=== PATIENT | male | born 1965 | race Caucasian/White ===

== ENCOUNTER 2020-04-02 14:06 | Emergency (ER) | payer BC, SELFPAY ==
--- NOTE | 2020-04-02 14:40 | XR_ITS ---
EXAMINATION: XR RIBS, LEFT CLINICAL INFORMATION: Pain status post fall COMPARISON: None TECHNIQUE: 3 views of the left ribs were obtained. Chest one view FINDINGS: Chest: The lungs are well-expanded and clear. The heart size and pulmonary vascularity is normal. No gross bony abnormality seen. XR/XR ribs LT min 3V w CXR1V IMPRESSION: Unremarkable chest exam.
--- NOTE | 2020-04-02 14:42 | ED.FALL ---
HPI - Fall General Chief Complaint: General Medical <WILLIAM Schaffer - Last Filed: 04/02/20 15:46> Stated Complaint: fell,work related rib pain <WILLIAM Schaffer - Last Filed: 04/02/20 15:46> Time Seen by Provider: 04/02/20 14:40 <WILLIAM Schaffer - Last Filed: 04/02/20 15:46> Source: patient <WILLIAM Schaffer - Last Filed: 04/02/20 15:46> Mode of arrival: ambulatory <WILLIAM Schaffer - Last Filed: 04/02/20 15:46> Limitations: no limitations <WILLIAM Schaffer - Last Filed: 04/02/20 15:46> History of Present Illness HPI Narrative: 55 y/o male presenting with left sided rib pain after a slip and fall on the ice while working. He reports the pain is on the left side of his chest and tender to touch. Worse with movement and deep breaths. Not SOB. No other injuries. <WILLIAM Schaffer - Last Filed: 04/02/20 15:46> MD complaint: fall <WILLIAM Schaffer - Last Filed: 04/02/20 15:46> Onset (ago): hour(s) (2) <WILLIAM Schaffer - Last Filed: 04/02/20 15:46> Fall from: standing <WILLIAM Schaffer - Last Filed: 04/02/20 15:46> Fall witnessed: no <WILLIAM Schaffer - Last Filed: 04/02/20 15:46> Place fall occurred: work and street <WILLIAM Schaffer - Last Filed: 04/02/20 15:46> Loss of consciousness: none <WILLIAM Schaffer - Last Filed: 04/02/20 15:46> Prolonged down time: no <WILLIAM Schaffer - Last Filed: 04/02/20 15:46> Symptoms prior to fall: chest pain (left sided rib) <WILLIAM Schaffer - Last Filed: 04/02/20 15:46> Context: tripped/slipped <WILLIAM Schaffer - Last Filed: 04/02/20 15:46> Location of injury: chest <WILLIAM Schaffer Last Filed: 04/02/20 15:46> Severity: severe <WILLIAM Schaffer Last Filed: 04/02/20 15:46> Severity scale (1-10): 8 <WILLIAM Schaffer Last Filed: 04/02/20 15:46> Quality: aching <WILLIAM Schaffer - Last Filed: 04/02/20 15:46> Associated symptoms (after fall): chest pain (left lower/side) <WILLIAM Schaffer Last Filed: 04/02/20 15:46> Related Data Home Medications: Previous Rx's Medication Instructions Recorded cyclobenzaprine 10 mg PO TID PRN #10 tab 04/02/20 lidocaine [Lidoderm] 1 patch TOPICAL DAILY #15 ea 04/02/20 naproxen 500 mg PO BID PRN #20 tab 04/02/20 <WILLIAM Schaffer Last Filed: 04/02/20 15:46> Allergies/Adverse Reactions: Allergies Allergy/AdvReac Type Severity Reaction Status Date / Time No Known Allergies Allergy Unverified 11/22/19 15:44 <WILLIAM Schaffer Last Filed: 04/02/20 15:46> Review of Systems Review of Systems: Constitutional: No Fever, No Chills Cardiovascular: + Chest Pain, No SOB, No Orthopnea, No Edema Respiratory: No Cough, No Sputum, No Wheezing, No dyspnea Gastrointestinal: No Nausea, No Vomiting, No Diarrhea, No abdominal Pain Genitourinary: No Dysuria, No Urinary Frequency, No Hematuria Musculoskeletal: + joint pain, + Myalgias Skin: No Skin Lesions, No rash Neuro: No Weakness, No Numbness, No Dizziness, No Headache Heme/Lymph: No Bruising <WILLIAM Schaffer Last Filed: 04/02/20 15:46> PMF Past Medical History Attestation statement: The following information was validated with the patient. <WILLIAM Schaffer Last Filed: 04/02/20 15:46> Medical History: Medical History (Updated 04/03/20 @ 00:00 by Background Daemon) No known health problems <WILLIAM Schaffer - Last Filed: 04/02/20 15:46> Social History Social History: Social History Smoked in Last 30 Days: No Use of substances other than those prescribed or required for medical reasons: No Advance Directives: No Advance Directives Information Provided: Yes <WILLIAM Schaffer - Last Filed: 04/02/20 15:46> Physical Exam Vital Signs: Vital Signs: Last Vital Signs Temp 97.0 F 04/02/20 15:03 Pulse 78 04/02/20 15:03 Resp 16 04/02/20 15:03 BP 189/85 H 04/02/20 15:03 Pulse Ox 99 04/02/20 15:03 Body Mass Index 0.3 Appearance: Alert. Oriented X3. No acute distress. HEENT: normal inspection CVS: Normal heart rate and rhythm. Pulses normal. Respiratory: No respiratory distress. left sided chest wall tenderness, lower anterior and left side Skin: Skin warm and dry. Normal skin color. Normal skin turgor. No rashes. Extremities: atraumatic, no edema Neuro: Oriented X 3. No motor deficit. No sensory deficit. <WILLIAM Schaffer - Last Filed: 04/02/20 15:46> Vital Signs: Last Vital Signs Temp 97.0 F 04/02/20 15:03 Pulse 78 04/02/20 15:03 Resp 16 04/02/20 15:03 BP 189/85 H 04/02/20 15:03 Pulse Ox 99 04/02/20 15:03 Body Mass Index 0.3 <Logan Venegas MD - Last Filed: 04/09/20 08:25> Course Course Course Narrative: 55 y/o male who works for [employer] presenting with left sided rib pain s/p fall on ice. No distress on exam but significant left chest wall tenderness. Lungs CTAB. Will get XR to further assess for rib fx. <WILLIAM Schaffer - Last Filed: 04/02/20 15:46> I have reviewed the chart <Logan Venegas MD - Last Filed: 04/09/20 08:25> Reevaluation(s) Reevaluation #1: XR negative for acute fracture. Stable for discharge home with NSAID and muscle relaxer. Will have him follow up with [facility] given work related injury. <WILLIAM Schaffer - Last Filed: 04/02/20 15:46> Discharge Plan Discharge Clinical Impression: Contusion <WILLIAM Schaffer - Last Filed: 04/02/20 15:46> Patient Disposition: Home, Self-Care <WILLIAM Schaffer - Last Filed: 04/02/20 15:46> Instructions: Rib Contusion (ED) <WILLIAM Schaffer - Last Filed: 04/02/20 15:46> Additional Instructions: Your x-rays today were normal - no rib fractures. Take the prescribed medications as needed for pain. Use ice to the area several times per day. Follow up with your doctor as needed. If you develop worsening pain, shortness of breath or difficulty breathing come back to the ER for further evaluation. <WILLIAM Schaffer - Last Filed: 04/02/20 15:46> Prescriptions: New cyclobenzaprine 10 mg tablet 10 mg PO TID PRN (Reason: muscle spasm) Qty: 10 RF: 0 lidocaine [Lidoderm] 5 % adhesive patch,medicated 1 patch topical DAILY Qty: 15 RF: 0 naproxen 500 mg tablet 500 mg PO BID PRN (Reason: pain) Qty: 20 RF: 0 <WILLIAM Schaffer - Last Filed: 04/02/20 15:46> Referrals: [facility] [Provider Group] - 2 days <WILLIAM Schaffer - Last Filed: 04/02/20 15:46> Stand Alone Forms: Work/School Release <WILLIAM Schaffer - Last Filed: 04/02/20 15:46> Interventions: ED Discharge Assessment Last Done: 04/02/20 16:09 <WILLIAM Schaffer - Last Filed: 04/02/20 15:46> Discharge Date/Time: 04/02/20 16:10 <WILLIAM Schaffer - Last Filed: 04/02/20 15:46>
[2020-04-02 15:03] VITALS: BP 189/85; PULSE 78; RESP 16; TEMP 36.1; O2SAT 99
[2020-04-02] MEDS: Ketorolac Tromethamine 30 MG/ML VIAL IM (15:56)
== END 2020-04-02 16:10 | disposition home or self-care (01) ==
PROVIDERS: Emergency Provider Emergency Medicine
DX: S20.212A Contusion of left front wall of thorax, initial encounter (principal); R07.89 Other chest pain; W00.0XXA Fall on same level due to ice and snow, initial encounter; Y93.9 Activity, unspecified; Y92.410 Unspecified street and highway as the place of occurrence of the external cause; Y99.0 Civilian activity done for income or pay; Z79.899 Other long term (current) drug therapy
CPT/HCPCS: 71101; 96372; 99283; 99284; J1885

== ENCOUNTER 2020-04-14 09:00 | Emergency (ER) | payer BC, SELFPAY ==
[2020-04-14 09:26] VITALS: BP 192/103; PULSE 91; RESP 16; TEMP 37.4; O2SAT 97; BMI 30.5
--- NOTE | 2020-04-14 09:50 | ED_ITS ---
HPI - General Adult General Chief complaint: General Medical Stated complaint: recheck lt rib area inj, Time Seen by Provider: 04/14/20 09:34 Source: patient Mode of arrival: ambulatory History of Present Illness HPI narrative: 55yo Male with no significant past medical history presenting to the ED complaining of continued left-sided rib pain s/p slip and fall out of work truck on 04/02. Patient was seen and evaluated in our ED after fall, had x-rays that were negative for fracture, diagnosed with rib contusion. States pain improving but still too severe to return to work, requesting work note. Denies fever, chills, cough, shortness of breath Onset (ago): day(s) Related Data Previous Rx's Medication Instructions Recorded cyclobenzaprine 10 mg PO TID PRN #10 tab 04/02/20 lidocaine [Lidoderm] 1 patch TOPICAL DAILY #15 ea 04/02/20 naproxen 500 mg PO BID PRN #20 tab 04/02/20 lidocaine [Lidoderm] 1 patch TOPICAL DAILY PRN #30 ea 04/14/20 MDD remove after 12 hours Allergies Allergy/AdvReac Type Severity Reaction Status Date / Time No Known Allergies Allergy Unverified 11/22/19 15:44 Review of Systems Review of Systems: Constitutional: No Weight loss, No Fever, No Chills Cardiovascular: + Chest wall Pain, No SOB Respiratory: No Cough, No Sputum, No Wheezing Musculoskeletal: No joint pain, No Myalgias, No Joint Swelling Skin: No Skin Lesions, No rash Yes all other systems are reviewed and are negative [facility] Past Medical History Attestation statement: The following information was validated with the patient. Medical History (Updated 04/14/20 @ 09:49 by WILLIAM Patino) No known health problems Social History Social History Smoked in Last 30 Days: No Use of substances other than those prescribed or required for medical reasons: No Advance Directives: No Advance Directives Information Provided: Yes Physical Exam Vital Signs: Vital Signs: Last Vital Signs Temp 99.4 F 04/14/20 09:26 Pulse 91 04/14/20 09:26 Resp 16 04/14/20 09:26 BP 192/103 H 04/14/20 09:26 Pulse Ox 97 04/14/20 09:26 Body Mass Index 30.5 Const: General: cooperative and healthy appearing Orientation/consciousness: patient oriented x3 Limitations: no limitations HENMT: Head: Yes normal to inspection Ears: hearing grossly normal bilaterally General nose exam: Normal external nose present Face and sinus: Yes normal facial exam Eyes: General: appearance normal, both eyes and all related structures EOM: EOMs intact bilaterally Neck: Neck: Yes normal visual inspection Chest: Other: Healing ecchymosis noted to left anterior ribs Chest palpation & inspection: no crepitus and tenderness rib (Left-sided upper anterior/lateral ribs) Resp: Effort & Inspection: normal respiratory effort Auscultation: clear to auscultation bilaterally Cardio: Rate: regular rate Heart sounds: S1 normal heart sound present and S2 normal heart sound present GI: Inspection: Yes normal to inspection Palpation (GI): Soft to palpation, nontender, no guarding and not rigid : General: Yes no CVA tenderness Back/Spine/Pelvis: Back: no CVA tenderness Skin: Rashes: no rashes Wounds: no wounds Neuro: General: patient oriented x3 Gait exam (Neuro): Normal gait present Extrem: General: Yes normal to inspection Medical Decision Making MDM Narrative Medical decision making narrative: On exam hypertensive, NAD/nontoxic, physical exam as above. Offered patient repeat x-ray, he did not deem necessary. Low concern for PE/ACS or pneumonia at this time. Discharge Plan Discharge Clinical Impression: Rib contusion Qualifiers: Encounter type: subsequent encounter Laterality: left Qualified Code(s): S20.212D - Contusion of left front wall of thorax, subsequent encounter Patient Disposition: Home, Self-Care Instructions: Rib Contusion (ED) Additional Instructions: Continue to ice your ribs and rest. Take Tylenol Motrin at home for pain. Use Lidoderm patches for pain as well. Continue to practice deep breathing, your risk of pneumonia if you do not take deep breaths. If developed fever, cough, shortness of breath, or generalized chest discomfort return to the ED Prescriptions: New lidocaine [Lidoderm] 5 % adhesive patch,medicated 1 patch topical DAILY MDD remove after 12 hours PRN (Reason: pain) Qty: 30 RF: 0 No Action cyclobenzaprine 10 mg tablet 10 mg PO TID PRN (Reason: muscle spasm) Qty: 10 RF: 0 lidocaine [Lidoderm] 5 % adhesive patch,medicated 1 patch topical DAILY Qty: 15 RF: 0 naproxen 500 mg tablet 500 mg PO BID PRN (Reason: pain) Qty: 20 RF: 0 Referrals: Physician,None [Primary Care Provider] - 5 days Stand Alone Forms: Work/School Release Interventions: ED Discharge Assessment Last Done: 04/14/20 09:54 Discharge Date/Time: 04/14/20 09:55
== END 2020-04-14 09:55 | disposition home or self-care (01) ==
PROVIDERS: Emergency Provider Emergency Medicine
DX: S20.212D Contusion of left front wall of thorax, subsequent encounter (principal); W17.89XA Other fall from one level to another, initial encounter; I10 Essential (primary) hypertension; Y93.89 Activity, other specified; Y92.812 Truck as the place of occurrence of the external cause; Y99.0 Civilian activity done for income or pay
CPT/HCPCS: 99283

== ENCOUNTER 2021-10-03 11:12 | Emergency (ER) | payer BC, SELFPAY ==
[2021-10-03 11:42] VITALS: BP 123/80; PULSE 82; RESP 18; TEMP 36.6; O2SAT 93; BMI 32.3
[2021-10-03 12:42] LABS: MANUAL DIFF FLAG NO
[2021-10-03 12:45] LABS: Basophils Percent Auto 0.9 % (0-2); Eosinophils Absolute Auto 0.1 X10*3/uL (0.0-0.4); Eosinophils Percent Auto 1.2 % (0-4); Hematocrit 37.6 % (42.0-52.0); Hemoglobin 12.5 g/dl (14.0-18.0); Imm Gran Abs Auto 0.01 X10*3/uL (0.00-0.03); Imm Gran Pct Auto 0.2 % (0.0-0.4); Lymphocytes Absolute Auto 1.1 X10*3/uL (1.2-4.9); Lymphocytes Percent Auto 26.5 % (20-40); Mean Corpuscular HGB Conc 33.2 g/dl (31.0-36.0); Mean Corpuscular Hemoglobin 31.5 pg (27.0-33.0); Mean Corpuscular Volume 94.7 fL (80.0-98.0); Mean Platelet Volume 9.4 fL (9.4-12.4); Monocytes Absolute Auto 0.6 X10*3/uL (0.1-1.2); Neutrophils Absolute Auto 2.5 x10*3/uL (2.0-8.3); Neutrophils Percent Auto 58.2 % (45-73); Platelet Count 180 X10*3/uL (160-400); Red Blood Count 3.97 X10*6/uL (4.60-5.80); Red Cell Distribution Width 13.9 % (11.0-16.0); White Blood Count 4.2 X10*3/uL (4.8-10.8)
[2021-10-03 13:27] LABS: Alanine Aminotransferase 60 U/L (0-40); Alkaline Phosphatase 133 U/L (39-117); Anion Gap 15 (12-20); Aspartate Amino Transferase 115 U/L (5-37); Bilirubin Direct 0.3 mg/dL (0.0-0.5); Bilirubin Total 0.7 mg/dL (0.0-1.0); Blood Urea Nitrogen 3 mg/dL (9-16); Calcium 8.4 mg/dL (8.4-10.2); Carbon Dioxide 23 mmol/L (22-29); Chloride 102 mmol/L (96-108); Creatinine Clr Calc Pharmacy 154.8; Estimated Glomerular Filt Rate > 60; Glucose Random 105 mg/dL (60-115); Lipase 10 U/L (8-78); Potassium 3.6 mmol/L (3.3-5.1); Sodium 136 mmol/L (135-145); Total Protein 7.7 g/dL (6.5-8.0)
--- NOTE | 2021-10-03 17:21 | ED_ITS ---
HPI - General Adult General Chief complaint: Nausea/Vomiting/Diarrhea Stated complaint: high bp/dizziness Time Seen by Provider: 10/03/21 17:06 Source: patient Mode of arrival: ambulatory Limitations: no limitations History of Present Illness HPI narrative: Patient comes to the emergency room complaining of stress. Patient states that earlier today he was at work, he had an argument with his boss, per patient he was told to come to the emergency room by his boss and get a work note. Patient has no complaints. Patient denies suicidal or homicidal ideation Related Data Previous Rx's Medication Instructions Recorded cyclobenzaprine 10 mg tablet 10 mg PO TID PRN muscle spasm #10 04/02/20 tabs lidocaine 5 % topical patch 1 patch topical DAILY #15 ea 04/02/20 (Lidoderm) naproxen 500 mg tablet 500 mg PO BID PRN pain #20 tabs 04/02/20 lidocaine 5 % topical patch 1 patch topical DAILY PRN pain #30 04/14/20 (Lidoderm) ea Allergies Allergy/AdvReac Type Severity Reaction Status Date / Time No Known Allergies Allergy Verified 10/03/21 11:41 Review of Systems Review of Systems: Constitutional : No Weight loss, No Fever, No Chills, No Night Sweats, No Fatigue, No Malaise ENT/Mouth : No Hearing loss, No Ear Pain, No Nasal Congestion, No Sinus Pain, No Hoarseness, No sore throat, No Rhinorrhea, No Swallowing Difficulty Eyes: No Eye Pain, No Swelling, No Redness, No Foreign Body, No Discharge, No Vision Changes Cardiovascular : No Chest Pain, No SOB, No Dyspnea on Exertion, No Orthopnea, No Edema, No Palpitations Respiratory : No Cough, No Sputum, No Wheezing, No Smoke Exposure, No Dyspnea Gastrointestinal : No Nausea, No Vomiting, No Diarrhea, No Constipation, No abdominal Pain, No Hematochezia, No Melena Genitourinary : no irregular bleeding, No Dysuria, No Urinary Frequency, No Hematuria, No Urinary Incontinence, No Urgency, No Flank Pain, No Urinary Flow Changes, No Hesitancy Musculoskeletal : No joint pain, No Myalgias, No Joint Swelling Skin : No Skin Lesions, No rash Neuro : No Weakness, No Numbness, No Paresthesias, No Loss of Consciousness, No Dizziness, No Headache Psych : No Anxiety/Panic, No Depression, No SI/HI/AH/VH, No Social Issues, feeling stressed Heme/Lymph: No Bruising, No Bleeding,No Lymphadenopathy Endocrine : No Polyuria, No Polydipsia, No Temperature Intolerance [facility] Past Medical History Medical History No known health problems Social History Social History Advance Directives: No Advance Directives Information Provided: Yes Physical Exam ED Vital Signs: Vital Signs - 24 hr 10/03/21 11:42 Temperature 97.8 F Pulse Rate 82 Respiratory Rate 18 Blood Pressure 123/80 Pulse Oximetry 93 Oxygen Delivery Method Room Air BMI result Body Mass Index 32.3 Const Other: Appearance: Alert. Oriented X3. No acute distress. Eyes: Pupils equal, round and reactive to light. ENT: Pharynx normal. Neck: Normal inspection. Neck supple. No lymph nodes noted. No crepitus CVS: Normal heart rate and rhythm. Pulses normal. Normal S1 and S2 Respiratory: No respiratory distress. Breath sounds normal. No Wheezing. No rales Abdomen: Soft and nontender. No rigidity. No distention. Skin: Skin warm and dry. Normal skin color. Normal skin turgor. Extremities: No lower extremity edema. No Lacerations. No Rash Neuro: Oriented X 3. No motor deficit. No sensory deficit. Moving all extremities. No slurred speech. CN 2 through 12 grossly intact Psych: calm, cooperative, normal affect Course Course Course Narrative: I discussed labs with the patient, patient ready to be discharged. Patient has no physical complaints. Denies SI or HI Medical Decision Making Lab Data Result diagrams: 10/03/21 12:32 10/03/21 12:32 Labs: Lab Results 10/03/21 10/03/21 Range/Units 12:32 12:32 WBC 4.2 L (4.8-10.8) X10*3/uL RBC 3.97 L (4.60-5.80) X10*6/uL Hgb 12.5 L (14.0-18.0) g/dl Hct 37.6 L (42.0-52.0) % MCV 94.7 (80.0-98.0) fL MCH 31.5 (27.0-33.0) pg MCHC 33.2 (31.0-36.0) g/dl RDW 13.9 (11.0-16.0) % Plt Count 180 (160-400) X10*3/uL MPV 9.4 (9.4-12.4) fL Immature Gran % (Auto) 0.2 (0.0-0.4) % Neut % (Auto) 58.2 (45-73) % Lymph % (Auto) 26.5 (20-40) % [place] % (Auto) 13.0 H (2-11) % Eos % (Auto) 1.2 (0-4) % Baso % (Auto) 0.9 (0-2) % Lymph # (Auto) 1.1 L (1.2-4.9) X10*3/uL [place] # (Auto) 0.6 (0.1-1.2) X10*3/uL Eos # (Auto) 0.1 (0.0-0.4) X10*3/uL Baso # (Auto) 0.0 (0.0-0.2) X10*3/uL Abs Immat Gran (auto) 0.01 (0.00-0.03) X10*3/uL Absolute Neuts (auto) 2.5 (2.0-8.3) x10*3/uL Absolute Nucleated RBC 0.000 (0.0-0.012) X10*3/uL Nucleated RBC % (auto) 0.0 (0.0-0.2) /100WBC Sodium 136 (135-145) mmol/L Potassium 3.6 (3.3-5.1) mmol/L Chloride 102 (96-108) mmol/L Carbon Dioxide 23 (22-29) mmol/L Anion Gap 15 (12-20) BUN 3 L (9-16) mg/dL Creatinine 0.66 (0.5-1.4) mg/dL Estim Creat Clear Calc 154.8 Estimated GFR > 60 Random Glucose 105 (60-115) mg/dL Calcium 8.4 (8.4-10.2) mg/dL Total Bilirubin 0.7 (0.0-1.0) mg/dL Direct Bilirubin 0.3 (0.0-0.5) mg/dL AST 115 H (5-37) U/L ALT 60 H (0-40) U/L Alkaline Phosphatase 133 H (39-117) U/L Total Protein 7.7 (6.5-8.0) g/dL Albumin 4.0 (3.5-5.0) g/dL Lipase 10 (8-78) U/L Discharge Plan Discharge Clinical Impression: Stress at work Patient Disposition: Home, Self-Care Instructions: Anxiety (ED) Additional Instructions: Please follow-up with your primary care physician tomorrow. If you have any worsening or new symptoms, please return to the emergency room or call 911 Prescriptions: No Action cyclobenzaprine 10 mg tablet 10 mg PO TID PRN (Reason: muscle spasm) Qty: 10 0RF lidocaine [Lidoderm] 5 % adhesive patch,medicated 1 patch topical DAILY Qty: 15 0RF Rx Instructions: leave on most painful area for up to 12 hrs naproxen 500 mg tablet 500 mg PO BID PRN (Reason: pain) Qty: 20 0RF lidocaine [Lidoderm] 5 % adhesive patch,medicated 1 patch topical DAILY MDD remove after 12 hours PRN (Reason: pain) Qty: 30 0RF Rx Instructions: leave on most painful area for up to 12 hrs
== END 2021-10-03 17:45 | disposition home or self-care (01) ==
PROVIDERS: Emergency Provider Emergency Medicine
DX: R11.2 Nausea with vomiting, unspecified (principal); R19.7 Diarrhea, unspecified; Z56.6 Other physical and mental strain related to work
CPT/HCPCS: 36415; 80048; 80076; 83690; 85025; 99283

== ENCOUNTER 2022-05-11 07:54 | Outpatient (REF) | payer BC, SELFPAY ==
--- NOTE | ~2022-05-11 | XR_ITS ---
EXAMINATION: XR HIP, LEFT CLINICAL INFORMATION: Pain status-post injury. COMPARISON: None TECHNIQUE: AP and frog-leg lateral views of the left hip. FINDINGS: Bony mineralization is normal. There is moderate narrowing of the left acetabular joint space, in particular superolateral. There is mild subchondral sclerosis of the left acetabular roof, with a small peripheral osteophyte. No fracture or dislocation is seen. The left femoral head is smooth. There are pelvic phleboliths. No foreign body is seen. XR/XR hip LT min 2V IMPRESSION: There is moderate osteoarthritic change of the left hip. No fracture or dislocation is seen.
[2022-05-11 08:08] LABS: MANUAL DIFF FLAG NO
[2022-05-11 08:45] LABS: Basophils Percent Auto 0.5 % (0-2); Eosinophils Absolute Auto 0.1 X10*3/uL (0.0-0.4); Hematocrit 37.3 % (42.0-52.0); Hemoglobin 13.7 g/dl (14.0-18.0); Imm Gran Abs Auto 0.04 X10*3/uL (0.00-0.03); Imm Gran Pct Auto 0.7 % (0.0-0.4); Immature Retic Fraction 7.5 % (2.3-13.4); Lymphocytes Percent Auto 16.7 % (20-40); Mean Corpuscular HGB Conc 36.7 g/dl (31.0-36.0); Mean Corpuscular Hemoglobin 36.1 pg (27.0-33.0); Mean Corpuscular Volume 98.4 fL (80.0-98.0); Mean Platelet Volume 10.2 fL (9.4-12.4); Monocytes Absolute Auto 0.6 X10*3/uL (0.1-1.2); Monocytes Percent Auto 10.7 % (2-11); Neutrophils Absolute Auto 4.1 x10*3/uL (2.0-8.3); Neutrophils Percent Auto 70.4 % (45-73); Platelet Count 218 X10*3/uL (160-400); Red Blood Count 3.79 X10*6/uL (4.60-5.80); Red Cell Distribution Width 13.3 % (11.0-16.0); Retic HGB Equivalent 37.2 pg (30.0-35.0); Reticulocyte Percent 1.8 % (0.5-1.8); Reticulocytes Absolute 0.069 X10*6/uL (0.026-0.095); White Blood Count 5.8 X10*3/uL (4.8-10.8)
[2022-05-11 09:10] LABS: B Type Natriuretic Peptide 29 pg/mL (<100)
[2022-05-11 09:19] LABS: Alanine Aminotransferase 49 U/L (0-40); Albumin Level 4.1 g/dL (3.5-5.0); Alkaline Phosphatase 119 U/L (39-117); Anion Gap 14 (12-20); Aspartate Amino Transferase 81 U/L (5-37); Bilirubin Total 0.9 mg/dL (0.0-1.0); Blood Urea Nitrogen 5 mg/dL (9-16); Calcium 9.1 mg/dL (8.4-10.2); Carbon Dioxide 28 mmol/L (22-29); Chloride 101 mmol/L (96-108); Cholesterol 229 mg/dL; Estimated Glomerular Filt Rate > 60; Glucose Random 93 mg/dL (60-115); HDL Cholesterol 62 mg/dL; Iron 97 mcg/dL (45-160); LDL Cholesterol Calculated 152 mg/dl; Percent Iron Saturation 31 % (15-50); Potassium 4.3 mmol/L (3.3-5.1); Sodium 139 mmol/L (135-145); Total Iron Binding Capacity 312 mcg/dL (228-428); Total Protein 7.8 g/dL (6.5-8.0); Triglycerides 77 mg/dL; Unsaturated Iron Binding 215 ug/dL
[2022-05-11 09:43] LABS: Ferritin 467 ng/mL (20-250); Folate 11.5 ng/mL (> or = 4.0); Free T4 (Free Thyroxine) 0.94 ng/dL (0.71-1.85); Prostate Specific Antigen Scr 2.61 ng/mL (<0.05-4.0); Thyroid Stimulating Hormone 2.15 uIU/mL (0.32-4.0); Vitamin B12 272 pg/mL (200-900)
[2022-05-12 05:48] LABS: HBc Num1 0.13 S/CO (0.00-0.79); HBsAGNum1 0.32 S/CO (0.00-0.99); Hepatitis B Core Antibody Nonreactive (Nonreactive); Hepatitis B Surface Antigen Negative (Negative); ~HepC Num1 0.36 S/CO (0.00-0.79); ~Hepatitis B Surface Antibody NONREACTIVE (Nonreactive); ~Hepatitis C Antibody Nonreactive (Nonreactive)
== END 2022-05-11 07:55 | disposition home or self-care (01) ==
LOC: HO.LAB 07:54
PROVIDERS: PCP Internal Medicine; Visit Provider Internal Medicine
DX: E78.00 Pure hypercholesterolemia, unspecified (principal); R19.7 Diarrhea, unspecified; R22.42 Localized swelling, mass and lump, left lower limb; R79.89 Other specified abnormal findings of blood chemistry; K76.0 Fatty (change of) liver, not elsewhere classified; M79.89 Other specified soft tissue disorders; M25.552 Pain in left hip; Z12.5 Encounter for screening for malignant neoplasm of prostate
CPT/HCPCS: 36415; 73502; 80053; 80061; 82607; 82728; 82746; 83540; 83880; 84153; 84439; 84443; 85025; 85045; 86704; 86706; 86803; 87340

== ENCOUNTER 2023-02-11 10:46 | Outpatient (REF) | payer BC, SELFPAY ==
--- NOTE | ~2023-02-11 | XR_ITS ---
EXAMINATION: XR KNEE, RIGHT CLINICAL INFORMATION: Primary osteoarthritis COMPARISON: None available. TECHNIQUE: Four views of the right knee. FINDINGS: No fracture or dislocation. No suprapatellar joint effusion. Moderate narrowing of the medial joint space height. Small tricompartmental marginal osteophytes. No localized soft tissue swelling of the anterior knee. XR/XR knee RT 4V IMPRESSION: Mild to moderate degenerative changes of the right knee.
== END 2023-02-11 10:47 | disposition home or self-care (01) ==
LOC: HO.XRAY 10:46
PROVIDERS: Visit Provider Physical Medicine & Rehabilitation
DX: M17.11 Unilateral primary osteoarthritis, right knee (principal)
CPT/HCPCS: 73564

== ENCOUNTER 2023-03-14 11:29 | Outpatient (AMB) | payer BC, SELFPAY ==
[2023-03-14 11:44] VITALS: BP 140/82; PULSE 87; TEMP 37.3; O2SAT 96; BMI 35.5
--- NOTE | 2023-03-14 11:44 | MHC.OFFWIV ---
Intake Vital Signs 03/14/23 11:44 Height 6 ft Weight 261 lb 8 oz BMI 35.5 BP 140/82 H Blood Pressure Location Lt brachial Position Sitting Pulse 87 Pulse Source Pulse Oximeter Temp 99.1 F Temp Source Oral Pulse Oximetry (%) 96 Intake Visit Reasons: EP, body aches, headache (masked-no phone) Intake Note: pt is here today for body aches and headache started for the last day, with no sleep. Vomited 3 times last night. Patient Tobacco Use Status: Former Tobacco user Allergies No Known Allergies Allergy (Verified 03/14/23 11:45) Do you need a note to return to daycare/school/sports/work: Yes HPI HPI Comments History of Present Illness Details Jose is a very pleasant 58 year old male who presents to walkin clinic today for cough and bodyaches X 1 day Patient reports he works at the [employer], 2 coworkers recently returned after being out with Covid. He started with body aches, fatigue and cough since yesterday Cough is nonproductive. Was not able to sleep last night, couldn't get comfortable d/t body aches Has not tested for Covid, called out from work and requesting a work note Denies chest pain, syncope, dizziness, weakness, palpitations, diarrhea. Vomited yesterday but has been able to tolerate po today. [facility] Medical History No known health problems Family History Maternal Grandfather Pancreatic cancer Social History Housing: Condominium Alcohol intake: current Alcohol intake frequency: a few times a month Alcohol type: beer Patient Tobacco Use Status: Former Tobacco user Tobacco use type: Cigarette Years Smoked: 11 years old e-Cigarette/Vaping Use: Never Used Second Hand Smoke Exposure: No Current occupational status: employed Cognitive needs: No Hearing needs: No Vision needs: Yes Review of Systems Const All systems reviewed & are unremarkable except as noted in HPI and below Physical Exam Vital Signs: Last Vital Signs Temp 99.1 F 03/14/23 11:44 Pulse 87 03/14/23 11:44 BP 140/82 H 03/14/23 11:44 Pulse Ox 96 03/14/23 11:44 BMI result Body Mass Index 35.5 General: awake, alert, oriented. Answers questions appropriately. Fully engaged in examination. Skin: warm, dry, intact HEENT: TMs intact bilaterally, no redness. Posterior pharynx without erythema or exudate. Sclera without icterus or injection. no lymphadenopathy. Cardiac: External chest normal in appearance. Respiratory: +cough. LSCTAB. Abdomen: without gross distension. Neurological: Oriented to person, place, time and situation. Thought process intact. Psychiatric: Appropriate mood and affect. Good judgment and insight. Assessment & Plan Assessment & Plan (1) Cough: Code(s): R05.9 - Cough, unspecified (2) Exposure to COVID-19 virus: Code(s): Z20.822 - Contact with and (suspected) exposure to COVID-19 Plan URI, no abx warranted. SARS-CoV2/FLU/RSV swab collected, results pending. Patient aware he will be called with results. Benzonatate 100mg po bid as needed Rest, drink plenty of fluids, tylenol or motrin as needed. Recommend taking OTC nasal decongestants or flonase. Follow up with pcp or in clinic for any new or worsening symptoms. Go to ER for shortness of breath, chest pain, palpitations, weakness, dizziness. All questions and concerns addressed during the visit. Patient agrees with the plan. Orders: Orders SARS-CoV2/FLU/RSV Today J06.9 - Acute upper respiratory infection, unspecified Medications: New benzonatate 100 mg PO BID PRN 20 caps 0RF cough Coding Level of Care Code Est Pt Level 4 (01867) Diagnoses Cough R05.9 Exposure to COVID-19 virus Z20.822
== END 2023-03-14 13:29 | disposition home or self-care (01) ==
PROVIDERS: PCP Internal Medicine; Visit Provider Registered Nurse Emergency
DX: R05.9 Cough, unspecified (principal); Z20.822 Contact with and (suspected) exposure to COVID-19
CPT/HCPCS: 99214

== ENCOUNTER 2023-03-14 13:18 | Outpatient (REF) | payer BC, SELFPAY ==
[2023-03-14 18:02] LABS: Influenza A PCR POSITIVE (Negative); Influenza B PCR NEGATIVE (Negative); Resp Syncy Virus RNA Qual PCR NEGATIVE (Negative); SARS COV2 PCR INHOUSE NEGATIVE (Negative)
== END 2023-03-14 13:19 | disposition home or self-care (01) ==
LOC: HO.LAB 13:18
PROVIDERS: Visit Provider Registered Nurse Emergency
DX: Z11.52 Encounter for screening for COVID-19 (principal); J06.9 Acute upper respiratory infection, unspecified
CPT/HCPCS: 0241U

== ENCOUNTER 2023-06-10 11:16 | Emergency (ER) | payer BC, SELFPAY ==
--- NOTE | ~2023-06-10 | XR_ITS ---
STUDY: Chest, left rib series and left breast INDICATION: Pain after injury COMPARISON: 04/02/2020 ribs TECHNIQUE: PA chest, 3 view left rib series, 4 views left breast FINDINGS: Chest and left ribs: Heart, mediastinum and vascularity within normal limits. Right lung is clear. Multiple interval, but old appearing/healing left rib fractures are seen. BB is placed in the lower left lateral rib cage. Acute appearing fracture now seen involving the eighth anterolateral rib. Left wrist: Arrow points to the ulnar aspect of the wrist where no radiographic finding is seen. There is, however, mildly displaced fracture of the radial aspect of the distal radius. Degenerative changes identified first carpometacarpal joint. XR/XR ribs LT min 3V w CXR1V IMPRESSION: Acute appearing nondisplaced left eighth anterolateral rib fracture superimposed on multiple old appearing left rib fractures. Acute-appearing distal left radial fracture.
--- NOTE | ~2023-06-10 | XR_ITS ---
STUDY: Chest, left rib series and left breast INDICATION: Pain after injury COMPARISON: 04/02/2020 ribs TECHNIQUE: PA chest, 3 view left rib series, 4 views left breast FINDINGS: Chest and left ribs: Heart, mediastinum and vascularity within normal limits. Right lung is clear. Multiple interval, but old appearing/healing left rib fractures are seen. BB is placed in the lower left lateral rib cage. Acute appearing fracture now seen involving the eighth anterolateral rib. Left wrist: Arrow points to the ulnar aspect of the wrist where no radiographic finding is seen. There is, however, mildly displaced fracture of the radial aspect of the distal radius. Degenerative changes identified first carpometacarpal joint. XR/XR wrist LT min 3V IMPRESSION: Acute appearing nondisplaced left eighth anterolateral rib fracture superimposed on multiple old appearing left rib fractures. Acute-appearing distal left radial fracture.
[2023-06-10 11:45] VITALS: BP 158/59; PULSE 84; RESP 18; TEMP 37.1; O2SAT 97; BMI 30.1
--- NOTE | 2023-06-10 11:45 | ED_ITS ---
HPI - General Adult General Chief complaint: Fall Stated complaint: fall l side inj Time Seen by Provider: 06/10/23 14:31 Source: patient Mode of arrival: ambulatory Limitations: no limitations History of Present Illness HPI narrative: Patient is a 58 year old assigned male at with a history of anemia presenting to the emergency department today with left wrist and rib pain. Patient states that earlier today he slipped on a curb and landed on his left side and now has left wrist and left rib pain. Patient denies any head strike or loss of consciousness. Patient denies any dizziness, lightheadedness, abdominal pain, nausea, vomiting, fever, chills, blurry vision, double vision, loss of vision, chest pain, difficulty breathing, shortness of breath, back pain, night sweats, pain with urination, increased urinary frequency, increased urinary urgency, blood in his urine or stool, syncope or a near syncopal episode, bowel incontinence, bladder incontinence, bowel retention, bladder retention, or any other complaints at this time. Onset (ago): minute(s) Severity: mild Severity scale (1-10): 3 Pain Consistency: constant Relieving factors: none Exacerbating factors: none Associated symptoms: denies other symptoms Treatments prior to arrival: none Related Data Previous Rx's ?Medication ?Instructions ?Recorded blood pressure monitor (Blood #1 ea 02/16/22 Pressure Kit) sildenafil 100 mg tablet (Viagra) 100 mg PO DAILY PRN sexual 07/21/22 activity #14 tabs benzonatate 100 mg capsule 100 mg PO BID PRN cough #20 caps 03/14/23 amoxicillin 875 mg-potassium 1 tab PO BID 10 days #20 tabs 06/10/23 clavulanate 125 mg tablet Allergies Allergy/AdvReac Type Severity Reaction Status Date / Time No Known Allergies Allergy Verified 06/10/23 11:47 Review of Systems Constitutional: Constitutional: Reports no additional constitutional complaints, Denies chills, Denies fever(s) and Denies night sweats Eyes: Eyes: Reports no additional eye complaints, Denies blurry vision, Denies change in vision, Denies diplopia, Denies eye discharge, Denies loss of vision and Denies eye pain ENT: Denies dizziness Cardiovascular: Cardiovascular: Reports no additional cardiovascular complaints, Denies chest pain, Denies lightheadedness, Denies Loss of Consciousness and Denies dyspnea Respiratory: Respiratory: Reports no additional respiratory complaints and Denies dyspnea Gastrointestinal: Gastrointestinal: Reports no additional gastrointestinal complaints, Denies abdominal pain, Denies melena, Denies hematochezia, Denies change in bowel habits and Denies change in stool character Genitourinary: Genitourinary: Reports no additional male genitourinary complaints, Denies hematuria, Denies oliguria, Denies difficulty urinating, Denies dysuria, Denies urinary frequency, Denies urinary hesitancy, Denies urinary incontinence and Denies urinary urgency Musculoskeletal: Musculoskeletal: Reports no additional musculoskeletal complaints, Denies numbness and Denies tingling Comments: left hand pain, left rib pain Neurologic: Denies dizziness, Denies loss of vision, Denies numbness and Denies tingling Psychiatric: Psychiatric: Reports no additional psychiatric complaints Endocrine: Endocrine: Reports no additional endocrine complaints Hematologic/Lymphatic: Hematologic/Lymphatic: Reports no additional hematologic/lymphatic complaints Allergic/Immunologic: Allergic/Immunologic: Reports no additional allergic/immunologic complaints PMFSH Past Medical History Attestation statement: The following information was validated with the patient. Source: old records reviewed and nursing notes reviewed Medical History No known health problems Family History Family History Maternal Grandfather Pancreatic cancer Social History Social History [facility] Alcohol intake: current Alcohol intake frequency: a few times a month Alcohol type: beer Patient Tobacco Use Status: Former Tobacco user Tobacco use type: Cigarette Years Smoked: 11 years old e-Cigarette/Vaping Use: Never Used Second Hand Smoke Exposure: No Advance Directives: No Advance Directives Information Provided: No Current occupational status: employed Cognitive needs: No Hearing needs: No Vision needs: Yes Physical Exam ED Vital Signs: Vital Signs - 24 hr 06/10/23 11:45 06/10/23 14:51 Temperature 98.7 F 98.4 F Pulse Rate 84 78 Respiratory Rate 18 16 Blood Pressure 158/59 H 173/95 H Pulse Oximetry 97 Oxygen Delivery Method Room Air Room Air BMI result Body Mass Index 30.1 Const General: cooperative, no acute distress, alert and awake Nutritional Appearance: well nourished Orientation/consciousness: patient oriented x3 Limitations: no limitations HENMT Head: Yes normal to inspection and Yes atraumatic Ears: hearing grossly normal bilaterally and external ears normal General nose exam: Normal external nose present, no nasal discharge noted and no epistaxis Face and sinus: Yes normal facial exam, No abrasion and No laceration Mouth: Normal oral and palatal mucosa present, no drooling and no muffled voice Eyes General: appearance normal, both eyes and all related structures Periorbital: periorbital findings normal Eyelids: Yes eyelids normal Conjunctivae: conjunctivae normal Pupils: Equal, round and reactive pupils present EOM: EOMs intact bilaterally Neck Neck: Yes normal visual inspection, Yes full ROM and Yes no lymphadenopathy Chest Chest palpation & inspection: normal inspection of the chest Resp Effort & Inspection: normal respiratory effort and able to speak in complete sentences GI Inspection: Yes normal to inspection Neuro General: patient oriented x3 and moves all extremities Cranial nerves: Yes Equal, round and reactive pupils present Cognition (Neuro): normal cognition Motor exam (neuro): 5/5 motor strength present throughout Sensory Exam: Normal double simultaneous stimulation for sensation Coordination: [id number] test normal Extrem Other: small abrasion to the dorsal left wrist - no active bleeding, left wrist swelling General: Yes full ROM and Yes capillary refill normal Psych Appearance: grossly normal Mental Status: mental status grossly normal Affect: normal affect Attitude: cooperative Thought process: Normal thought process present Thought content: Normal thought content present Insight: Good insight present (Psych) Course Course Course Narrative: RME performed by Regine Sloan PA-C. Patient is a 58 year old assigned male at presenting to the emergency department with left rib pain and left wrist pain after a slip and fall. Detailed physical exam and review of systems are deferred to the printed circuit board panels trimmer. Imaging ordered. Patient placed back in the waiting room pending room availability and results. Procedures Orthopedic Splinting/Casting Injury #1: Side: left Upper Extremity Injury Location: wrist Upper Extremity Immobilizer: sling/shoulder immobilizer and sugar tong splint Medical Decision Making Medical Decision Making MDM Narrative: Patient is a 58 year old assigned male at with a history of anemia presenting to the emergency department today with left wrist and left rib pain. Patient's physical exam was as noted in the physical exam portion of this note. Patient's left ribs and chest x-ray showed an acute left 8th rib fx with multiple old fractures. Patient's left wrist x-ray showed a distal left radial fracture. I explained my physical exam findings as well as all test results to the patient. I answered all questions asked by the patient. Patient's left wrist was splinted in a sugar tong splint, without incident. Patient's PMS was intact prior to and after splint placement. Patient's left arm was placed in a sling. Patient's PMS was intact prior to and after sling placement. Given patient's small abrasion over the fractured wrist, will cover with augmentin. I stressed the importance of the patient taking his medication as prescribed. I stressed the importance of the patient following up with his primary care provider and an orthopedic provider. I stressed the importance of the patient returning to the emergency department immediately if his symptoms were to worsen or if he were to develop any dizziness, shortness of breath, difficulty breathing, chest pain, blurry vision, loss of vision, nausea, vomiting, abdominal pain, fever, chills, back pain, or any other complaints. Patient verbalized agreement and understa nding with this treatment plan and discharge. Differential Diagnosis Differential Diagnoses: The differential diagnosis associated with the presentation includes Left wrist fracture Left rib fracture Fall Admission/Observation Consideration of admission/observation: Escalation of care including admission/observation considered Patient would have been admitted to the hospital had his work up had any findings where hospital admission was appropriate and his clinical presentation warranted hospital admission. Independent Interpretation I performed an independent interpretation of an: Plain X-Ray Interpretation: My interpretation is in agreement with the radiologist's impression of these imaging studies. STUDY: Chest, left rib series and left breast INDICATION: Pain after injury COMPARISON: 04/02/2020 ribs TECHNIQUE: PA chest, 3 view left rib series, 4 views left breast FINDINGS: Chest and left ribs: Heart, mediastinum and vascularity within normal limits. Right lung is clear. Multiple interval, but old appearing/healing left rib fractures are seen. BB is placed in the lower left lateral rib cage. Acute appearing fracture now seen involving the eighth anterolateral rib. Left wrist: Arrow points to the ulnar aspect of the wrist where no radiographic finding is seen. There is, however, mildly displaced fracture of the radial aspect of the distal radius. Degenerative changes identified first carpometacarpal joint. XR/XR ribs LT min 3V w CXR1V IMPRESSION: Acute appearing nondisplaced left eighth anterolateral rib fracture superimposed on multiple old appearing left rib fractures. Acute-appearing distal left radial fracture Dictated By: Juju Ozuna MD Signed By: Electronically signed by Juju Ozuna MD 06/10/23 9420 Radiology Impression Discussion of test interpretation with radiology: I have reviewed the radiologist's reading. Prescription Management I considered prescription management with: Antibiotic (patient prescribed augmentin to cover possible open fx) Discharge Plan Discharge Clinical Impression: Fracture of wrist, Fracture of rib Patient Disposition: Home, Self-Care Instructions: Wrist Fracture in Adults (ED), Rib Fracture (ED) Additional Instructions: Do NOT get the splint wet. If you feel the splint is too tight, you may loosen the AGUSTO wraps around it. If you find yourself loosening them so much you see the underlying splint material, return to ther ER immediately. Follow up with your primary care provider and an orthopedic provider. Return to the emergency department immediately if your symptoms worsen or if you develop any dizziness, shortness of breath, difficulty breathing, chest pain, blurry vision, loss of vision, nausea, vomiting, abdominal pain, fever, chills, back pain, or any other complaints. Prescriptions: New amoxicillin-pot clavulanate 875-125 mg tablet 1 tab PO BID 10 Days Qty: 20 0RF No Action (DME) blood pressure monitor [Blood Pressure Kit] Kit See Rx Instructions .ROUTE .MEDSUPPLY Qty: 1 0RF Rx Instructions: As directed sildenafil [Viagra] 100 mg tablet 100 mg PO DAILY PRN (Reason: sexual activity) Qty: 14 3RF Rx Instructions: administer 30 minutes to 4 hours before activity benzonatate 100 mg capsule 100 mg PO BID PRN (Reason: cough) Qty: 20 0RF Referrals: [facility] [place] [facility] [Provider Group] (Call to establish and follow up with the orthopedic team. ) Joycelyn Blankenship MD [Primary Care Provider] - Stand Alone Forms: Work/School Release Interventions: ED Discharge Assessment Last Done: 06/10/23 14:51 Discharge Date/Time: 06/10/23 14:52 Print Language: [place]er
[2023-06-10 14:51] VITALS: BP 173/95; PULSE 78; RESP 16; TEMP 36.9
== END 2023-06-10 14:52 | disposition home or self-care (01) ==
PROVIDERS: Emergency Provider Emergency Medicine; PCP Internal Medicine
DX: S52.502A Unspecified fracture of the lower end of left radius, initial encounter for closed fracture (principal); S22.32XA Fracture of one rib, left side, initial encounter for closed fracture; W10.1XXA Fall (on)(from) sidewalk curb, initial encounter; Y93.9 Activity, unspecified; Y92.410 Unspecified street and highway as the place of occurrence of the external cause; Y99.9 Unspecified external cause status
CPT/HCPCS: 71101; 73110; 99282; 99283

== ENCOUNTER 2023-06-15 08:21 | Outpatient (AMB) | payer BC, SELFPAY ==
--- NOTE | 2023-06-15 08:23 | A.OFFVIS_ITS ---
Intake Vital Signs 06/15/23 08:39 Height 6 ft 1 in Weight 228 lb BMI 30.1 Intake Visit Reasons: F/C Left wrist fracture 06/10/23 Intake Note: Jose sim 58 year old 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 male presents today for an ER follow up of his left wrist fracture, DOI 06/10/23. Patient reports that he tripped over his shoe on the curb causing him to fall, landing on his left side. [place] [facility] [place] where xrays were taken and he was placed in a splint as well as sling. Currently he has pain at the dorsal aspect of left wrist. Denies any numbness or tingling. Finds little to no relief with Tylenol and Motrin. Allergies No Known Allergies Allergy (Verified 06/15/23 08:44) Medication List - Last Reconciled 06/15/23 by WILLIAM Rajan-Kasia amoxicillin-pot clavulanate 875-125 mg 1 tab PO BID 10 days benzonatate 100 mg PO BID PRN blood pressure monitor (Blood Pressure Kit) As directed sildenafil (Viagra) 100 mg PO DAILY PRN HPI F/C Left wrist fracture 06/10/23 HPI Details 58-year-old 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 male who presents to the office today for an ER follow-up of left wrist injury after he tripped over his shoe on the curb causing him to fall on his left side, 06/10/23. He was seen at ED the same day where x-rays were performed and he was placed in a splint as well as a sling and referred to our office for ortho eval. He currently states he has pain and soreness at the dorsal aspect of his wrist. He denies any numbness or tingling. He finds minimal relief with Tylenol and Motrin. 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 Cognitive needs: No Hearing needs: No Vision needs: Yes Review of Systems Const All systems reviewed & are unremarkable except as noted in HPI and below Physical Exam Vital Signs: BMI result Body Mass Index 30.1 Const General: cooperative, healthy appearing, comfortable, no acute distress, well developed and alert Orientation/consciousness: patient oriented x3 HEENT Head: Yes normal to inspection, Yes normocephalic and Yes atraumatic Eyes General: appearance normal, both eyes and all related structures Resp Effort & Inspection: normal respiratory effort and able to speak in complete sentences Cardio Rate: regular rate Peripheral pulses: Peripheral pulses 2+ throughout GI Palpation (GI): Soft to palpation Skin Lesions: no lesions Rashes: no rashes Neuro General: patient oriented x3 Extrem Other: Left wrist: Skin intact. There is minimal swelling and over the distal radius with tenderness over the area of the radial styloid. He has discomfort with abduction of the thumb. There is no pain over the elbow, negative forearm squ eeze test. He has full range of motion of the elbow. He can fully extend all digits and make a closed fist. Pulses are present and she is neurovascularly intact. Office Procedures Casting/Splints 01369-[facility]/Wrist Cast Application Procedure code (CPT) selection complete Fracture Care Fracture Billing Code: Fracture Billing Code Results Reviewed Results Reviewed: Xrays were obtained in the office today and personally reviewed by me of the left wrist significant for a non displaced radial styloid fracture. No scaphoid fracture. Assessment & Plan Assessment & Plan (1) Nondisplaced fracture of left radial styloid process, initial encounter for closed fracture: Code(s): S52.515A - Nondisplaced fracture of left radial styloid process, initial encounter for closed fracture Plan I explained to the patient the extent of the injury and options available. We can treat this conservatively with a thumb spica cast as it is non displaced and does not extend into the articular surface. He would have to do no lifting more than a cell phone. This would mean no lifting, carrying, pushing, pulling, or repetitive use of the left upper extremity at work/home. I did explain to him that conservative treatment would likely be a cast for 4-6 weeks. If there is some displacement that occurs, we may need to discuss surgical intervention which could require pinning versus plate and screws. I also educated him on the risk factors of smoking and the effect that it can have on bone healing. He will remain out of work till his follow-up appointment in 4 weeks, with cast off and xrays, sooner if needed. Orders: Orders XR wrist LT min 3V Today M25.532 - Pain in left wrist Patient Instructions: Scribed for Lydia Mims PA-C, by Joe Bergman medical accounting clerk, on 06/15/2023 at 8:30 AM EST. I, Lydia Mims PA-C, have personally reviewed and agree with the information entered by the scribe. Coding Level of Care Code New Pt Level 3 (48926) Diagnoses Nondisplaced fracture of left radial styloid process, initial encounter for closed fracture S52.515A CPT Codes Casting - CPT: 14425-Vgnb/Wrist Cast Application ([id number]) Fracture Care - Fracture Billing Code: Fracture Billing Code ([id number])
[2023-06-15 08:39] VITALS: BMI 30.1
== END 2023-06-15 09:28 | disposition home or self-care (01) ==
PROVIDERS: PCP Internal Medicine; Visit Provider Physician Assistant
DX: S52.515A Nondisplaced fracture of left radial styloid process, initial encounter for closed fracture (principal); W01.0XXA Fall on same level from slipping, tripping and stumbling without subsequent striking against object, initial encounter
CPT/HCPCS: 25600; 99203

== ENCOUNTER 2023-06-15 09:13 | Outpatient (REF) | payer BC, SELFPAY ==
--- NOTE | ~2023-06-15 | XR_ITS ---
EXAMINATION: XR WRIST, LEFT CLINICAL INFORMATION: Pain. COMPARISON: Radiographs dated 06/10/2023. TECHNIQUE: PA, lateral, and oblique views of the left wrist. FINDINGS: Bony alignment and mineralization are normal. There is moderately severe osteoarthritic change of the first carpometacarpal joint. There is moderately severe osteoarthritic change of the first metacarpophalangeal joint, and mild osteoarthritic change is seen of the second through fourth metacarpophalangeal joints. There is mild osteoarthritic change of the third proximal interphalangeal joint of the fifth distal interphalangeal joint. There is no abnormal bone erosion. A mildly displaced fracture is seen of the radial styloid, in stable alignment. No new callus formation is seen. No focal soft tissue swelling, gas or foreign body is seen. XR/XR wrist LT min 3V IMPRESSION: 1. A mildly displaced fracture is redemonstrated of the radial styloid, in stable alignment. No new callus formation is seen. 2. There are multi-focal osteoarthritic changes of the left hand and wrist, as detailed.
== END 2023-06-15 09:14 | disposition home or self-care (01) ==
LOC: HO.HOSX 09:13
PROVIDERS: Visit Provider Physician Assistant
DX: S52.515A Nondisplaced fracture of left radial styloid process, initial encounter for closed fracture (principal)
CPT/HCPCS: 25600; 73110

== ENCOUNTER 2023-07-05 10:27 | Emergency (ER) | payer BC, SELFPAY ==
--- NOTE | ~2023-07-05 | XR_ITS ---
EXAMINATION: XR CHEST CLINICAL INFORMATION: Edema. COMPARISON: Chest and left ribs June 10, 2023. TECHNIQUE: 3 views of the chest. FINDINGS: Lung volumes are low. There is no gross pneumothorax. Stable cardiomediastinal silhouette. Evaluation of the cardiomediastinal silhouette is somewhat limited because of low lung volumes. Redemonstration of multiple old/healing left rib fractures. Mild degenerative changes in the thoracic spine. No significant pleural effusion. No gross focal consolidation to suggest pneumonia. XR/XR chest 2V IMPRESSION: 1. Redemonstration of multiple old/healing left rib fractures. 2. No gross focal consolidation to suggest pneumonia. No significant pleural effusion.
[2023-07-05 10:33] VITALS: BP 178/94; PULSE 76; RESP 20; TEMP 36.7; O2SAT 96; BMI 37.7
--- NOTE | 2023-07-05 11:04 | ED_ITS ---
HPI - General Adult General Chief complaint: General Medical Stated complaint: R/L Swollen Feet S/P Injury Time Seen by Provider: 07/05/23 11:04 Source: patient Mode of arrival: ambulatory Limitations: no limitations History of Present Illness HPI narrative: 58-year-old male with past medical history of osteoarthritis, hypercholesterolemia, vitamin-D deficiency, elevated blood pressure who presents to the emergency with complaint of bilateral swelling of lower extremities. Patient states that 3 weeks ago he experienced a fall when he injured his left wrist and broke several ribs on the left side. Since he has been less active and not working. About a week ago he noticed swelling on lower extremities. He denies any pain, redness, fever, chills, chest pain, shortness of breath or any other concerning symptoms. Patient states that he called his PCP office to schedule an appointment, however, was not able to be seen until November. Related Data Previous Rx's ?Medication ?Instructions ?Recorded blood pressure monitor (Blood #1 ea 02/16/22 Pressure Kit) sildenafil 100 mg tablet (Viagra) 100 mg PO DAILY PRN sexual 07/21/22 activity #14 tabs benzonatate 100 mg capsule 100 mg PO BID PRN cough #20 caps 03/14/23 amoxicillin 875 mg-potassium 1 tab PO BID 10 days #20 tabs 06/10/23 clavulanate 125 mg tablet furosemide 20 mg tablet (Lasix) 20 mg PO QAM 4 days #4 tabs 07/05/23 Allergies Allergy/AdvReac Type Severity Reaction Status Date / Time No Known Allergies Allergy Verified 07/05/23 10:36 Review of Systems 2 Review of Systems: Per HPI Yes all other systems are reviewed and are negative FOR[facility]LY [facility] Past Medical History Medical History No known health problems Family History Family History Maternal Grandfather Pancreatic cancer Social History Social History Housing: Condominium Alcohol intake: current Alcohol intake frequency: a few times a month Alcohol type: beer Patient Tobacco Use Status: Former Tobacco user Tobacco use type: Cigarette Years Smoked: 11 years old e-Cigarette/Vaping Use: Never Used Second Hand Smoke Exposure: No Advance Directives: No Do you have a plan to hurt others: No Plan Current occupational status: employed 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, 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 Cognitive needs: No Hearing needs: No Vision needs: Yes Physical Exam ED Vital Signs: Vital Signs - 24 hr 07/05/23 10:33 07/05/23 12:25 07/05/23 13:20 Temperature 98.0 F 98.7 F 98.7 F Pulse Rate 76 20 L 20 L Respiratory Rate 20 75 H 75 H Blood Pressure 178/94 H 157/85 H 157/85 H Pulse Oximetry 96 98 98 Oxygen Delivery Method Room Air Room Air Room Air BMI result Body Mass Index 37.7 Const General: comfortable, no acute distress and alert Nutritional Appearance: well nourished and overweight Orientation/consciousness: patient oriented x3 Limitations: no limitations HENMT Head: Yes normal to inspection, Yes normocephalic and Yes atraumatic Mouth: Normal oral and palatal mucosa present and moist mucous membranes Throat: Yes posterior oropharynx normal Neck Neck: Yes normal visual inspection, Yes full ROM and Yes no lymphadenopathy Resp Effort & Inspection: normal respiratory effort and able to speak in complete sentences Auscultation: clear to auscultation bilaterally Cardio Jugular venous distension: no JVD Rate: regular rate Rhythm: regular rhythm Heart sounds: S1 normal heart sound present and S2 normal heart sound present Peripheral pulses: Peripheral pulses 2+ throughout GI Inspection: Yes normal to inspection Palpation (GI): Soft to palpation and Other GI palpation findings present (non tender, non distended) Auscultation: normal bowel sounds Skin Other: Pin, warm, dry; no rash Neuro General: patient oriented x3 and gait normal Cranial nerves: Yes CN's II-XII intact bilaterally Cognition (Neuro): normal cognition Motor exam (neuro): 5/5 motor strength present throughout Extrem Other: 3+ pitting edema of bilateral lower extremities extending to mid calf; no open wounds, eyrythema, increased warmth or discharge. Distal vascular and motor- sensory functions are intact. Normal distal pulses. General: Yes full ROM, Yes capillary refill normal, Yes no calf tenderness and Yes other Medical Decision Making Medical Decision Making MDM Narrative: 58-year-old male with past medical history of osteoarthritis, hypercholesterolemia, vitamin-D deficiency, elevated blood pressure who presents to the emergency with complaint of bilateral swelling of lower extremities. HPI and physical exam as above. Upon presentation patient is hemodynamically stable, alert, oriented, with reassuring vital signs. He is not ill or toxic appearing, no acute distress. Laboratory results are notable for mild hyponatremia but otherwise reassuring. Liver function is elevated from baseline. BNP is WNL Xray showed: Lung volumes are low. There is no gross pneumothorax. Stable cardiomediastinal silhouette. Evaluation of the cardiomediastinal silhouette is somewhat limited because of low lung volumes. Redemonstration of multiple old/healing left rib fractures. Mild degenerative changes in the thoracic spine. No significant pleural effusion. No gross focal consolidation to suggest pneumonia. Given clinical presentation and work up results edema is likely depended; patient has no symptoms of chest pain, shortness of breath, orthopnea; will provide prescription for low dose lasix X4 days and advise to follow up closely with PCP for repeat blood work and further management. Lab Data 07/05/23 11:38 07/05/23 11:38 Labs: Lab Results 07/05/23 Range/Units 11:38 WBC 5.7 (4.8-10.8) X10*3/uL RBC 3.60 L (4.60-5.80) X10*6/uL Hgb 12.2 L (14.0-18.0) g/dl Hct 35.1 L (42.0-52.0) % MCV 97.5 (80.0-98.0) fL MCH 33.9 H (27.0-33.0) pg MCHC 34.8 (31.0-36.0) g/dl RDW 13.2 (11.0-16.0) % Plt Count 218 (160-400) X10*3/uL MPV 9.1 L (9.4-12.4) fL Immature Gran % (Auto) 0.5 H (0.0-0.4) % Neut % (Auto) 67.9 (45-73) % Lymph % (Auto) 16.8 L (20-40) % [place] % (Auto) 13.0 H (2-11) % Eos % (Auto) 0.9 (0-4) % Baso % (Auto) 0.9 (0-2) % Lymph # (Auto) 1.0 L (1.2-4.9) X10*3/uL [place] # (Auto) 0.7 (0.1-1.2) X10*3/uL Eos # (Auto) 0.1 (0.0-0.4) X10*3/uL Baso # (Auto) 0.1 (0.0-0.2) X10*3/uL Abs Immat Gran (auto) 0.03 (0.00-0.03) X10*3/uL Absolute Neuts (auto) 3.9 (2.0-8.3) x10*3/uL Absolute Nucleated RBC 0.000 (0.0-0.012) X10*3/uL Nucleated RBC % (auto) 0.0 (0.0-0.2) /100WBC Sodium 133 L (135-145) mmol/L Potassium 4.1 (3.3-5.1) mmol/L Chloride 97 (96-108) mmol/L Carbon Dioxide 26 (22-29) mmol/L Anion Gap 14 (12-20) BUN 5 L (9-16) mg/dL Creatinine 0.61 (0.5-1.4) mg/dL Estim Creat Clear Calc 176.6 Estimated GFR > 60 Random Glucose 97 (60-115) mg/dL Calcium 8.9 (8.4-10.2) mg/dL Total Bilirubin 0.5 (0.0-1.0) mg/dL Direct Bilirubin 0.2 (0.0-0.5) mg/dL AST 66 H (5-37) U/L ALT 44 H (0-40) U/L Alkaline Phosphatase 141 H (39-117) U/L B-Natriuretic Peptide 26 (<100) pg/mL Total Protein 7.8 (6.5-8.0) g/dL Albumin 3.8 (3.5-5.0) g/dL Lipase 14 (8-78) U/L Discharge Plan Discharge Clinical Impression: Leg swelling Patient Disposition: Home, Self-Care Instructions: Leg Edema (ED) Additional Instructions: Your laboratory results today were all reassuring and a chest x-ray showed no acute abnormalities. You again prescription for Lasix, a diuretic to take for next couple of days. Keep your legs elevated as much as possible and decrease salt consumption. Follow-up with your primary care doctor for observation further management within 3-5 days. If you develop any new or concerning symptoms please return to emergency department for re-evaluation. Prescriptions: New furosemide [Lasix] 20 mg tablet 20 mg PO QAM 4 Days Qty: 4 0RF No Action amoxicillin-pot clavulanate 875-125 mg tablet 1 tab PO BID 10 Days Qty: 20 0RF (DME) blood pressure monitor [Blood Pressure Kit] Kit See Rx Instructions .ROUTE .MEDSUPPLY Qty: 1 0RF Rx Instructions: As directed sildenafil [Viagra] 100 mg tablet 100 mg PO DAILY PRN (Reason: sexual activity) Qty: 14 3RF Rx Instructions: administer 30 minutes to 4 hours before activity benzonatate 100 mg capsule 100 mg PO BID PRN (Reason: cough) Qty: 20 0RF Referrals: Po,Joycelyn Mckinley MD [Primary Care Provider] - Interventions: ED Discharge Assessment Last Done: 07/05/23 13:20 Discharge Date/Time: 07/05/23 13:24 Print Language: Malawian
[2023-07-05 11:46] LABS: MANUAL DIFF FLAG NO
[2023-07-05 11:51] LABS: Basophils Absolute Auto 0.1 X10*3/uL (0.0-0.2); Basophils Percent Auto 0.9 % (0-2); Eosinophils Absolute Auto 0.1 X10*3/uL (0.0-0.4); Eosinophils Percent Auto 0.9 % (0-4); Hematocrit 35.1 % (42.0-52.0); Hemoglobin 12.2 g/dl (14.0-18.0); Imm Gran Abs Auto 0.03 X10*3/uL (0.00-0.03); Imm Gran Pct Auto 0.5 % (0.0-0.4); Lymphocytes Percent Auto 16.8 % (20-40); Mean Corpuscular HGB Conc 34.8 g/dl (31.0-36.0); Mean Corpuscular Hemoglobin 33.9 pg (27.0-33.0); Mean Corpuscular Volume 97.5 fL (80.0-98.0); Mean Platelet Volume 9.1 fL (9.4-12.4); Monocytes Absolute Auto 0.7 X10*3/uL (0.1-1.2); Neutrophils Absolute Auto 3.9 x10*3/uL (2.0-8.3); Neutrophils Percent Auto 67.9 % (45-73); Platelet Count 218 X10*3/uL (160-400); Red Cell Distribution Width 13.2 % (11.0-16.0); White Blood Count 5.7 X10*3/uL (4.8-10.8)
[2023-07-05 12:03] LABS: Alanine Aminotransferase 44 U/L (0-40); Albumin Level 3.8 g/dL (3.5-5.0); Alkaline Phosphatase 141 U/L (39-117); Anion Gap 14 (12-20); Aspartate Amino Transferase 66 U/L (5-37); Bilirubin Direct 0.2 mg/dL (0.0-0.5); Bilirubin Total 0.5 mg/dL (0.0-1.0); Blood Urea Nitrogen 5 mg/dL (9-16); Calcium 8.9 mg/dL (8.4-10.2); Carbon Dioxide 26 mmol/L (22-29); Chloride 97 mmol/L (96-108); Creatinine Clr Calc Pharmacy 176.6; Estimated Glomerular Filt Rate > 60; Glucose Random 97 mg/dL (60-115); Lipase 14 U/L (8-78); Potassium 4.1 mmol/L (3.3-5.1); Sodium 133 mmol/L (135-145); Total Protein 7.8 g/dL (6.5-8.0)
[2023-07-05 12:07] LABS: B Type Natriuretic Peptide 26 pg/mL (<100)
[2023-07-05 12:25] VITALS: BP 157/85; PULSE 20; RESP 75; TEMP 37.1; O2SAT 98
[2023-07-05 13:20] VITALS: BP 157/85; PULSE 20; RESP 75; TEMP 37.1; O2SAT 98
== END 2023-07-05 13:24 | disposition home or self-care (01) ==
PROVIDERS: Emergency Provider Emergency Medicine; PCP Internal Medicine
DX: M79.89 Other specified soft tissue disorders (principal); S22.42XD Multiple fractures of ribs, left side, subsequent encounter for fracture with routine healing; X58.XXXD Exposure to other specified factors, subsequent encounter
CPT/HCPCS: 36415; 71046; 80048; 80076; 83690; 83880; 85025; 99283

== ENCOUNTER 2023-07-13 09:34 | Outpatient (AMB) | payer BC, SELFPAY ==
--- NOTE | 2023-07-13 09:49 | MHC.OFFVIS ---
Vital Signs 07/13/23 09:51 Height 6 ft Weight 278 lb BMI 37.7 Handedness Right Intake Visit Reasons: OV-Left wrist fracture 06/10/23-w/xray cast off Intake Note: Jose a 58 year old 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 male presents today for a follow up of his left wrist fracture, DOI 06/10/23. Cast was removed and x rays were updated. Patient reports having stiffness being out of the cast. He states that his pain is a 5/10 on the pain scale. Allergies No Known Allergies Allergy (Verified 07/13/23 09:51) HPI HPI OV-Left wrist fracture 06/10/23-w/xray cast off: Details: [age] year old gentleman returns to the office today for follow-up left radial styloid fracture date of injury 06/10/2023. He states he has some tenderness along the base of the thumb. He also has difficulty bringing his thumb to his small finger. No other concerns today. 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 Cognitive needs: No Hearing needs: No Vision needs: Yes Review of Systems Const All systems reviewed & are unremarkable except as noted in HPI and below Physical Exam Vital Signs: BMI result Body Mass Index 37.7 Const General: cooperative, healthy appearing, comfortable, no acute distress, well developed and alert Orientation/consciousness: patient oriented x3 HEENT Head: Yes normal to inspection, Yes normocephalic and Yes atraumatic Eyes General: appearance normal, both eyes and all related structures Resp Effort & Inspection: normal respiratory effort and able to speak in complete sentences Cardio Rate: regular rate Peripheral pulses: Peripheral pulses 2+ throughout GI Palpation (GI): Soft to palpation Skin Lesions: no lesions Rashes: no rashes Neuro General: patient oriented x3 Extrem Other: Left wrist: Skin intact. No swelling and over the distal radius with no tenderness over the area of the radial styloid. He has discomfort with abduction of the thumb and limited ability to perform opposition. There is no pain over the elbow, negative forearm squeeze test. He has full range of motion of the elbow. He can fully extend all digits and make a closed fist. Pulses are present and she is neurovascularly intact. Results Reviewed Results Reviewed: Xrays were obtained in the office today and personally reviewed by me of the left wrist significant for a non displaced radial styloid fracture with interval healing. No scaphoid fracture. Assessment & Plan Assessment & Plan (1) Nondisplaced fracture of left radial styloid process, initial encounter for closed fracture: Code(s): S52.515A - Nondisplaced fracture of left radial styloid process, initial encounter for closed fracture Category: Medical Plan: He was transition to a Velcro wrist splint which he will wear with activities only for the next 3 weeks. 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 He will return to work on August 01 without restrictions and he will contact our office if there is any worsening symptoms or concerns otherwise follow-up as needed. Orders: Orders XR wrist LT min 3V Today M25.532 - Pain in left wrist OT Evaluation and Treatment Today S52.515A - Nondisplaced fracture of left radial styloid process, initial encounter for closed fracture Coding Level of Care Code Global (33730) Diagnoses Nondisplaced fracture of left radial styloid process, initial encounter for closed fracture S52.515A
[2023-07-13 09:51] VITALS: BMI 37.7
== END 2023-07-13 10:11 | disposition home or self-care (01) ==
PROVIDERS: PCP Internal Medicine; Visit Provider Physician Assistant
DX: S52.515A Nondisplaced fracture of left radial styloid process, initial encounter for closed fracture (principal)
CPT/HCPCS: 99024

== ENCOUNTER 2023-07-13 15:58 | Outpatient (REF) | payer BC, SELFPAY ==
--- NOTE | ~2023-07-13 | XR_ITS ---
EXAMINATION: XR WRIST, LEFT CLINICAL INFORMATION: Pain in left wrist Cast off COMPARISON: Left wrist 06/15/2023 TECHNIQUE: PA, lateral, and oblique views of the left wrist. FINDINGS: Bone alignment and mineralization are normal. There is moderately severe osteophytic change of the first carpometacarpal joint. There is moderately severe osteophytic change of the first metacarpophalangeal joint and mild osteoarthritic changes seen of the second through fourth metacarpophalangeal joints. There is no abnormal bone erosion. Healing fracture is seen in the radial styloid, in stable alignment. Mild associated soft tissue swelling is noted. XR/XR wrist LT min 3V IMPRESSION: 1. Healing fracture of the radial styloid, in stable alignment. 2. Multifocal osteoarthritic changes, as described above.
== END 2023-07-13 15:59 | disposition home or self-care (01) ==
LOC: HO.HOSX 15:58
PROVIDERS: Visit Provider Physician Assistant
DX: S52.515D Nondisplaced fracture of left radial styloid process, subsequent encounter for closed fracture with routine healing (principal)
CPT/HCPCS: 73110

== ENCOUNTER 2023-07-25 06:18 | Emergency (ER) | payer BC, SELFPAY ==
--- NOTE | ~2023-07-25 | US_ITS ---
EXAMINATION: US VENOUS ULTRASOUND WITH DOPPLER LOWER EXTREMITY, BILATERAL CLINICAL INFORMATION: Bilateral lower extremity edema and swelling COMPARISON: None available. TECHNIQUE: Ultrasound of the deep veins is performed from the hip to the calf with compression sonography and color and pulse Doppler assessment. Spectral analysis with color-flow imaging is performed. FINDINGS: RIGHT: There is normal venous compression and respiratory variation and augmented flow. The visualized common femoral vein, superficial femoral vein, profunda femoral vein, popliteal vein, and the trifurcation region shows no evidence of deep venous thrombosis. Peroneal vein could not be visualized secondary to edema. A Verduzco's cyst is noted in the right popliteal fossa measuring 2.8 x 0.8 x 3.5 cm. LEFT: There is normal venous compression and respiratory variation and augmented flow. The visualized common femoral vein, superficial femoral vein, profunda femoral vein, popliteal vein, and the trifurcation region shows no evidence of deep venous thrombosis. Peroneal vein could not be visualized secondary to edema. There is no significant popliteal fossa cyst. If the patient's symptoms persist, followup ultrasound in 5 days 7 days might be of value to exclude proximal propagation from a non-visualized calf vein. US/US venous duplex LE BI IMPRESSION: No DVT demonstrated in either lower extremity.
[2023-07-25 06:34] VITALS: BP 159/89; PULSE 81; RESP 18; TEMP 36.6; O2SAT 95; BMI 30.3
[2023-07-25 07:08] LABS: MANUAL DIFF FLAG NO
[2023-07-25 07:09] LABS: Basophils Absolute Auto 0.1 X10*3/uL (0.0-0.2); Basophils Percent Auto 0.8 % (0-2); Eosinophils Absolute Auto 0.1 X10*3/uL (0.0-0.4); Eosinophils Percent Auto 1.2 % (0-4); Hematocrit 36.4 % (42.0-52.0); Hemoglobin 12.1 g/dl (14.0-18.0); Imm Gran Abs Auto 0.02 X10*3/uL (0.00-0.03); Imm Gran Pct Auto 0.3 % (0.0-0.4); Lymphocytes Percent Auto 17.3 % (20-40); Mean Corpuscular HGB Conc 33.2 g/dl (31.0-36.0); Mean Corpuscular Hemoglobin 32.5 pg (27.0-33.0); Mean Corpuscular Volume 97.8 fL (80.0-98.0); Mean Platelet Volume 8.9 fL (9.4-12.4); Monocytes Absolute Auto 0.9 X10*3/uL (0.1-1.2); Monocytes Percent Auto 15.6 % (2-11); Neutrophils Absolute Auto 3.8 x10*3/uL (2.0-8.3); Neutrophils Percent Auto 64.8 % (45-73); Platelet Count 213 X10*3/uL (160-400); Red Blood Count 3.72 X10*6/uL (4.60-5.80); Red Cell Distribution Width 13.2 % (11.0-16.0); White Blood Count 5.9 X10*3/uL (4.8-10.8)
[2023-07-25 07:30] LABS: Alanine Aminotransferase 32 U/L (0-40); Albumin Level 3.8 g/dL (3.5-5.0); Alkaline Phosphatase 142 U/L (39-117); Anion Gap 17 (12-20); Aspartate Amino Transferase 56 U/L (5-37); Bilirubin Total 0.4 mg/dL (0.0-1.0); Blood Urea Nitrogen 7 mg/dL (9-16); Calcium 8.9 mg/dL (8.4-10.2); Carbon Dioxide 25 mmol/L (22-29); Chloride 99 mmol/L (96-108); Creatinine Clr Calc Pharmacy 134.4; Estimated Glomerular Filt Rate > 60; Glucose Random 95 mg/dL (60-115); Potassium 3.8 mmol/L (3.3-5.1); Sodium 137 mmol/L (135-145); Total Protein 7.6 g/dL (6.5-8.0)
--- NOTE | 2023-07-25 07:31 | ED_ITS ---
HPI - Extremity Problem General Chief complaint: Extremity Problem Stated complaint: lower legs swollen after 2 weeks Time Seen by Provider: 07/25/23 07:30 Source: patient Mode of arrival: ambulatory Limitations: no limitations History of Present Illness ED Provider: Cate Najera PA-C HPI Narrative: 58-year-old male with a history of anemia, obesity, osteoarthritis, fall with fracture of left wrist and left ribs, presents with complaints of persistent bilateral lower extremity edema for approximately 3 weeks. Patient states the swelling began about one week after falling on his left side, sustaining multiple fractures. He was initially seen in the ED for bilateral lower extremity swelling on 07/04 and was prescribed 4 days of Lasix 20 mg with no improvement. Patient states he called PCP who prescribed him 4 more days of Lasix 20 mg, with still no improvement after course. States it is not worsening, it has stayed about the same. He describes associated mild burning sensation and tightness of bilateral lower extremities, but denies pain. He endorses associated shortness of breath with rib pain upon breathing. He denies chest pain. He states he cannot get in to see his PCP until November. He has not yet tried compression stockings to alleviate edema. MD Complaint: extremity swelling Onset (ago): week(s) Pain Consistency: constant Location: lower extremity (Bilateral lower extremity) Quality: burning Associated symptoms: denies other symptoms and shortness of breath Related Data Previous Rx's ?Medication ?Instructions ?Recorded blood pressure monitor (Blood #1 ea 02/16/22 Pressure Kit) sildenafil 100 mg tablet (Viagra) 100 mg PO DAILY PRN sexual 07/21/22 activity #14 tabs benzonatate 100 mg capsule 100 mg PO BID PRN cough #20 caps 03/14/23 amoxicillin 875 mg-potassium 1 tab PO BID 10 days #20 tabs 06/10/23 clavulanate 125 mg tablet furosemide 20 mg tablet (Lasix) 20 mg PO QAM 4 days #4 tabs 07/08/23 Allergies Allergy/AdvReac Type Severity Reaction Status Date / Time No Known Allergies Allergy Verified 07/25/23 06:35 Review of Systems 2 Review of Systems: Yes all other systems are reviewed and are negative PMFSH Past Medical History Medical History No known health problems Family History Family History Maternal Grandfather Pancreatic cancer Social History Social History Housing: Condominium Alcohol intake: current Alcohol intake frequency: a few times a month Alcohol type: beer Patient Tobacco Use Status: Former Tobacco user Tobacco use type: Cigarette Years Smoked: 11 years old e-Cigarette/Vaping Use: Never Used Second Hand Smoke Exposure: No Advance Directives: No Advance Directives Information Provided: No Current occupational status: employed 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 Oriented X3. No acute distress. Head: normocephalic, atraumatic. Eyes: Pupils equal, round and reactive to light. ENT: Pharynx normal. Neck: Normal inspection. Neck supple. CVS: Normal heart rate and rhythm. Pulses normal. Respiratory: No respiratory distress. Breath sounds normal. Abdomen: Soft. Tenderness of left rib region. Skin: Skin warm and dry. Normal skin color. Normal skin turgor. No rashes. Extremities: Bilateral lower extremity 3+ pitting edema of the lower legs with hyperpigmentation of the distal legs. No erythema or increased warmth. Pulses intact. Neuro/psych: Oriented X 3. No motor deficit. No sensory deficit. Normal speech and cognition. Medical Decision Making Medical Decision Making MDM Narrative: 58-year-old male with a history of anemia, obesity, osteoarthritis, fall with left wrist fracture and left rib fracture, presents with complaints of bilateral lower extremity swelling. Patient states the swelling began about 3 weeks ago. He has reportedly been on 8 days of Lasix 20 mg with no improvement. Last dose of Lasix was approximately 2 weeks ago. HPI and physical exam as noted above. Laboratory results are unremarkable from baseline. Venous duplex U/S showed no DVT in either lower extremities. Most likely etiology is venous insufficiency at this time. Patient did not benefit with Lasix. Will start compression stockings, elevation and refer him to vascular and Cardiology office for further evaluation and treatment. Will hold off on prescribing any further diuretics at this time. Patient is in agreement with plan Differential Diagnosis Differential Diagnoses: The differential diagnosis associated with the presentation includes Lower extremity edema, acute CHF exacerbation, DVT, venous insufficiency, lymphedema Admission/Observation Consideration of admission/observation: Escalation of care including admission/observation considered Lab Data MDM Lab Attestation statement: I reviewed the patient's lab results. Laboratory results are unremarkable from baseline. 07/25/23 07:02 07/25/23 07:02 Labs: Lab Results 07/25/23 Range/Units 07:02 WBC 5.9 (4.8-10.8) X10*3/uL RBC 3.72 L (4.60-5.80) X10*6/uL Hgb 12.1 L (14.0-18.0) g/dl Hct 36.4 L (42.0-52.0) % MCV 97.8 (80.0-98.0) fL MCH 32.5 (27.0-33.0) pg MCHC 33.2 (31.0-36.0) g/dl RDW 13.2 (11.0-16.0) % Plt Count 213 (160-400) X10*3/uL MPV 8.9 L (9.4-12.4) fL Immature Gran % (Auto) 0.3 (0.0-0.4) % Neut % (Auto) 64.8 (45-73) % Lymph % (Auto) 17.3 L (20-40) % Maury % (Auto) 15.6 H (2-11) % Eos % (Auto) 1.2 (0-4) % Baso % (Auto) 0.8 (0-2) % Lymph # (Auto) 1.0 L (1.2-4.9) X10*3/uL Maury # (Auto) 0.9 (0.1-1.2) X10*3/uL Eos # (Auto) 0.1 (0.0-0.4) X10*3/uL Baso # (Auto) 0.1 (0.0-0.2) X10*3/uL Abs Immat Gran (auto) 0.02 (0.00-0.03) X10*3/uL Absolute Neuts (auto) 3.8 (2.0-8.3) x10*3/uL Absolute Nucleated RBC 0.000 (0.0-0.012) X10*3/uL Nucleated RBC % (auto) 0.0 (0.0-0.2) /100WBC Sodium 137 (135-145) mmol/L Potassium 3.8 (3.3-5.1) mmol/L Chloride 99 (96-108) mmol/L Carbon Dioxide 25 (22-29) mmol/L Anion Gap 17 (12-20) BUN 7 L (9-16) mg/dL Creatinine 0.72 (0.5-1.4) mg/dL Estim Creat Clear Calc 134.4 Estimated GFR > 60 Random Glucose 95 (60-115) mg/dL Calcium 8.9 (8.4-10.2) mg/dL Total Bilirubin 0.4 (0.0-1.0) mg/dL AST 56 H (5-37) U/L ALT 32 (0-40) U/L Alkaline Phosphatase 142 H (39-117) U/L B-Natriuretic Peptide 56 (<100) pg/mL Total Protein 7.6 (6.5-8.0) g/dL Albumin 3.8 (3.5-5.0) g/dL Independent Interpretation I performed an independent interpretation of an: Ultrasound Interpretation: No DVT in either lower extremity. Radiology Impression Discussion of test interpretation with radiology: I have reviewed the radiologist's reading. Radiologist Impression: EXAMINATION: US VENOUS ULTRASOUND WITH DOPPLER LOWER EXTREMITY, BILATERAL CLINICAL INFORMATION: Bilateral lower extremity edema and swelling COMPARISON: None available. TECHNIQUE: Ultrasound of the deep veins is performed from the hip to the calf with compression sonography and color and pulse Doppler assessment. Spectral analysis with color-flow imaging is performed. FINDINGS: RIGHT: There is normal venous compression and respiratory variation and augmented flow. The visualized common femoral vein, superficial femoral vein, profunda femoral vein, popliteal vein, and the trifurcation region shows no evidence of deep venous thrombosis. Peroneal vein could not be visualized secondary to edema. A Verduzco's cyst is noted in the right popliteal fossa measuring 2.8 x 0.8 x 3.5 cm. LEFT: There is normal venous compression and respiratory variation and augmented flow. The visualized common femoral vein, superficial femoral vein, profunda femoral vein, popliteal vein, and the trifurcation region shows no evidence of deep venous thrombosis. Peroneal vein could not be visualized secondary to edema. There is no significant popliteal fossa cyst. If the patient's symptoms persist, followup ultrasound in 5 days 7 days might be of value to exclude proximal propagation from a non-visualized calf vein. US/US venous duplex LE BI IMPRESSION: No DVT demonstrated in either lower extremity. External Record Review External record reviewed: Inpatient record, Office record, Outpatient record and Prior outpatient labs Tests considered The following testing was considered but not selected: Chest x-ray was considered, but not selected at this time due to low suspicion of pneumonia or effusion. Prescription Management I considered prescription management with: Pain Medication and Other (Diuretic) Chronic Conditions Patient?s care impacted by: Other (Obesity) Critical Care Time Critical Care Time Critical Care Time: No Discharge Plan Discharge Clinical Impression: Lower extremity edema Patient Disposition: Home, Self-Care Instructions: Leg Edema (ED) Additional Instructions: Your ultrasound did not show any evidence of blood clot in your legs. Your heart failure markers was negative. The most likely cause of your leg swelling is venous insufficiency. Recommend elevating her legs whenever possible. Recommend wearing compression stockings to help the blood flow improved. You can try getting these at any medical supply store, or an online website. They make them knee-high or thigh-high. Follow-up with your primary care doctor. Recommend following up with vascular and Cardiology Services for further evaluation and treatment. Name and numbers below, call for an appointment. If you develop new or worsening symptoms call 911 or come back to the ER for further evaluation. Prescriptions: No Action furosemide [Lasix] 20 mg tablet 20 mg PO QAM 4 Days Qty: 4 0RF amoxicillin-pot clavulanate 875-125 mg tablet 1 tab PO BID 10 Days Qty: 20 0RF (DME) blood pressure monitor [Blood Pressure Kit] Kit See Rx Instructions .ROUTE .MEDSUPPLY Qty: 1 0RF Rx Instructions: As directed sildenafil [Viagra] 100 mg tablet 100 mg PO DAILY PRN (Reason: sexual activity) Qty: 14 3RF Rx Instructions: administer 30 minutes to 4 hours before activity benzonatate 100 mg capsule 100 mg PO BID PRN (Reason: cough) Qty: 20 0RF Referrals: [facility] Group] [facility] [Provider Group] Joycelyn Blankenship MD [Primary Care Provider] - Interventions: ED Discharge Assessment Last Done: 07/25/23 09:12 Discharge Date/Time: 07/25/23 09:20 Print Language: Algerian
[2023-07-25 07:36] LABS: B Type Natriuretic Peptide 56 pg/mL (<100)
--- NOTE | 2023-07-25 09:08 | PC.NURSE ---
PT WAS EVALUATED AND RECOMMENDATION WERE MADE FOR DISCHARGE. US AND LABS WERE NEGATIVE. HE AGREES WITH DISCHARGE FOLLOW UP AND PLAN
[2023-07-25 09:12] VITALS: BP 159/89; PULSE 81; RESP 18; TEMP 36.6; O2SAT 98
== END 2023-07-25 09:20 | disposition home or self-care (01) ==
PROVIDERS: Emergency Provider Emergency Medicine; PCP Internal Medicine
DX: R60.0 Localized edema (principal); Z87.891 Personal history of nicotine dependence; Z91.81 History of falling; E78.00 Pure hypercholesterolemia, unspecified; K76.0 Fatty (change of) liver, not elsewhere classified
CPT/HCPCS: 36415; 80053; 83880; 85025; 93970; 99282; 99284

== ENCOUNTER 2023-07-29 13:44 | Outpatient (AMB) | payer BC, SELFPAY ==
[2023-07-29 13:50] VITALS: BP 150/82; PULSE 89; O2SAT 94; BMI 37.6
--- NOTE | 2023-07-29 13:50 | MHC.PC.OV ---
Vital Signs 07/29/23 13:50 Height 6 ft Weight 277 lb 0.4 oz BMI 37.6 BP 150/82 H Blood Pressure Location Lt brachial Position Sitting Pulse 89 Pulse Source Pulse Oximeter Pulse Oximetry (%) 94 Oxygen Delivery Method Room Air Intake Visit Reasons: ankle & foot swelling Allergies No Known Allergies Allergy (Verified 07/29/23 13:50) Tobacco use date assessed: 07/29/23 Dental Screening Dental Screen Date: 07/29/23 HPI ankle & foot swelling HPI Details 58-year-old obese male with a history of fatty liver vitamin B12 deficiency and hypercholesterolemia patient was last seen in 07/24/2022. Patient had a fall in June sustaining wrist fracture as well as rib fractures Review of the notes was in the emergency room 07/25/2023. Complains of bilateral lower extremity swelling 3 weeks after falling on his left side having fractures of the left wrist and left ribs prescription for Lasix given ultrasound done with no DVT. X-rays of the wrist reveals healing fracture of the radial styloid which was advised to have Velcro wrist splint and occupational therapy. Patient is here for the lower extremity swelling. 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 Cognitive needs: No Hearing needs: No Vision needs: Yes Questionnaire Thrive Questionnaire Date Thrive assessed: 07/29/23 I am a: Patient What is your living situation today?: I have a steady place to live Within the past 12 months, did the food you bought not last and you didn't have the money to get more?: Never true Within the past 12 months, did you worry whether your food would run out before you got money to buy more?: Never true Do you have trouble paying for medicines?: No Do you have trouble getting transportation to medical appointments?: No Do you have trouble paying your heating and electricity bill?: No Do you have trouble taking care of your child, family member or friend?: No Do you have trouble with day-to-day activities such as bathing, preparing meals, shopping, managing finances, etc.?: No Are you currently unemployed and looking for a job?: No Are you interested in more education?: No Please select the resources that you would like help with: None Currently or been in a relationship where the following occur: no concerns reported THRIVE Score: 0 AUDIT C Alcohol Use Questionnaire (AUDIT-C) 1. How often do you have a drink containing alcohol?: 4 or more times a week 2. How many drinks containing alcohol do you have on a typical day when you are drinking?: 3 or 4 3. How often do you have six or more drinks on one occasion?: Less than monthly Total Score: 6 NEEL-7 AMB Questionnaire NEEL-7 Date NEEL - 7 assessed: 07/21/22 Source: Developed by Drs. Jesus Russell, Nichole Patino, Francois Espinoza and colleagues, with an educational gian from [employer]. Physical exam (Primary Care) Vital Signs: Last Vital Signs Pulse 89 07/29/23 13:50 BP 150/82 H 07/29/23 13:50 Pulse Ox 94 07/29/23 13:50 Oxygen Delivery Method Room Air 07/29/23 13:50 BMI result Body Mass Index 37.6 Tobacco/Smoking Status: Tobacco use Status Tobacco use date assessed 07/29/23 07/29/23 13:51 Patient Tobacco Use Status Former Tobacco user 07/29/23 13:51 Tobacco use type Cigarette 07/29/23 13:51 e-Cigarette/Vaping Use Never Used 07/29/23 13:51 Thrive Assessment: Date of Thrive Assessment Date Thrive assessed 07/29/23 07/29/23 13:51 Currently or been in a relationship where the following occur: no concerns reported Const General: alert; No acute distress Eyes Conjunctivae: conjunctivae normal Resp Auscultation: clear to auscultation bilaterally Cardio Rate: regular rate Rhythm: regular rhythm GI Inspection: Yes normal to inspection Assessment and Plan Assessment & Plan (1) Fall: Code(s): W19.XXXA - Unspecified fall, initial encounter (2) Nondisplaced fracture of left radial styloid process, initial encounter for closed fracture: Code(s): S52.515A - Nondisplaced fracture of left radial styloid process, initial encounter for closed fracture Plan: Patient has followed up with orthopedics nondisplaced velcro splint requested and occupational therapy (3) Fracture of rib of left side: Code(s): S22.32XA - Fracture of one rib, left side, initial encounter for closed fracture Plan: Incentive spirometer given and was told to breathe deep and hold for a few sec to prevent pneumonia (4) Peripheral vascular disease: Code(s): I73.9 - Peripheral vascular disease, unspecified Plan: When sitting down elevate the legs, exercise, and support stockings (5) Fatty liver: Comment: 2005 Code(s): K76.0 - Fatty (change of) liver, not elsewhere classified Plan: Concern that the liver function elevation has been present since 2005. Will follow-up on liver ultrasound to check for cirrhosis. Orders: Orders US abdomen complete Today K76.0 - Fatty (change of) liver, not elsewhere classified, R79.89 - Other specified abnormal findings of blood chemistry Medications: New [incentive spirometry] As directed 1 ea 0RF S22.32XA - Fracture of one rib, left side, initial encounter for closed fracture comp.stocking,thigh,long,large As directed 20-30 mm HG 12 ea 0RF I73.9 - Peripheral vascular disease, unspecified Coding Level of Care Code Est Pt Level 4 (34275) Diagnoses Fall W19.XXXA Nondisplaced fracture of left radial styloid process, initial encounter for closed fracture S52.515A Fracture of rib of left side S22.32XA Peripheral vascular disease I73.9 Fatty liver K76.0
== END 2023-07-29 15:02 | disposition home or self-care (01) ==
PROVIDERS: PCP Internal Medicine; Visit Provider Internal Medicine
DX: S52.515A Nondisplaced fracture of left radial styloid process, initial encounter for closed fracture (principal); S22.32XA Fracture of one rib, left side, initial encounter for closed fracture; W19.XXXA Unspecified fall, initial encounter; I73.9 Peripheral vascular disease, unspecified; K76.0 Fatty (change of) liver, not elsewhere classified
CPT/HCPCS: 99214

== ENCOUNTER 2023-07-31 14:52 | Emergency (ER) | payer BC, SELFPAY ==
--- NOTE | ~2023-07-31 | XR_ITS ---
EXAMINATION: XR RIBS, LEFT CLINICAL INFORMATION: Pain COMPARISON: 06/10/2023 TECHNIQUE: 5 views FINDINGS: Lungs are clear. No consolidation, pneumothorax, or pleural effusion. The cardiomediastinal silhouette and pulmonary vasculature are normal. Osseous structures are again notable multiple left-sided rib fractures. There appears to be new fracture since the recent previous with more displacement of the left sixth seventh and eighth rib fractures laterally. XR/XR ribs LT min 3V w CXR1V IMPRESSION: Multiple left-sided rib fractures as above. This appears to be a new or more recent fractures superimposed on older fractures. No pneumothorax or pleural effusion.
--- NOTE | ~2023-07-31 | CT_ITS ---
EXAMINATION: CT CHEST WITHOUT CONTRAST CLINICAL INFORMATION: Fall. Pain. COMPARISON: None available. TECHNIQUE: Multidetector volumetric CT imaging of the chest was done. Axial MIP volume rendering provided. Sagittal and coronal reformatted images were obtained. This CT examination was performed using dose optimization techniques as appropriate, variously including the following: *Automated exposure control *Adjustment of mA and/or kV according to patient size (this includes techniques or standardized protocols for targeted exams where dose is matched to indication/reason for exam; i.e. extremities or head) *Use of iterative reconstruction technique DLP: 493 mGy-cm FINDINGS: MEDIATOR: Unremarkable. LUNGS: There is minimal scarring at the lung bases. The lungs are otherwise clear. MEDIASTINUM: The heart is at the upper limits of normal for size. There is no pericardial effusion. There is no significant lymph node enlargement. CORONARY ARTERY CALCIFICATION: [id number]. PLEURA: There is no pleural effusion. No pleural mass or thickening. AXILLA: No lymphadenopathy. UPPER ABDOMEN: The liver is of diminished attenuation. OSSEOUS STRUCTURES: Multiple old healed left rib fractures. There is a healing lateral ninth rib fracture. There are acute fractures of the posterior lateral left seventh and eighth ribs. CT/CT chest wo IV con IMPRESSION: Acute fractures of the posterior lateral left seventh and eighth ribs. Multiple old healed left rib fractures. Fatty liver. Fleischner guidelines were followed.
[2023-07-31 15:35] VITALS: BP 144/86; PULSE 84; RESP 18; TEMP 36.9; O2SAT 97; BMI 39.1
--- NOTE | 2023-07-31 15:39 | ED_ITS ---
HPI - General Adult General Chief complaint: Fall Stated complaint: Fall today - rib pain Time Seen by Provider: 07/31/23 22:23 Source: patient Mode of arrival: ambulatory Limitations: no limitations History of Present Illness ED Provider: Tim Goyal PA-C HPI narrative: 58-year-old male with past medical history of peripheral vascular disease anemia, and osteoarthritis presents to the ED for left-sided rib chest pain after falling onto rib today. 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 Patient denies hitting head or loss of consciousness. Patient denies any headache, dizziness, chest pain, abdominal pain before falling. Patient states history of left rib fractures in the past. Related Data Previous Rx's ?Medication ?Instructions ?Recorded blood pressure monitor (Blood #1 ea 02/16/22 Pressure Kit) sildenafil 100 mg tablet (Viagra) 100 mg PO DAILY PRN sexual 07/21/22 activity #14 tabs benzonatate 100 mg capsule 100 mg PO BID PRN cough #20 caps 03/14/23 furosemide 20 mg tablet (Lasix) 20 mg PO QAM 4 days #4 tabs 07/08/23 comp.stocking,thigh,long,large #12 ea 07/29/23 incentive spirometry #1 ea 07/29/23 oxycodone 5 mg capsule 5 mg PO TID PRN pain 3 days #9 caps 08/01/23 Allergies Allergy/AdvReac Type Severity Reaction Status Date / Time No Known Allergies Allergy Verified 07/31/23 15:39 Review of Systems 2 Review of Systems: Left-sided rib pain Yes all other systems are reviewed and are negative [facility] Past Medical History Medical History No known health problems Family History Family History Maternal Grandfather Pancreatic cancer Social History Social History Housing: Condominium Alcohol intake: current Alcohol intake frequency: a few times a month Alcohol type: beer Patient Tobacco Use Status: Former Tobacco user Tobacco use type: Cigarette Years Smoked: 11 years old Smoked in Last 30 Days: No e-Cigarette/Vaping Use: Never Used Second Hand Smoke Exposure: No Use of substances other than those prescribed or required for medical reasons: No Advance Directives: No Advance Directives Information Provided: No Current occupational status: employed 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, 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 Cognitive needs: No Hearing needs: No Vision needs: Yes Physical Exam ED Vital Signs: Vital Signs - 24 hr 08/01/23 00:25 08/01/23 02:56 Temperature 98.6 F 98.2 F Pulse Rate 77 82 Respiratory Rate 16 16 Blood Pressure 157/80 H 148/76 H Pulse Oximetry 95 98 Oxygen Delivery Method Room Air Room Air BMI result Body Mass Index 39.1 Const General: cooperative, healthy appearing, comfortable, no acute distress, well developed, alert, awake and Physically active Orientation/consciousness: oriented to person, oriented to place, oriented to time and patient oriented x3 HENMT Head: Yes normal to inspection, Yes No palpable skull fracture present and Yes normocephalic Eyes General: appearance normal, both eyes and all related structures Neck Neck: Yes normal visual inspection, Yes full ROM, Yes no lymphadenopathy, Yes no meningeal signs, Yes trachea midline, Yes supple, No anterior neck swelling and No tender Chest Chest palpation & inspection: normal inspection of the chest Chest/axillae images: 2 1. Positive for tenderness on palpation. Negative for crepitus, ecchymosis, or deformity. Negative for erythema Resp Effort & Inspection: normal respiratory effort and able to speak in complete sentences Cardio Jugular venous distension: no JVD Heart sounds: S1 normal heart sound present and S2 normal heart sound present GI Inspection: Yes normal to inspection Palpation (GI): Soft to palpation, not firm, nontender, no guarding and not rigid General: No CVA tenderness and Yes no CVA tenderness Back/Spine/Pelvis Back: no CVA tenderness, No CVA tenderness and No back tenderness Skin General skin exam: no rashes or lesions noted, elasticity normal and turgor normal Neuro General: oriented to person, oriented to place, oriented to time, patient oriented x3, gait normal, tone normal, moves all extremities, Normal light touch and pain sensation, no meningeal signs, no focal motor deficits, CN's II-XI intact bilaterally and normal sensation to monofilament Extrem General: Yes normal to inspection, Yes full ROM and Yes capillary refill normal Psych Appearance: grossly normal, well kempt and not disheveled Course Course Course Narrative: RME- 58-year-old male presents for evaluation of left flank pain after falling today. Patient reports losing his balance and falling onto his left side. He reports fracturing his left wrist and ribs 1 month ago. He reports injuring the same side after losing his balance and falling today. On exam there is no ecchymosis or crepitus. Plan for x-rays Medications Administered Discontinued Medications Generic Name Dose Route Start Last Admin Trade Name Freq PRN Reason Stop Dose Admin Oxycodone HCl 5 mg 07/31/23 23:28 08/01/23 01:19 Oxycodone Hcl Immed Release 5 Mg Tablet PO 07/31/23 23:29 5 mg ONCE ONE Administration Medical Decision Making Medical Decision Making [facility] Narrative: 58-year-old male history of left lower rib pain after falling onto left-sided chest today on a golf course. Denies any head. Whole-body evaluated and negative for life threatening issues. Chest x-ray shows 2 new rib fractures on top of old chronic fractures. Patient discharged to incentive spirometer and pain meds informed to follow-up. Patient's explained worrisome signs and informed to come to the ED. not suspecting brain bleed or any life threatening injuries. Differential Diagnosis Differential Diagnoses: The differential diagnosis associated with the presentation includes (Rib fracture, pneumothorax, hemothorax) Admission/Observation Consideration of admission/observation: Escalation of care including admission/observation considered Independent Interpretation I performed an independent interpretation of an: Plain X-Ray Radiology Impression Discussion of test interpretation with radiology: I have reviewed the radiologist's reading. Independent Historian Clinical information obtained from an independent historian. History obtained from or confirmed by: Other (Patient) Prescription Management I considered prescription management with: Pain Medication Discharge Plan Discharge Clinical Impression: Fracture of rib of left side Patient Disposition: Home, Self-Care Instructions: Rib Fracture (ED) Additional Instructions: You have 2 new rib fractures. Recommend follow-up with primary care provider. Recommend using incentive spirometry every hour. He will be discharged with pain meds. Return to ED immediately for any coughing up blood, chest pain worsening, shortness of breath, bluish black discoloration, abdominal pain, headache, abdominal pain, rectal bleeding, nausea, or any other concerning symptoms. Prescriptions: New oxycodone 5 mg capsule 5 mg PO TID PRN (Reason: pain) 3 Days Qty: 9 0RF Rx Instructions: Partial Fill upon patient request. No Action furosemide [Lasix] 20 mg tablet 20 mg PO QAM 4 Days Qty: 4 0RF (DME) blood pressure monitor [Blood Pressure Kit] Kit See Rx Instructions .ROUTE .MEDSUPPLY Qty: 1 0RF Rx Instructions: As directed sildenafil [Viagra] 100 mg tablet 100 mg PO DAILY PRN (Reason: sexual activity) Qty: 14 3RF Rx Instructions: administer 30 minutes to 4 hours before activity benzonatate 100 mg capsule 100 mg PO BID PRN (Reason: cough) Qty: 20 0RF (DME) comp.stocking,thigh,long,large Misc See Rx Instructions .Route Qty: 12 0RF Rx Instructions: As directed 20-30 mm HG (DME) incentive spirometry See Rx Instructions .Route .MEDSUPPLY Qty: 1 0RF Rx Instructions: As directed Stand Alone Forms: Work/School Release Interventions: ED Discharge Assessment Last Done: 08/01/23 02:56 Discharge Date/Time: 08/01/23 02:25 Print Language: Swedish
[2023-07-31 22:48] VITALS: BP 162/92; PULSE 72; RESP 20; TEMP 36.8; O2SAT 96
[2023-08-01 00:25] VITALS: BP 157/80; PULSE 77; RESP 16; TEMP 37; O2SAT 95
[2023-08-01] MEDS: oxyCODONE HCl Immed Release 5 MG TABLET PO (01:19)
[2023-08-01 02:56] VITALS: BP 148/76; PULSE 82; RESP 16; TEMP 36.8; O2SAT 98
== END 2023-08-01 02:25 | disposition home or self-care (01) ==
PROVIDERS: Emergency Provider Internal Medicine; PCP Internal Medicine
DX: S22.32XA Fracture of one rib, left side, initial encounter for closed fracture (principal); W10.2XXA Fall (on)(from) incline, initial encounter; Y93.01 Activity, walking, marching and hiking; Y92.39 Other specified sports and athletic area as the place of occurrence of the external cause; Y99.0 Civilian activity done for income or pay; Z87.891 Personal history of nicotine dependence
CPT/HCPCS: 71101; 71250; 94010; 99284

== ENCOUNTER 2023-08-08 05:59 | Emergency (ER) | payer BC, SELFPAY ==
[2023-08-08 06:02] VITALS: BP 158/88; PULSE 81; RESP 18; TEMP 37; O2SAT 97; BMI 30.2
--- NOTE | 2023-08-08 10:10 | ED_ITS ---
HPI - General Adult General Chief complaint: General Medical Stated complaint: medical clearance to return to work Time Seen by Provider: 08/08/23 10:09 Source: patient Mode of arrival: ambulatory Limitations: no limitations History of Present Illness ED Provider: Gavi Najera HPI narrative: 58 yo male w/ hx obesity, fatty liver, HLD, anemia, ED, with 2 left sided rib fractures on 07/31 after he fell while playing golf who presents back to the ER for re-evaluation of ongoing left sided rib pain and concern he is unable to return to work. 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 Still has pain in the left side of his ribs. He ran out of the oxycodone that he was provided last week. He reports pain is 7/10 at times. He is able to take deep breath and has been using his incentive spirometer. No chest pain or difficulty breathing. He was able to get in with his PCP for more time of work. MD complaint: Left rib pain work note Onset (ago): day(s) Location: chest Radiation: non-radiation Severity: moderate Severity scale (1-10): 7 Quality: aching Pain Consistency: constant Relieving factors: rest Exacerbating factors: movement Associated symptoms: denies other symptoms Treatments prior to arrival: none Related Data Previous Rx's ?Medication ?Instructions ?Recorded blood pressure monitor (Blood #1 02/16/22 Pressure Kit) sildenafil 100 mg tablet (Viagra) 100 mg PO DAILY PRN sexual 07/21/22 activity #14 tabs benzonatate 100 mg capsule 100 mg PO BID PRN cough #20 caps 03/14/23 furosemide 20 mg tablet (Lasix) 20 mg PO QAM 4 days #4 tabs 07/08/23 comp.stocking,thigh,long,large #12 ea 07/29/23 incentive spirometry #1 ea 07/29/23 oxycodone 5 mg capsule 5 mg PO TID PRN pain 3 days #9 caps 08/01/23 ibuprofen 600 mg tablet 600 mg PO Q8H PRN pain #20 tabs 08/08/23 lidocaine 5 % topical patch 1 patch topical DAILY #15 ea 08/08/23 oxycodone 5 mg tablet 5 mg PO Q8H PRN severe pain (scale 08/08/23 score 7-10) #6 tabs Allergies Allergy/AdvReac Type Severity Reaction Status Date / Time No Known Allergies Allergy Verified 08/08/23 06:05 Review of Systems Review of Systems: Yes all other systems are reviewed and are negative [facility] Past Medical History Medical History No known health problems Family History Family History Maternal Grandfather Pancreatic cancer Social History Social History Housing: [facility] Alcohol intake: current Alcohol intake frequency: a few times a month Alcohol type: beer Patient Tobacco Use Status: Former Tobacco user Tobacco use type: Cigarette Years Smoked: 11 years old e-Cigarette/Vaping Use: Never Used Second Hand Smoke Exposure: No Advance Directives: No Advance Directives Information Provided: No Do you have a plan to hurt others: No Plan Current occupational status: employed 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 Oriented X3. No acute distress. HEENT: normal inspection CVS: Normal heart rate and rhythm. Pulses normal. Respiratory: No respiratory distress. lung sounds are clear throughout. Left lateral rib tenderness, no ecchymosis, no crepitus Skin: Skin warm and dry. Normal skin color. Normal skin turgor. No rashes. Extremities: normal times, no gross joint swelling Neuro: Oriented X 3. No motor deficit. No sensory deficit. Medical Decision Making Medical Decision Making MDM Narrative: 58-year-old male with recent fractures to the ER for re-evaluation of pain as well as a work note. 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 He has not interested in filing with [facility]. On arrival to the ER his vital signs are stable, his lungs are clear he had low cyst for pneumonia. No need for repeat imaging today. We discussed the course of rib fractures and need for outpatient follow-up and control. He follows up with his primary care in 2 weeks. advised initiation of NSAIDs, Tylenol, Lidoderm patches for [id number] pain and only oxycodone for severe pain. Will prescribe shortness of oxycodone for this. He will follow up with his PCP. Work note provided for 1 week. 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 reviewed External Record Review External record reviewed: Outpatient record and Prior outpatient radiology Tests considered The following testing was considered but not selected: CXR considered Prescription Management I considered prescription management with: Pain Medication Chronic Conditions Patient?s care impacted by: Other (obesity) Critical Care Time Critical Care Time Critical Care Time: No Discharge Plan Discharge Clinical Impression: Fracture, ribs Qualifiers: Encounter type: subsequent encounter Fracture type: closed Laterality: left Fracture healing: with routine healing Qualified Code(s): S22.42XD - Multiple fractures of ribs, left side, subsequent encounter for fracture with routine healing Patient Disposition: Home, Self-Care Instructions: Rib Fracture (ED) Additional Instructions: Continue to use the incentive spirometer. Take the prescribed ibuprofen for moderate pain, take the prescribed oxycodone for severe pain only. Do not drive after taking this medication. Follow-up with your doctor If you develop new or worsening symptoms call 911 or come back to the ER for further evaluation. Prescriptions: New oxycodone 5 mg tablet 5 mg PO Q8H PRN (Reason: severe pain (scale score 7-10)) Qty: 6 0RF Rx Instructions: Partial Fill upon patient request. ibuprofen 600 mg tablet 600 mg PO Q8H PRN (Reason: pain) Qty: 20 0RF lidocaine 5 % adhesive patch,medicated 1 patch topical DAILY Qty: 15 0RF Rx Instructions: leave on most painful area for up to 12 hrs No Action furosemide [Lasix] 20 mg tablet 20 mg PO QAM 4 Days Qty: 4 0RF oxycodone 5 mg capsule 5 mg PO TID PRN (Reason: pain) 3 Days Qty: 9 0RF Rx Instructions: Partial Fill upon patient request. (DME) blood pressure monitor [Blood Pressure Kit] Kit See Rx Instructions .ROUTE .MEDSUPPLY Qty: 1 0RF Rx Instructions: As directed sildenafil [Viagra] 100 mg tablet 100 mg PO DAILY PRN (Reason: sexual activity) Qty: 14 3RF Rx Instructions: administer 30 minutes to 4 hours before activity benzonatate 100 mg capsule 100 mg PO BID PRN (Reason: cough) Qty: 20 0RF (DME) comp.stocking,thigh,long,large Misc See Rx Instructions .Route Qty: 12 0RF Rx Instructions: As directed 20-30 mm HG (DME) incentive spirometry See Rx Instructions .Route .MEDSUPPLY Qty: 1 0RF Rx Instructions: As directed Referrals: Joycelyn Blankenship MD [Primary Care Provider] - Stand Alone Forms: Work/School Release Discharge Date/Time: 08/08/23 12:00 Print Language: Rwandan
== END 2023-08-08 12:00 | disposition home or self-care (01) ==
PROVIDERS: Emergency Provider Emergency Medicine; PCP Internal Medicine
DX: R07.81 Pleurodynia (principal); S22.42XD Multiple fractures of ribs, left side, subsequent encounter for fracture with routine healing; W19.XXXD Unspecified fall, subsequent encounter
CPT/HCPCS: 99281; 99283

== ENCOUNTER 2023-10-13 13:19 | Outpatient (AMB) | payer BC, SELFPAY ==
--- NOTE | 2023-10-13 13:29 | A.OFFVIS_ITS ---
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 Patient states he has been experiencing bilateral leg swelling since having a fall in late July of 2023. His right knee is visibly swollen. Has switched his diet, and stopped golfing to try to alleviate his discomfort. Nothing has helped so far. 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 This all began as a workup from the emergency room seen back on 07/25/2023. Had a prior history of a fall with fractures. At that time he noticed swelling of the lower extremities and it has progressively gotten worse. He reports that he has been trying to elevate his legs and has had a trial of compression which she is having an extremely difficult time wearing. 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 It has been affecting there daily activities including work as a postman. It is noted more so in right leg. Patient denies any previous venous surgery or injections. Patient denies any history of DVT/ PE. - ultrasound negative from emergency room dated 07/25/2023 Patient denies any history of phlebitis. Trial of compression includes - [id number] They now present for vascular evaluation regarding their varicose veins. 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 Cognitive needs: No Hearing needs: No Vision needs: Yes Review of Systems Const Reports as per HPI ENT Reports no additional complaints Card Denies chest pain, Denies chest pain at rest and Denies chest pain with activity Resp Denies chest congestion and Denies cough GI Reports no additional complaints Musc Details: pain over varicosities, aching of lower extremities, swelling, cramping, heaviness and tiredness, itching Denies abnormal gait Skin/Breast Reports pruritus and Denies wounds Neuro Reports no additional complaints and Denies abnormal gait Psych Denies no additional complaints Physical Exam Vital Signs: BMI result Body Mass Index 29.8 Const General: cooperative, healthy appearing and comfortable Orientation/consciousness: oriented to person, oriented to place and oriented to time Neck Carotids: no bruits Chest Chest palpation & inspection: normal inspection of the chest and normal palpation of entire chest wall Resp Effort & Inspection: normal respiratory effort and able to speak in complete sen tences Cardio Other: Palpable dorsalis pedis pulses bilateral Rate: regular rate Heart sounds: S1 normal heart sound present and S2 normal heart sound present Peripheral pulses: Peripheral pulses 2+ throughout GI Inspection: Yes normal to inspection Skin Other: +2 edema, in addition I noticed focal swelling in the knee CEAP Classification C5 - evidence of healed ulceration Ep - Etiology Primary As - superficial veins P - reflux General skin exam: dry skin Neuro General: oriented to person, oriented to place and oriented to time Extrem Right lower extremity: full ROM, normal capillary refill and edema Left lower extremity: full ROM, normal capillary refill and edema Psych Mental Status: mental status grossly normal Assessment & Plan Assessment & Plan (1) Varicose veins of right lower extremity with inflammation: Code(s): I83.11 - Varicose veins of right lower extremity with inflammation Category: Medical Plan: In short patient has lower extremity swelling. It may be multifactorial in nature as he is a morbidly obese gentleman, with a BMI close to 40. In addition he has had recent trauma which may have added to the lower extremity swelling. We did discuss routine conservative measures including compression elevation and exercise. I did provide information regarding appropriate use of compression stockings and where to purchase some [id number] stockings as well. I have taken the liberty of ordering venous insufficiency testing and he will follow up with us after testing. Thank you for allowing us to assist in his care. If there are any questions or concerns please do not hesitate to contact us. The patient had an opportunity to ask questions regarding the treatment plan. All questions were answered. Imaging studies, laboratory studies and physical exam results were discussed and reviewed in detail. No major barriers to understanding were identified. The patient expressed understanding and agreement with the above treatment plan. The patient is aware they should contact our office by phone for worsening of the current condition or the appearance of new symptoms. Thank you for allowing me to participate in the vascular care of this patient. If you have any questions or concerns regarding the treatment for the above condition please do not hesitate to contact me. The office telephone contact is [phone]. This note is constructed using voice recognition software. While every effort has been made to ensure accuracy, digging machine operator errors may have been included. Thank you for allowing me to participate in the care of your patient. Yours sincerely, Zana Cruz MD, FACS, R.P.V.I. (2) Effusion, right knee: Code(s): M25.461 - Effusion, right knee Category: Medical Plan: I did appreciate some swelling of the right knee. I do think this is independent of the rest of the swelling of his lower extremity. Did place a referral to orthopedic surgery for further evaluation. He will continue to follow us for venous disease. Thank you for allowing us to assist in his care. Orders: Orders US venous duplex LE BI 1 Week M25.461 - Effusion, right knee Referrals Orthopedics Referral M25.461 - Effusion, right knee Coding Level of Care Code New Pt Level 4 (14173) Diagnoses Varicose veins of right lower extremity with inflammation I83.11 Effusion, right knee M25.461
[2023-10-13 13:30] VITALS: BMI 29.8
== END 2023-10-13 14:34 | disposition home or self-care (01) ==
PROVIDERS: PCP Internal Medicine; Visit Provider Surgery Vascular Surgery
DX: I83.11 Varicose veins of right lower extremity with inflammation (principal); M25.461 Effusion, right knee
CPT/HCPCS: 99204

== ENCOUNTER → 2023-10-13 13:19 | Outpatient (BNVA) | payer BC, SELFPAY | PROVIDERS: PCP Internal Medicine; Visit Provider Surgery Vascular Surgery ==

== ENCOUNTER 2023-11-17 11:19 | Outpatient (AMB) | payer BC, SELFPAY ==
[2023-11-17 11:29] VITALS: BMI 29.8
--- NOTE | 2023-11-17 11:29 | MHC.OFFVIS ---
Vital Signs 11/17/23 11:29 Height 6 ft Weight 220 lb BMI 29.8 Intake Visit Reasons: New prob- Right Knee Effusion Intake Note: Jose is a 58 year old male who presents today for a new problem visit with complaints of right knee pain. He was referred by Vascular, due to swelling of the right knee which was believed to be independent from the generalized lower extremity swelling being treated with Vascular. Patient reports that he fell about 2.5 months ago where he fractured his left wrist and fractured 2-3 ribs. Since this fall he has increased pain and swelling of the right knee. He was seen with vascular who recommended having the right knee aspirated. 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 Allergies No Known Allergies Allergy (Verified 11/17/23 11:37) HPI HPI New prob- Right Knee Effusion: Details: Jose is a 58-year-old gentleman who comes in with right lower leg and knee pain and stiffness. He was referred from vascular surgery. He was diagnosed with venous insufficiency. 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 He describes tightness in his lower legs and discomfort. He feels that he can not bend his right knee to get on compression socks and this is a big issue for him. He does have a history of right knee osteoarthritis. 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 Palpable pulses and brisk capillary refill. He has discomfort with knee flexion past 95 degrees and a moderate right knee effusion. Office Procedures Joint Injection/Aspiration Joint Injection/Aspiration Details: Injected 1 mL of Decadron and 3 mL 1% lidocaine and 3 mL of 0.25% Marcaine. Site was prepped using aseptic technique. Patient tolerated the procedure well. Primary Site: right knee Approach Used: anterolateral Coding 22366 - Large joint Procedure code (CPT) selection complete Results Reviewed Results Reviewed: I personally reviewed relevant radiographs. Right knee OA Assessment & Plan Assessment & Plan (1) Effusion, right knee: Code(s): M25.461 - Effusion, right knee Category: Medical Plan: This is a 58-year-old gentleman with right knee effusion in the setting of osteoarthritis. I injected and aspirated normal fluid from his knee. I only got about 50 mL but he stated he felt a little bit better. I had a long discussion with him regarding treatment options as well as the rationale behind his diagnosis of venous insufficiency. He is seeing his PCP next week and I think it is reasonable to discuss this with them. From a vascular perspective it does not sound like there is any intervention warranted other than compression stockings. I do think he would benefit from activity modification and as a mailroom messenger, he is on his feet a lot and I think this is not helping. I also recommend exercise that is non impact like stationary bike or swimming. He can follow up with me in 3 months. Coding Level of Care Code Est Pt Level 4 (49750) Diagnoses Effusion, right knee M25.461 CPT Codes Coding - Large joint: 05890 - Large joint ([id number])
== END 2023-11-17 12:09 | disposition home or self-care (01) ==
PROVIDERS: PCP Internal Medicine; Visit Provider Orthopaedic Surgery
DX: M25.461 Effusion, right knee (principal)
CPT/HCPCS: 20610; 99214

== ENCOUNTER → 2023-11-17 11:19 | Outpatient (BNVA) | payer BC, SELFPAY | PROVIDERS: PCP Internal Medicine; Visit Provider Orthopaedic Surgery | DX: M25.461 Effusion, right knee (principal) | CPT/HCPCS: 20610; J0665; J1100 ==

== ENCOUNTER 2023-11-25 13:31 | Outpatient (AMB) | payer BC, SELFPAY ==
--- NOTE | 2023-11-25 13:37 | MHC.PC.OV ---
Vital Signs 11/25/23 13:39 11/25/23 14:01 Height 6 ft Weight 269 lb 4 oz BMI 36.5 BP 100/60 120/80 Blood Pressure Location Lt brachial Lt brachial Position Sitting Sitting Pulse 72 Pulse Source Pulse Oximeter Pulse Oximetry (%) 97 Oxygen Delivery Method Room Air Intake Visit Reasons: PE Intake Note: Patient is here today for a physical. 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 Last seen in July had a fall fracturing the left rib and left wrist. Review of the notes has seen Orthopedics for right knee effusion and has had injections. Patient did also see the vascular surgeon for the peripheral vascular disease discussed about conservative measures and was advised to get venous studies. complains of L hip pain PFSH Medical History (Updated 11/25/23 @ 14:10 by Joycelyn Blankenship MD) Effusion, right knee Varicose veins of right lower extremity with inflammation Exposure to COVID-19 virus Cough Vision changes Tinea versicolor Erectile dysfunction Leg swelling Diarrhea Colonoscopy refused Mass of left hip region Colon cancer screening Blood pressure elevated without history of HTN No known health problems Surgical History (Updated 11/25/23 @ 13:44 by OLIVER Lala) No pertinent past surgical history Family History (Updated 11/25/23 @ 13:37 by OLIVER Llaa) Maternal Grandfather Pancreatic cancer Social History (Updated 11/25/23 @ 14:02 by Joycelyn Blankenship MD) Housing: Condominium Alcohol intake: current Alcohol intake frequency: a few times a month Alcohol type: beer Comment: 2-3 drinks QD Patient Tobacco Use Status: Former Tobacco user Tobacco use type: Cigarette Years Smoked: 11 years old e-Cigarette/Vaping Use: Never Used Second Hand Smoke Exposure: No service: No Current occupational status: employed 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 1. Little interest or pleasure in doing things: not at all 2. Feeling down, depressed, or hopeless: not at all 3. Trouble falling or staying asleep, or sleeping too much: not at all 4. Feeling tired or having little energy: not at all 5. Poor appetite or overeating: not at all 6. Feeling bad about yourself - or that you are a failure or have let yourself or your family down: not at all 7. Trouble concentrating on things, such as reading the newspaper or watching television: not at all 8. Moving or speaking so slowly that other people could have noticed. Or the opposite - being so fidgety or restless that you have been moving around a lot more than usual: not at all 9. Thoughts that you would be better off or of hurting yourself in some way: not at all Total score: 0 Depression Screening Interpretation: Negative Depression Screening Done: Yes Source: Developed by Drs. Jesus Russell, Nichole Patino, Francois Espinoza and colleagues, with an educational gian from [employer]. Thrive Questionnaire Date Thrive assessed: 11/25/23 I am a: Patient What is your living situation today?: I choose not to answer this question Within the past 12 months, did the food you bought not last and you didn't have the money to get more?: I choose not to answer this question Within the past 12 months, did you worry whether your food would run out before you got money to buy more?: I choose not to answer this question Do you have trouble paying for medicines?: I choose not to answer this question Do you have trouble getting transportation to medical appointments?: I choose not to answer this question Do you have trouble paying your heating and electricity bill?: I choose not to answer this question Do you have trouble taking care of your child, family member or friend?: I choose not to answer this question Do you have trouble with day-to-day activities such as bathing, preparing meals, shopping, managing finances, etc.?: I choose not to answer this question Are you currently unemployed and looking for a job?: I choose not to answer this question Are you interested in more education?: I choose not to answer this question Please select the resources that you would like help with: None Currently or been in a relationship where the following occur: I choose not to answer THRIVE Score: 0 AUDIT C Alcohol Use Questionnaire (AUDIT-C) 1. How often do you have a drink containing alcohol?: Never Total Score: 0 NEEL-7 AMB Questionnaire NEEL-7 Date NEEL - 7 assessed: 11/25/23 Feeling nervous, anxious, or on edge: 0 = Not at all Not being able to stop or control worryin = Not at all Worrying too much about different things: 0 = Not at all Trouble relaxin = Not at all Being so restless that it is hard to sit still: 0 = Not at all Becoming easily annoyed or irritable: 0 = Not at all Feeling afraid as if something awful might happen: 0 = Not at all Total NEEL-7 score (0-4 normal; 5-9 mild; 10-14 moderate; 15-21 severe): 0 Source: Developed by Drs. Jesus Russell, Nichole Patino, Francois Espinoza and colleagues, with an educational gian from [employer]. Review of Systems Const Denies poor appetite and Denies weakness Eyes Denies no additional complaints ENT Reports Normal hearing present, Denies dizziness, Denies nasal congestion, Denies tinnitus and Denies sore throat Card Denies chest pain, Denies syncope, Denies rapid heart rate and Denies dyspnea Resp Denies cough and Denies dyspnea GI Denies change in stool character, Reports constipation, Denies diarrhea, Denies nausea and Denies vomiting Denies dysuria and Denies urinary frequency Neuro Reports Normal hearing present, Denies confusion, Denies dizziness, Denies syncope and Denies weakness Psych Denies confusion Physical exam (Primary Care) Vital Signs: Last Vital Signs Pulse 72 11/25/23 13:39 BP 100/60 11/25/23 13:39 Pulse Ox 97 11/25/23 13:39 Oxygen Delivery Method Room Air 11/25/23 13:39 BMI result Body Mass Index 36.5 Tobacco/Smoking Status: Tobacco use Status Tobacco use date assessed 11/25/23 11/25/23 13:45 Patient Tobacco Use Status Former Tobacco user 11/25/23 13:45 Tobacco use type Cigarette 11/25/23 13:45 e-Cigarette/Vaping Use Never Used 11/25/23 13:45 PHQ-9: PHQ-9 Score PHQ-9: Total score 0 11/25/23 13:45 Depression Screening Interpretation: Negative Thrive Assessment: Date of Thrive Assessment Date Thrive assessed 11/25/23 11/25/23 13:45 Currently or been in a relationship where the following occur: I choose not to answer Const General: No confusion Orientation/consciousness: No confusion HENMT Head: Yes normocephalic Ears: external ears normal and TM's normal bilaterally Face and sinus: Yes normal facial exam Mouth: moist mucous membranes Throat: Yes tonsils normal Eyes Conjunctivae: conjunctivae normal Pupils: Equal, round and reactive pupils present and Pupil accommodation reflex normal Direct Ophthalmoscopy: normal light reflex Neck Neck: No lymphadenopathy Thyroid: Thyroid normal Chest Chest palpation & inspection: normal inspection of the chest Resp Effort & Inspection: normal respiratory effort and no audible wheezes Auscultation: clear to auscultation bilaterally, no crackles, no wheezes and lung sounds not diminished Cardio Rate: regular rate Rhythm: regular rhythm Peripheral pulses: radial pulses present and dorsalis pedis present GI Other: Declined Palpation (GI): no masses Auscultation: normal bowel sounds and normoactive bowel sounds Rectal Exam - Male: Yes deferred Other: Declined Skin General skin exam: no rashes or lesions noted Rashes: no rashes Neuro General: No confusion Cranial nerves: Yes Equal, round and reactive pupils present and Yes Normal hearing present Cognition (Neuro): normal cognition Gait exam (Neuro): Normal gait present Motor exam (neuro): 5/5 motor strength present throughout Deep tendon reflexes (DTR's): Right brachioradialis reflex intensity grade: 2+, Left brachioradialis reflex intensity grade: 2+, Right patellar reflex intensity grade: 2+ and Left patellar reflex intensity grade: 2+ Extrem General: No edema Assessment and Plan Assessment & Plan (1) Annual physical exam: Code(s): Z00.00 - Encounter for general adult medical examination without abnormal findings Plan: Patient is advised to eat healthy, keep well hydrated, keep active and have adequate sleep. (2) Obesity (BMI 30-39.9): Code(s): E66.9 - Obesity, unspecified Plan: Diet and exercise (3) Fatty liver: Comment: 2005 Code(s): K76.0 - Fatty (change of) liver, not elsewhere classified Plan: Low-fat diet and exercise (4) Peripheral vascular disease: Code(s): I73.9 - Peripheral vascular disease, unspecified Plan: When sitting down elevate the legs, exercise, and support stockings (5) Hypercholesterolemia: Code(s): E78.00 - Pure hypercholesterolemia, unspecified Plan: Avoid fried foods, chicken skin, eggs, butter margarine, pastries and meat. Be it pork or beef they have a lot of cholesterol LDL goal of less than 130 and triglyceride of less than 150. (6) Anemia: Code(s): D64.9 - Anemia, unspecified Plan: Chronic and stable continuing to monitor (7) Left hip pain: Code(s): M25.552 - Pain in left hip (8) Tinea pedis: Code(s): B35.3 - Tinea pedis (9) Onychomycosis: Code(s): B35.1 - Tinea unguium Orders: Orders Comprehensive Met. Panel Today E78.00 - Pure hypercholesterolemia, unspecified Thyroid Stimulating Hormone Today E78.00 - Pure hypercholesterolemia, unspecified Vitamin B12 and Folate Today E78.00 - Pure hypercholesterolemia, unspecified Ferritin Today E78.00 - Pure hypercholesterolemia, unspecified IRON PROFILE Today E78.00 - Pure hypercholesterolemia, unspecified XR hip LT min 2V Today M25.552 - Pain in left hip Complete Blood Count Auto Diff Today E78.00 - Pure hypercholesterolemia, unspecified Free T4 (Free Thyroxine) Today E78.00 - Pure hypercholesterolemia, unspecified Lipid Panel Today E78.00 - Pure hypercholesterolemia, unspecified Reticulocyte Count Today E78.00 - Pure hypercholesterolemia, unspecified Prostate Specific Antigen Scr Today E78.00 - Pure hypercholesterolemia, unspecified Medications: New clotrimazole 1% 1 appl topical BID 4 weeks 45 grams 1RF B35.3 - Tinea pedis miconazole nitrate 2% (Zeasorb AF) 1 appl topical BID 85 grams 11RF B35.3 - Tinea pedis meloxicam 15 mg PO DAILY 30 tabs 0RF M25.552 - Pain in left hip Coding Level of Care Code Est Pt Prev Care 40-64y(84889) Diagnoses Annual physical exam Z00.00 Obesity (BMI 30-39.9) E66.9 Fatty liver K76.0 Peripheral vascular disease I73.9 Hypercholesterolemia E78.00 Anemia D64.9 Left hip pain M25.552 Tinea pedis B35.3 Onychomycosis B35.1
[2023-11-25 13:39] VITALS: BP 100/60; PULSE 72; O2SAT 97; BMI 36.5
[2023-11-25 14:01] VITALS: BP 120/80
== END 2023-11-25 15:46 | disposition home or self-care (01) ==
PROVIDERS: PCP Internal Medicine; Visit Provider Internal Medicine
DX: Z00.00 Encounter for general adult medical examination without abnormal findings (principal); E66.9 Obesity, unspecified; I73.9 Peripheral vascular disease, unspecified; Z68.36 Body mass index [BMI] 36.0-36.9, adult; K76.0 Fatty (change of) liver, not elsewhere classified; E78.00 Pure hypercholesterolemia, unspecified; D64.9 Anemia, unspecified; M25.552 Pain in left hip; B35.3 Tinea pedis; B35.1 Tinea unguium

== ENCOUNTER → 2023-11-25 13:31 | Outpatient (BNVA) | payer BC, SELFPAY | PROVIDERS: PCP Internal Medicine; Visit Provider Internal Medicine | DX: Z00.01 Encounter for general adult medical examination with abnormal findings (principal); M25.552 Pain in left hip; K76.0 Fatty (change of) liver, not elsewhere classified; I73.9 Peripheral vascular disease, unspecified; E78.00 Pure hypercholesterolemia, unspecified; D64.9 Anemia, unspecified; B35.3 Tinea pedis; B35.1 Tinea unguium; E66.9 Obesity, unspecified; Z68.36 Body mass index [BMI] 36.0-36.9, adult | CPT/HCPCS: 96127 ==

== ENCOUNTER 2023-12-02 09:05 | Outpatient (REF) | payer BC, SELFPAY ==
--- NOTE | ~2023-12-02 | XR_ITS ---
EXAMINATION: XR HIP, LEFT CLINICAL INFORMATION: Patient had pain in left hip, per technologist, patient refused to change for exam. COMPARISON: 05/11/2022. TECHNIQUE: 2 views of the left hip. FINDINGS: Diffuse demineralization. Cystic lucencies particularly notable in the greater trochanter. Moderately-severe degenerative changes in the left hip with loss of the joint space, subchondral sclerosis and hypertrophic change. Alignment maintained. Vascular calcifications. XR/XR hip LT min 2V IMPRESSION: 1. Moderately-severe degenerative changes in the left hip. 2. Diffuse demineralization. Electronically signed by: Brandy Ha MD 12/20/2023 12:30 PM EDT
[2023-12-02 09:32] LABS: MANUAL DIFF FLAG NO
[2023-12-02 10:49] LABS: Basophils Percent Auto 0.6 % (0-2); Eosinophils Absolute Auto 0.1 X10*3/uL (0.0-0.4); Eosinophils Percent Auto 1.1 % (0-4); Hematocrit 36.7 % (42.0-52.0); Hemoglobin 12.5 g/dl (14.0-18.0); Imm Gran Abs Auto 0.02 X10*3/uL (0.00-0.03); Imm Gran Pct Auto 0.4 % (0.0-0.4); Immature Retic Fraction 11.2 % (2.3-13.4); Lymphocytes Percent Auto 20.8 % (20-40); Mean Corpuscular HGB Conc 34.1 g/dl (31.0-36.0); Mean Corpuscular Hemoglobin 32.7 pg (27.0-33.0); Mean Corpuscular Volume 96.1 fL (80.0-98.0); Mean Platelet Volume 9.7 fL (9.4-12.4); Monocytes Absolute Auto 0.7 X10*3/uL (0.1-1.2); Monocytes Percent Auto 15.7 % (2-11); Neutrophils Absolute Auto 2.9 x10*3/uL (2.0-8.3); Neutrophils Percent Auto 61.4 % (45-73); Platelet Count 210 X10*3/uL (160-400); Red Blood Count 3.82 X10*6/uL (4.60-5.80); Red Cell Distribution Width 13.3 % (11.0-16.0); Retic HGB Equivalent 35.7 pg (30.0-35.0); Reticulocyte Percent 1.9 % (0.5-1.8); Reticulocytes Absolute 0.074 X10*6/uL (0.026-0.095); White Blood Count 4.7 X10*3/uL (4.8-10.8)
[2023-12-02 11:30] LABS: Alanine Aminotransferase 41 U/L (0-40); Albumin Level 3.9 g/dL (3.5-5.0); Alkaline Phosphatase 128 U/L (39-117); Anion Gap 12 (12-20); Aspartate Amino Transferase 79 U/L (5-37); Bilirubin Total 0.6 mg/dL (0.0-1.0); Blood Urea Nitrogen 3 mg/dL (9-16); Calcium 9.2 mg/dL (8.4-10.2); Carbon Dioxide 29 mmol/L (22-29); Chloride 98 mmol/L (96-108); Cholesterol 197 mg/dL (<200); Estimated Glomerular Filt Rate > 60; Glucose Random 79 mg/dL (60-115); HDL Cholesterol 65 mg/dL (>40); Iron 88 mcg/dL (45-160); LDL Cholesterol Calculated 118 mg/dL (<100); Percent Iron Saturation 31 % (15-50); Potassium 3.9 mmol/L (3.3-5.1); Sodium 135 mmol/L (135-145); Total Iron Binding Capacity 287 mcg/dL (228-428); Total Protein 7.7 g/dL (6.5-8.0); Triglycerides 70 mg/dL (<150); Unsaturated Iron Binding 199 ug/dL
[2023-12-02 11:47] LABS: Ferritin 506 ng/mL (20-250); Free T4 (Free Thyroxine) 1.16 ng/dL (0.71-1.85); Thyroid Stimulating Hormone 1.61 uIU/mL (0.32-4.0)
[2023-12-02 11:55] LABS: Folate 8.6 ng/mL (> or = 4.0); Prostate Specific Antigen Scr 1.63 ng/mL (<0.05-4.0); Vitamin B12 247 pg/mL (200-900)
== END 2023-12-02 09:06 | disposition home or self-care (01) ==
LOC: HO.XRAY 09:05
PROVIDERS: PCP Internal Medicine; Visit Provider Internal Medicine
DX: E78.00 Pure hypercholesterolemia, unspecified (principal); M25.552 Pain in left hip; Z12.5 Encounter for screening for malignant neoplasm of prostate
CPT/HCPCS: 36415; 73502; 80053; 80061; 82607; 82728; 82746; 83540; 84153; 84439; 84443; 85025; 85045

== ENCOUNTER 2023-12-20 09:20 | Outpatient (AMB) | payer BC, SELFPAY ==
[2023-12-20 09:24] VITALS: BP 142/82; PULSE 68; O2SAT 94; BMI 36.9
--- NOTE | 2023-12-20 09:24 | MHC.PC.OV ---
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 Patient is here for the hip pain. [facility] Medical History (Updated 12/20/23 @ 19:12 by Joycelyn Blankenship MD) Effusion, right knee Varicose veins of right lower extremity with inflammation Exposure to COVID-19 virus Cough Vision changes Tinea versicolor Erectile dysfunction Leg swelling Diarrhea Colonoscopy refused Mass of left hip region Colon cancer screening Blood pressure elevated without history of HTN No known health problems Surgical History (Updated 11/25/23 @ 13:44 by OLIVER Lala) No pertinent past surgical history Family History (Updated 11/25/23 @ 13:37 by OLIVER Lala) Maternal Grandfather Pancreatic cancer Social History (Updated 11/25/23 @ 14:02 by Joycelyn Blankenship MD) Housing: Condominium Alcohol intake: current Alcohol intake frequency: a few times a month Alcohol type: beer Comment: 2-3 drinks QD Patient Tobacco Use Status: Former Tobacco user Tobacco use type: Cigarette Years Smoked: 11 years old e-Cigarette/Vaping Use: Never Used Second Hand Smoke Exposure: No service: No Current occupational status: employed 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, 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 Cognitive needs: No Hearing needs: No Vision needs: Yes Questionnaire Thrive Questionnaire Date Thrive assessed: 11/25/23 I am a: Patient What is your living situation today?: I choose not to answer this question Within the past 12 months, did the food you bought not last and you didn't have the money to get more?: I choose not to answer this question Within the past 12 months, did you worry whether your food would run out before you got money to buy more?: I choose not to answer this question Do you have trouble paying for medicines?: I choose not to answer this question Do you have trouble getting transportation to medical appointments?: I choose not to answer this question Do you have trouble paying your heating and electricity bill?: I choose not to answer this question Do you have trouble taking care of your child, family member or friend?: I choose not to answer this question Do you have trouble with day-to-day activities such as bathing, preparing meals, shopping, managing finances, etc.?: I choose not to answer this question Are you currently unemployed and looking for a job?: I choose not to answer this question Are you interested in more education?: I choose not to answer this question Please select the resources that you would like help with: None Currently or been in a relationship where the following occur: I choose not to answer THRIVE Score: 0 NEEL-7 AMB Questionnaire NEEL-7 Date NEEL - 7 assessed: 11/25/23 Source: Developed by Drs. Jesus Russell, Nichole Patino, Francois Espinoza and colleagues, with an educational gian from [employer]. Physical exam (Primary Care) Vital Signs: Last Vital Signs Pulse 68 12/20/23 09:24 BP 142/82 H 12/20/23 09:24 Pulse Ox 94 12/20/23 09:24 Oxygen Delivery Method Room Air 12/20/23 09:24 BMI result Body Mass Index 36.9 Tobacco/Smoking Status: Tobacco use Status Tobacco use date assessed 11/25/23 12/20/23 09:26 Patient Tobacco Use Status Former Tobacco user 12/20/23 09:26 Tobacco use type Cigarette 12/20/23 09:26 e-Cigarette/Vaping Use Never Used 12/20/23 09:26 Thrive Assessment: Date of Thrive Assessment Date Thrive assessed 11/25/23 12/20/23 09:26 Currently or been in a relationship where the following occur: I choose not to answer Const General: alert; No acute distress Eyes Conjunctivae: conjunctivae normal Resp Auscultation: clear to auscultation bilaterally Cardio Rate: regular rate Rhythm: regular rhythm GI Inspection: Yes normal to inspection Extrem General: Yes normal to inspection and No edema Coding Level of Care Code Est Pt Level 4 (69980) Diagnoses Left hip pain M25.552 Anemia, unspecified type D64.9 Anemia type: unspecified type Hypercholesterolemia E78.00 Fatty liver K76.0 Obesity (BMI 30-39.9) E66.9 Assessment & Plan Assessment & Plan (1) Left hip pain: Code(s): M25.552 - Pain in left hip Category: Medical Plan: X-rays pending. 19:00 called and discussed about the results of the left hip x-ray showing moderately severe degenerative left hip. Referral to ortho done (2) Anemia: Comment: Anemia of chronic disease Code(s): D64.9 - Anemia, unspecified Category: Medical Qualifiers: Anemia type: unspecified type Qualified Code(s): D64.9 - Anemia, unspecified Plan: Stable (3) Hypercholesterolemia: Code(s): E78.00 - Pure hypercholesterolemia, unspecified Category: Medical Plan: Avoid fried foods, chicken skin, eggs, butter margarine, pastries and meat. Be it pork or beef they have a lot of cholesterol (4) Fatty liver: Comment: 2005 Code(s): K76.0 - Fatty (change of) liver, not elsewhere classified Category: Medical Plan: Low-fat diet and exercise (5) Obesity (BMI 30-39.9): Code(s): E66.9 - Obesity, unspecified Category: Medical Plan: Diet and exercise Medications: New ketorolac 10 mg PO Q8H PRN 60 tabs 0RF pain M25.552 - Pain in left hip
== END 2023-12-20 10:30 | disposition home or self-care (01) ==
PROVIDERS: PCP Internal Medicine; Visit Provider Internal Medicine
DX: M25.552 Pain in left hip (principal); D64.9 Anemia, unspecified; Z68.36 Body mass index [BMI] 36.0-36.9, adult; E66.812 Obesity, class 2; E78.00 Pure hypercholesterolemia, unspecified; K76.0 Fatty (change of) liver, not elsewhere classified

== ENCOUNTER → 2023-12-20 09:20 | Outpatient (BNVA) | payer BC, SELFPAY | PROVIDERS: PCP Internal Medicine; Visit Provider Internal Medicine ==

== ENCOUNTER 2024-01-06 12:04 | Outpatient (AMB) | payer BC, SELFPAY ==
--- NOTE | 2024-01-06 12:08 | A.OFFVIS_ITS ---
Intake Visit Reasons: NewProb- osteoarthritis, left hip Intake Note: Jose is a 58 year old male who presents today for a new problem visit with complaints of left hip pain. He was referred by his PCP, Dr. Blankenship who ordered Ketorlac for his pain. Allergies No Known Allergies Allergy (Verified 12/20/23 09:24) HPI HPI NewProb- osteoarthritis, left hip: Details: Jose is a 58 year old male who presents today for a new problem visit with complaints of left hip pain. He was referred by his PCP, Dr. Blankenship who ordered Ketorlac for his pain. [facility] Medical History (Updated 01/06/24 @ 12:10 by Diony Saavedra MD) Effusion, right knee Varicose veins of right lower extremity with inflammation Exposure to COVID-19 virus Cough Vision changes Tinea versicolor Erectile dysfunction Leg swelling Diarrhea Colonoscopy refused Mass of left hip region Colon cancer screening Blood pressure elevated without history of HTN No known health problems Surgical History (Updated 11/25/23 @ 13:44 by OLIVER Lala) No pertinent past surgical history Family History (Updated 11/25/23 @ 13:37 by OLIVER Lala) Maternal Grandfather Pancreatic cancer Social History (Updated 11/25/23 @ 14:02 by Joycelyn Blankenship MD) Housing: Condominium Alcohol intake: current Alcohol intake frequency: a few times a month Alcohol type: beer Comment: 2-3 drinks QD Patient Tobacco Use Status: Former Tobacco user Tobacco use type: Cigarette Years Smoked: 11 years old e-Cigarette/Vaping Use: Never Used Second Hand Smoke Exposure: No service: No Current occupational status: employed 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 Large left lateral leg fluid collection versus lipoma. No redness or erythema but approximately a size of a football. Results Reviewed Results Reviewed: X-ray of the left hip shows moderate to severe with a large soft tissue mass Assessment & Plan Assessment & Plan (1) Mass of left hip region: Code(s): R22.42 - Localized swelling, mass and lump, left lower limb Category: Medical Plan: This is a 58-year-old with a large left leg soft tissue mass. I had seen him past for his knee which still hurts but the left superficial mass is concerning as I do not know what it is and I recommended MRI both with and without contrast. This was ordered stat. Orders: Orders MR hip LT wo/w con Today R22.42 - Localized swelling, mass and lump, left lower limb Coding Level of Care Code Est Pt Level 4 (64445) Diagnoses Mass of left hip region R22.42
== END 2024-01-06 12:18 | disposition home or self-care (01) ==
LOC: HO.HOS 12:05
PROVIDERS: PCP Internal Medicine; Visit Provider Orthopaedic Surgery
DX: R22.42 Localized swelling, mass and lump, left lower limb (principal)
CPT/HCPCS: 99214

== ENCOUNTER → 2024-01-06 12:04 | Outpatient (BNVA) | payer BC, SELFPAY | PROVIDERS: PCP Internal Medicine; Visit Provider Orthopaedic Surgery ==

== ENCOUNTER → 2024-04-12 09:31 | Outpatient (AMB) | payer BC, SELFPAY ==
--- NOTE | 2024-04-12 09:32 | A.OFFPC_ITS ---
Vital Signs 3 04/12/24 09:34 Height 6 ft Weight 271 lb 8 oz BMI 36.8 BP 140/70 H Blood Pressure Location Lt brachial Position Sitting Pulse 70 Pulse Source Pulse Oximeter Temp 97.1 F Temp Source Skin Pulse Oximetry (%) 98 Oxygen Delivery Method Room Air Intake Visit Reasons: 3mth f/u Intake Note: Patient is here to follow up on Hypercholesterolemia, PVD. Complaint of hip issues Concrete Mixer Required: No Moisture Machine Tender: Not Required per policy Accompanied by: Self / Same As Patient Allergies No Known Allergies Allergy (Verified 04/12/24 09:34) Tobacco use date assessed: 04/12/24 Dental Screening Dental Screen Date: 04/12/24 Did you have a dental visit in the last 12 months?: No Did you have a dental problem in the last 6 months where you did not have access to dental care?: No Was dental information given to patient?: No HPI 3mth f/u 2 HPI0 Details MRI L hip done already adn was advised going to [place] for further evaluation. But schedule for May 07, 2024 for L hip replacement The patient is a 59-year-old male presenting with a follow-up for management of left hip osteoarthritis and evaluation of a soft tissue mass. The patient has a history of fatty liver disease and hypercholesterolemia, requiring regular monitoring and management. In November, the patient underwent blood work which revealed anemia with a hemoglobin level of 12.5 g/dL and hematocrit of 36.7%, as well as mild leukopenia with a white blood cell count of 4.7 x 10^9/L. Despite these hematological findings, the patient's electrolytes, renal function, and blood glucose levels were within normal limits. The patient's lipid profile showed an elevated LDL cholesterol level of 118 mg/dL, and ferritin level was noted to be 506 ng/mL. The patient had an X-ray of the left hip in November, which indicated diffuse moderately severe degenerative changes, characteristic of osteoarthritis, with accompanying subchondral sclerosis. Despite the chronic hip pain, the patient declined a colonoscopy previously recommended. More recently, on March 15, 2024, the patient was evaluated by an orthopedic dentist due to persistent left hip pain. Radiographic findings again highlighted end-stage osteoarthritis and subchondral sclerosis, along with the identification of a soft tissue mass at the site. The orthopedic team has suggested further imaging with MRI, using contrast, to better assess the mass. The patient remains under orthopedic follow-up for these concerns. [facility] Medical History (Updated 04/12/24 @ 09:46 by Joycelyn Blankenship MD) Effusion, right knee Varicose veins of right lower extremity with inflammation Exposure to COVID-19 virus Cough Vision changes Tinea versicolor Erectile dysfunction Leg swelling Diarrhea Colonoscopy refused Mass of left hip region Colon cancer screening Blood pressure elevated without history of HTN No known health problems Surgical History No pertinent past surgical history Family History Maternal Grandfather Pancreatic cancer Social History Housing: Condominium Alcohol intake: current Alcohol intake frequency: a few times a month Alcohol type: beer Comment: 2-3 drinks QD Patient Tobacco Use Status: Former Tobacco user Tobacco use type: Cigarette Years Smoked: 11 years old e-Cigarette/Vaping Use: Never Used Second Hand Smoke Exposure: No service: No Current occupational status: employed 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 1. Little interest or pleasure in doing things: not at all 2. Feeling down, depressed, or hopeless: not at all 3. Trouble falling or staying asleep, or sleeping too much: not at all 4. Feeling tired or having little energy: not at all 5. Poor appetite or overeating: not at all 6. Feeling bad about yourself - or that you are a failure or have let yourself or your family down: not at all 7. Trouble concentrating on things, such as reading the newspaper or watching television: not at all 8. Moving or speaking so slowly that other people could have noticed. Or the opposite - being so fidgety or restless that you have been moving around a lot more than usual: not at all 9. Thoughts that you would be better off or of hurting yourself in some way: not at all Total score: 0 Depression Screening Interpretation: Negative Depression Screening Done: Yes Source: Developed by Drs. Nichole Dawson Kurt Kroenke and colleagues, with an educational gian from [employer]. Thrive Questionnaire Date Thrive assessed: 04/12/24 I am a: Patient What is your living situation today?: I have a steady place to live Within the past 12 months, did the food you bought not last and you didn't have the money to get more?: Never true Within the past 12 months, did you worry whether your food would run out before you got money to buy more?: Never true Do you have trouble paying for medicines?: No Do you have trouble getting transportation to medical appointments?: No Do you have trouble paying your heating and electricity bill?: No Do you have trouble taking care of your child, family member or friend?: No Do you have trouble with day-to-day activities such as bathing, preparing meals, shopping, managing finances, etc.?: No Are you currently unemployed and looking for a job?: No Are you interested in more education?: No Please select the resources that you would like help with: None Currently or been in a relationship where the following occur: No concerns reported THRIVE Score: 0 AUDIT C Alcohol Use Questionnaire (AUDIT-C) 1. How often do you have a drink containing alcohol?: Never Total Score: 0 NEEL-7 AMB Questionnaire NEEL-7 Date NEEL - 7 assessed: 04/12/24 Feeling nervous, anxious, or on edge: 0 = Not at all Not being able to stop or control worryin = Not at all Worrying too much about different things: 0 = Not at all Trouble relaxin = Not at all Being so restless that it is hard to sit still: 0 = Not at all Becoming easily annoyed or irritable: 0 = Not at all Feeling afraid as if something awful might happen: 0 = Not at all Total NEEL-7 score (0-4 normal; 5-9 mild; 10-14 moderate; 15-21 severe): 0 Source: Developed by Drs. Jesus Russell, Francois Patel and colleagues, with an educational gian from [employer]. Physical exam (Primary Care) Vital Signs: Last Vital Signs Temp 97.1 F 04/12/24 09:34 Pulse 70 04/12/24 09:34 BP 140/70 H 04/12/24 09:34 Pulse Ox 98 04/12/24 09:34 Oxygen Delivery Method Room Air 04/12/24 09:34 BMI result Body Mass Index 36.8 Tobacco/Smoking Status: Tobacco use Status Tobacco use date assessed 04/12/24 04/12/24 09:40 Patient Tobacco Use Status Former Tobacco user 04/12/24 09:40 Tobacco use type Cigarette 04/12/24 09:40 e-Cigarette/Vaping Use Never Used 04/12/24 09:40 PHQ-9: PHQ-9 Score PHQ-9: Total score 0 04/12/24 09:40 Depression Screening Interpretation: Negative Thrive Assessment: Date of Thrive Assessment Date Thrive assessed 04/12/24 04/12/24 09:40 Currently or been in a relationship where the following occur: No concerns reported Const General: alert; No acute distress Eyes Conjunctivae: conjunctivae normal Resp Auscultation: clear to auscultation bilaterally Cardio Rate: regular rate Rhythm: regular rhythm GI Inspection: Yes normal to inspection Skin Full body images: 2 1. L hip mass 6 by 6 inches no redness, Extrem General: Yes normal to inspection and No edema Coding Level of Care Code Est Pt Level 4 (32644) Diagnoses Osteoarthritis of left hip M16.12 Obesity (BMI 30-39.9) E66.9 Fatty liver K76.0 Hypercholesterolemia E78.00 Assessment & Plan Assessment & Plan (1) Osteoarthritis of left hip: Code(s): M16.12 - Unilateral primary osteoarthritis, left hip Category: Medical Plan: Patient is being followed up by orthopedics but concern about the left hip mass and advised MRI (2) Obesity (BMI 30-39.9): Code(s): E66.9 - Obesity, unspecified Category: Medical Plan: Diet and exercise (3) Fatty liver: Comment: 2005 Code(s): K76.0 - Fatty (change of) liver, not elsewhere classified Category: Medical Plan: Low-fat diet and exercise (4) Hypercholesterolemia: Code(s): E78.00 - Pure hypercholesterolemia, unspecified Category: Medical Plan: Avoid fried foods, chicken skin, eggs, butter margarine, pastries and meat. Be it pork or beef they have a lot of cholesterol LDL goal of less than 130 and triglyceride of less than 150. Plan - Pursue MRI with contrast to evaluate the identified soft tissue mass at the left hip, as advised by orthopedics. - Continue monitoring and lifestyle modifications to manage fatty liver disease and hypercholesterolemia. - Manage anemia and leukopenia through appropriate hematologic evaluations and interventions as required. - Maintain orthopedic follow-up to address progression in left hip osteoarthritis and respond to imaging results. Medications: New 2 tramadol 50 mg PO BID PRN 60 tabs 0RF pain M16.12 - Unilateral primary osteoarthritis, left hip Discontinued 2 ketorolac Discontinued Reason: Doctor's Order 10 mg PO Q8H 5 days 15 tabs 0RF pain M25.552 - Pain in left hip
== END | disposition home or self-care (01) ==
PROVIDERS: PCP Internal Medicine; Visit Provider Internal Medicine

== ENCOUNTER → 2024-04-12 09:31 | Outpatient (BNVA) | payer BC, SELFPAY | PROVIDERS: PCP Internal Medicine; Visit Provider Internal Medicine ==

== ENCOUNTER 2024-07-12 12:53 | Outpatient (AMB) | payer BC, SELFPAY ==
[2024-07-12 13:00] VITALS: BP 144/80; PULSE 82; O2SAT 98; BMI 36.5
--- NOTE | 2024-07-12 13:00 | MHC.PC.OV ---
Vital Signs 07/12/24 13:00 07/12/24 13:23 Height 6 ft Weight 269 lb 2 oz BMI 36.5 BP 144/80 H 140/70 H Blood Pressure Location Lt brachial Lt radial Position Sitting Sitting Pulse 82 Pulse Source Pulse Oximeter Pulse Oximetry (%) 98 Oxygen Delivery Method Room Air Intake Visit Reasons: Left hip mass, left hip osteoarthritis Product Responsibility Liaison Required: No Accompanied by: Self / Same As Patient Allergies No Known Allergies Allergy (Verified 07/12/24 13:01) Tobacco use date assessed: 07/12/24 Dental Screening Dental Screen Date: 07/12/24 Did you have a dental visit in the last 12 months?: No Did you have a dental problem in the last 6 months where you did not have access to dental care?: No Was dental information given to patient?: No HPI Left hip mass, left hip osteoarthritis HPI Details July 24, 2024 Dr. Fernandes then 1 week after [facility] for arthroplasty [facility] Medical History (Updated 04/12/24 @ 09:46 by Joycelyn Blankenship MD) Effusion, right knee Varicose veins of right lower extremity with inflammation Exposure to COVID-19 virus Cough Vision changes Tinea versicolor Erectile dysfunction Leg swelling Diarrhea Colonoscopy refused Mass of left hip region Colon cancer screening Blood pressure elevated without history of HTN No known health problems Surgical History No pertinent past surgical history Family History Maternal Grandfather Pancreatic cancer Social History Housing: Condominium Alcohol intake: current Alcohol intake frequency: a few times a month Alcohol type: beer Comment: 2-3 drinks QD Patient Tobacco Use Status: Former Tobacco user Tobacco use type: Cigarette Years Smoked: 11 years old e-Cigarette/Vaping Use: Never Used Second Hand Smoke Exposure: No service: No Current occupational status: employed 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 1. Little interest or pleasure in doing things: not at all 2. Feeling down, depressed, or hopeless: not at all 3. Trouble falling or staying asleep, or sleeping too much: not at all 4. Feeling tired or having little energy: not at all 5. Poor appetite or overeating: not at all 6. Feeling bad about yourself - or that you are a failure or have let yourself or your family down: not at all 7. Trouble concentrating on things, such as reading the newspaper or watching television: not at all 8. Moving or speaking so slowly that other people could have noticed. Or the opposite - being so fidgety or restless that you have been moving around a lot more than usual: not at all 9. Thoughts that you would be better off or of hurting yourself in some way: not at all Total score: 0 Source: Developed by Drs. Jesus Russell, Nichole Patino, Francois Espinoza and colleagues, with an educational gian from [facility]. Thrive Questionnaire Date Thrive assessed: 07/12/24 I am a: Patient What is your living situation today?: I have a steady place to live Within the past 12 months, did the food you bought not last and you didn't have the money to get more?: Never true Within the past 12 months, did you worry whether your food would run out before you got money to buy more?: Never true Do you have trouble paying for medicines?: Yes Do you have trouble getting transportation to medical appointments?: No Do you have trouble paying your heating and electricity bill?: No Do you have trouble taking care of your child, family member or friend?: No Do you have trouble with day-to-day activities such as bathing, preparing meals, shopping, managing finances, etc.?: No Are you currently unemployed and looking for a job?: No Are you interested in more education?: No Please select the resources that you would like help with: None Currently or been in a relationship where the following occur: No concerns reported THRIVE Score: 0 AUDIT C Alcohol Use Questionnaire (AUDIT-C) 1. How often do you have a drink containing alcohol?: Monthly or less 2. How many drinks containing alcohol do you have on a typical day when you are drinking?: 3 or 4 3. How often do you have six or more drinks on one occasion?: Monthly Total Score: 4 NEEL-7 AMB Questionnaire NEEL-7 Date NEEL - 7 assessed: 07/12/24 Feeling nervous, anxious, or on edge: 0 = Not at all Not being able to stop or control worryin = Not at all Worrying too much about different things: 0 = Not at all Trouble relaxin = Not at all Being so restless that it is hard to sit still: 0 = Not at all Becoming easily annoyed or irritable: 0 = Not at all Feeling afraid as if something awful might happen: 0 = Not at all Total NEEL-7 score (0-4 normal; 5-9 mild; 10-14 moderate; 15-21 severe): 0 Source: Developed by Drs. Jesus Russell, Nichole Patino, Francois Espinoza and colleagues, with an educational gian from [facility]. Physical exam (Primary Care) Vital Signs: Last Vital Signs Pulse 82 07/12/24 13:00 BP 140/70 H 07/12/24 13:23 Pulse Ox 98 07/12/24 13:00 Oxygen Delivery Method Room Air 07/12/24 13:00 BMI result Body Mass Index 36.5 Tobacco/Smoking Status: Tobacco use Status Tobacco use date assessed 07/12/24 07/12/24 13:07 Patient Tobacco Use Status Former Tobacco user 07/12/24 13:07 Tobacco use type Cigarette 07/12/24 13:07 e-Cigarette/Vaping Use Never Used 07/12/24 13:07 PHQ-9: PHQ-9 Score PHQ-9: Total score 0 07/12/24 13:24 Thrive Assessment: Date of Thrive Assessment Date Thrive assessed 07/12/24 07/12/24 13:07 Currently or been in a relationship where the following occur: No concerns reported Const General: alert; No acute distress Eyes Conjunctivae: conjunctivae normal Resp Auscultation: clear to auscultation bilaterally Cardio Rate: regular rate Rhythm: regular rhythm GI Inspection: Yes normal to inspection Extrem General: Yes normal to inspection and No edema Coding Level of Care Code Est Pt Level 4 (46913) Diagnoses Osteoarthritis of left hip M16.12 Mass of left hip region R22.42 Anemia, unspecified type D64.9 Anemia type: unspecified type Hypercholesterolemia E78.00 Fatty liver K76.0 Obesity (BMI 30-39.9) E66.9 Assessment & Plan Assessment & Plan (1) Osteoarthritis of left hip: Code(s): M16.12 - Unilateral primary osteoarthritis, left hip Category: Medical Plan: Planned left hip arthroplasty after drainage of the mass on the left hip (2) Mass of left hip region: Code(s): R22.42 - Localized swelling, mass and lump, left lower limb Category: Medical Plan: Most likely hematoma and planned I and D as well as tetracycline as a sclerosing agent (3) Anemia: Comment: Anemia of chronic disease Code(s): D64.9 - Anemia, unspecified Category: Medical Qualifiers: Anemia type: unspecified type Qualified Code(s): D64.9 - Anemia, unspecified Plan: Will continue to monitor. Stable (4) Hypercholesterolemia: Code(s): E78.00 - Pure hypercholesterolemia, unspecified Category: Medical Plan: Avoid fried foods, chicken skin, eggs, butter margarine, pastries and meat. Be it pork or beef they have a lot of cholesterol (5) Fatty liver: Comment: 2005 Code(s): K76.0 - Fatty (change of) liver, not elsewhere classified Category: Medical Plan: Low-fat diet and exercise (6) Obesity (BMI 30-39.9): Code(s): E66.9 - Obesity, unspecified Category: Medical Plan: Diet and exercise Plan History of Present Illness The patient is a 59-year-old male presenting for follow-up regarding two masses on the left hip, yet to be determined but potentially representing old hematomas. He reports a history of obesity, hepatic steatosis, and hypercholesterolemia, as well as previous injuries from falls that resulted in fractures to the left wrist and left ribs. Anemia has been diagnosed and correlated with elevated ferritin levels, as evidenced by past laboratory data. Past interventions included dietary changes for cholesterol management. The current care plan involves draining the masses prior to an anticipated left hip arthroplasty. In his medical management, the use of tetracycline as a sclerosing agent has been advised. Plans experience delays attributed to coordination between care providers and logistics involving referrals and consultations with different specialists. The patient has advocated for a closer locality for his planned hip procedure to alleviate travel stress. 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 - Physical Activity: Limited by hip condition; plans for physical therapy post-surgery - Pain Management: Primarily using Tylenol due to restrictions Review of Systems - Musculoskeletal: Reports left hip pain and difficulty due to masses - Cardiovascular: Denies any issues - Gastrointestinal: Denies changes; declined colonoscopy Physical Exam - Vitals- Blood pressure reading of 144/80 - Musculoskeletal- Presence of soft tissue masses on left lateral proximal thigh Results - Labs: Anemia with elevated ferritin noted in past blood work - Screening: Declined colonoscopy Plan The therapeutic approach includes the surgical drainage and examination of the soft tissue masses on the left hip, followed by tetracycline treatment as a sclerosing agent. An elective left hip arthroplasty is planned after ensuring resolution of the masses. Cholesterol management will continue via lifestyle adjustments, and blood pressure is monitored to remain conducive for surgery. I advised against NSAID use prior to surgery, advocating Tylenol for interim pain management. Post-operatively, the patient will engage in physical therapy to enhance recovery and maintain function. Patient was informed and verbally consented to the use of an ambient scribe for clinic note documentation during this visit. Discussion Notes I discussed with the patient the therapeutic plan, addressing the soft tissue masses on the left hip with surgical drainage followed potentially by tetracycline as a sclerosing agent. A left hip arthroplasty remains scheduled after resolution of the masses. I explained the need to cease NSAIDs a week before surgery due to their blood-thinning properties, advocating for Tylenol for pain control in the meantime. The importance of post-operative physical therapy was emphasized for optimal recovery, and arrangements for follow-up visits were outlined. I clarified patient instructions regarding all procedures and addressed patient's logistical concerns about scheduling and referrals. Patient Instructions - Arrange to discontinue any NSAIDs like Advil or Motrin a week before surgery. - Use Tylenol for pain management. - Adhere to a low-fat diet and regular exercise regimen. - Monitor blood pressure regularly and report significant changes. - Follow instructions carefully for post-operative care and engage in recommended physical therapy. - Attend all scheduled follow-up visits and procedures.
[2024-07-12 13:23] VITALS: BP 140/70
== END 2024-07-12 13:54 | disposition home or self-care (01) ==
LOC: HO.HMCH 12:54
PROVIDERS: PCP Internal Medicine; Visit Provider Internal Medicine
DX: M16.12 Unilateral primary osteoarthritis, left hip (principal); E66.9 Obesity, unspecified; Z68.36 Body mass index [BMI] 36.0-36.9, adult; R22.42 Localized swelling, mass and lump, left lower limb; D64.9 Anemia, unspecified; E78.00 Pure hypercholesterolemia, unspecified; K76.0 Fatty (change of) liver, not elsewhere classified

== ENCOUNTER → 2024-07-12 12:53 | Outpatient (BNVA) | payer BC, SELFPAY | PROVIDERS: PCP Internal Medicine; Visit Provider Internal Medicine | DX: Z13.89 Encounter for screening for other disorder (principal) ==

== ENCOUNTER 2024-09-14 03:05 | Emergency (ER) | payer BC, SELFPAY ==
--- NOTE | ~2024-09-14 | CT_ITS ---
CLINICAL HISTORY: recent THR 30, now bleeding extensively hematoma CT of the left hip without contrast Comparison: 09/24/2023 Findings: Visualized pelvic contents unremarkable. There is a heterogeneous ill-defined collection in the soft tissues overlying left hip, possible hematoma. Bony structures are intact with alignment maintained. Components of the prosthesis are grossly intact and well aligned. IMPRESSION: Lateral hip subcutaneous and deep collection extending down to arthroplasty site, possible hematoma. Clinical follow-up recommended let This document has been electronically signed by: Femi Dumas MD on 09/14/2024 07:54:28
[2024-09-14 03:14] VITALS: BP 136/79; PULSE 98; RESP 18; TEMP 36.9; O2SAT 98; BMI 30.5
[2024-09-14 04:23] VITALS: BP 136/79; PULSE 98; RESP 18; TEMP 36.9; O2SAT 98
[2024-09-14 05:57] VITALS: BP 144/80; PULSE 85; RESP 16; TEMP 36.7; O2SAT 99
--- NOTE | 2024-09-14 06:20 | ED_ITS ---
HPI - Wound/Laceration General Chief Complaint: Wound/Laceration Stated Complaint: recent hip surgery / filled with blood Time Seen by Provider: 09/14/24 05:48 Source: patient Mode of arrival: ambulatory Limitations: no limitations History of Present Illness ED Provider: Dr. Ree Tolbert HPI narrative: Patient comes to the emergency room complaining of bleeding from his surgical wound on the left side of the hip. Patient states that on September 03, patient had a total hip replacement at [facility] with Dr. Wade. According to the patient, due to bleeding, he needed a wound VAC which was placed at [facility]. Patient went home and he has been doing well. Patient denies any infection. Patient states that today he noticed that his surgical site started bleeding quite a bit. Patient states that his wound VAC collection bag filled up completely and he does not have any collection containers for the wound VAC anymore. Patient denies any fever any chills, no recent trauma, patient states that he has no pain at all. Patient takes full-dose aspirin daily, no blood thinners. Related Data Previous Rx's ?Medication ?Instructions ?Recorded blood pressure monitor (Blood #1 ea 02/16/22 Pressure Kit) comp.stocking,thigh,long,large #12 ea 07/29/23 incentive spirometry #1 ea 07/29/23 miconazole nitrate 2 % topical 1 appl topical BID #85 grams 11/25/23 powder (Zeasorb AF) tramadol 50 mg tablet 50 mg PO BID PRN pain #60 ta bs 04/12/24 Allergies Allergy/AdvReac Type Severity Reaction Status Date / Time No Known Allergies Allergy Verified 09/14/24 03:15 Review of Systems 2 Review of Systems: Constitutional : No Weight loss, No Fever, No Chills, No Night Sweats, No Fatigue, No Malaise ENT/Mouth : No Hearing loss, No Ear Pain, No Nasal Congestion, No Sinus Pain, No Hoarseness, No sore throat, No Rhinorrhea, No Swallowing Difficulty Eyes: No Eye Pain, No Swelling, No Redness, No Foreign Body, No Discharge, No Vision Changes Cardiovascular : No Chest Pain, No SOB, No Dyspnea on Exertion, No Orthopnea, No Edema, No Palpitations Respiratory : No Cough, No Sputum, No Wheezing, No Smoke Exposure, No Dyspnea Gastrointestinal : No Nausea, No Vomiting, No Diarrhea, No Constipation, No abdominal Pain, No Hematochezia, No Melena Genitourinary : no irregular bleeding, No Dysuria, No Urinary Frequency, No Hematuria, No Urinary Incontinence, No Urgency, No Flank Pain, No Urinary Flow Changes, No Hesitancy Musculoskeletal : No joint pain, No Myalgias, No Joint Swelling Skin : Complaining of new onset bleeding from the surgical site on the left hip status post hip replacement 11 days ago Neuro : No Weakness, No Numbness, No Paresthesias, No Loss of Consciousness, No Dizziness, No Headache Psych : No Anxiety/Panic, No Depression, No SI/HI/AH/VH, No Social Issues, Heme/Lymph: No Bruising, No Bleeding,No Lymphadenopathy Endocrine : No Polyuria, No Polydipsia, No Temperature Intolerance [facility] Past Medical History Medical History Effusion, right knee Varicose veins of right lower extremity with inflammation Exposure to COVID-19 virus Cough Vision changes Tinea versicolor Erectile dysfunction Leg swelling Diarrhea Colonoscopy refused Mass of left hip region Colon cancer screening Blood pressure elevated without history of HTN No known health problems Surgical History No pertinent past surgical history Family History Family History Maternal Grandfather Pancreatic cancer Social History Social History Housing: Condominium Alcohol intake: current Alcohol intake frequency: a few times a month Alcohol type: beer Comment: 2-3 drinks QD Patient Tobacco Use Status: Former Tobacco user Tobacco use type: Cigarette Years Smoked: 11 years old e-Cigarette/Vaping Use: Never Used Second Hand Smoke Exposure: No Advance Directives: No Do you have a plan to hurt others: No Plan service: No Current occupational status: employed 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 Oriented X3. No acute distress. Eyes: Pupils equal, round and reactive to light. ENT: Pharynx normal. Neck: Normal inspection. Neck supple. CVS: Normal heart rate and rhythm. Pulses normal. Respiratory: No respiratory distress. Breath sounds normal. Abdomen: Soft and nontender. Skin: Skin warm and dry. Normal skin color. Normal skin turgor. Extremities: L leg is more swollen thigh compartment is swollen but incision is c/d/i and not bleeding now when I examined him at 1054am. elyse in place, distal NV intact, compartments are soft. he has some pain to palpation on thigh Neuro: Oriented X 3. No motor deficit. No sensory deficit. CN2-12 intact Const: Other: Appearance: Alert. Oriented X3. No acute distress. Eyes: Pupils equal, round and reactive to light. ENT: Pharynx normal. Neck: Normal inspection. Neck supple. No lymph nodes noted. No crepitus CVS: Normal heart rate and rhythm. Pulses normal. Normal S1 and S2 Respiratory: No respiratory distress. Breath sounds normal. No Wheezing. No rales Abdomen: Soft and nontender. No rigidity. No distention. Skin: Skin warm and dry. Normal skin color. Normal skin turgor. Extremities: No lower extremity edema. No Lacerations. No Rash patient's wound VAC is in place on the left hip, upper thigh. The skin itself looks clean, no signs of infection/cellulitis. There is blood all around the sponge of the wound VAC and into the Tegaderm. Patient's wound VAC seems to be suctioning fluid. The collection container is almost full. Patient's hip feels a bit boggy, possible a hematoma collecting. Neuro: Oriented X 3. No motor deficit. No sensory deficit. Moving all extremities. No slurred speech. CN 2 through 12 grossly intact Psych: calm, cooperative, normal affect Course Course Course Narrative: Patient had a total hip replacement on the left side at [facility] 11 days ago. Patient states that he has no pain but now he is bleeding through his wound vac Tegaderm and his collection container is completely full. Patient denies any pain. I discussed with the patient that it is possible that he likely has a new onset seroma versus hematoma. We will obtain a CT. We will obtain a wound care consult here in the ED to help us change the patient's Tegaderm Reevaluation(s) Reevaluation #1: per Dr. Sheri becker to transfer to the ED so he can get wound vac on - transfer line aware BLS Reevaluation #2: no bleeding x 6 hours, does not want to pay for ambulance and insurance is not covering it. Medical Decision Making Consult Healthcare Provider Management of the patient was discussed with: Track Mechanic call to [facility] given his procedure wound care here - notes he went through two wound vac canisters since Tuesday, would not recommend repeat wound vac given hematoma possible on CT scan I am going to obtain labs and consult his ortho surgeon at [facility] 1030am Lab Data MDM Lab Attestation statement: I reviewed the patient's lab results. 09/14/24 10:23 09/14/24 10:23 Labs: Lab Results 09/14/24 Range/Units 10:23 WBC 8.6 (4.8-10.8) X10*3/uL RBC 2.86 L D (4.60-5.80) X10*6/uL Hgb 9.2 L D (14.0-18.0) g/dl Hct 27.1 L D (42.0-52.0) % MCV 94.8 (80.0-98.0) fL MCH 32.2 (27.0-33.0) pg MCHC 33.9 (31.0-36.0) g/dl RDW 13.7 (11.0-16.0) % Plt Count 485 H D (160-400) X10*3/uL MPV 9.4 (9.4-12.4) fL Immature Gran % (Auto) 1.3 H (0.0-0.4) % Neut % (Auto) 71.0 (45-73) % Lymph % (Auto) 14.1 L (20-40) % [place] % (Auto) 11.8 H (2-11) % Eos % (Auto) 1.0 (0-4) % Baso % (Auto) 0.8 (0-2) % Lymph # (Auto) 1.2 (1.2-4.9) X10*3/uL [place] # (Auto) 1.0 (0.1-1.2) X10*3/uL Eos # (Auto) 0.1 (0.0-0.4) X10*3/uL Baso # (Auto) 0.1 (0.0-0.2) X10*3/uL Abs Immat Gran (auto) 0.11 H (0.00-0.03) X10*3/uL Absolute Neuts (auto) 6.1 (2.0-8.3) x10*3/uL Absolute Nucleated RBC 0.000 (0.0-0.012) X10*3/uL Nucleated RBC % (auto) 0.0 (0.0-0.2) /100WBC Sodium 138 (135-145) mmol/L Potassium 3.9 (3.3-5.1) mmol/L Chloride 103 (96-108) mmol/L Carbon Dioxide 26 (22-29) mmol/L Anion Gap 13 (12-20) BUN 3 L (9-16) mg/dL Creatinine 0.56 (0.5-1.4) mg/dL Estim Creat Clear Calc 171.2 Estimated GFR > 60 Random Glucose 102 (60-115) mg/dL Calcium 9.4 (8.4-10.2) mg/dL Independent Interpretation I performed an independent interpretation of an: CT Scan (ill defined collections) Radiology Impression Discussion of test interpretation with radiology: I have reviewed the radiologist's reading. External Record Review External record reviewed: Outpatient record Discharge Plan Discharge Clinical Impression: Bleeding from left hip wound Patient Disposition: [facility] Transfer Details: [facility] Additional Instructions: please go to ED and present paperwork case discussed with Dr. Wade recommends going to [facility] ED from our ED though ambulance declined due to payment / insurance issues. On arrival to ED ortho should be notified as you are there for wound vac treatment. They have no supplies in the clinic. Prescriptions: No Action (DME) blood pressure monitor [Blood Pressure Kit] Kit See Rx Instructions .ROUTE .MEDSUPPLY Qty: 1 0RF Rx Instructions: As directed (DME) comp.stocking,thigh,long,large Misc See Rx Instructions .Route Qty: 12 0RF Rx Instructions: As directed 20-30 mm HG (DME) incentive spirometry See Rx Instructions .Route .MEDSUPPLY Qty: 1 0RF Rx Instructions: As directed tramadol 50 mg tablet 50 mg PO BID PRN (Reason: pain) Qty: 60 0RF miconazole nitrate [Zeasorb AF] 2 % powder 1 appl topical BID Qty: 85 11RF Print Language: Estonian
--- NOTE | 2024-09-14 10:31 | HO.WOUND ---
Wound Consult: Initial 59yr old?male admitted to [facility] on 09/14/24 - See progress notes and H&P for detailed history.? Wound consult placed for Left Hip Wound Vac leaking.? Patient agreeable to assessment and photo documentation.? Chart review and discussion with patient reports he had Total Hip Replacement on September 03 at [facility] with [place]. Wade. Patient reports he did have known hematoma prior to replacement that was removed and washed out by Dr. Fernandes at [facility]. Reports he had some complication at [facility] that lead to a 10 day stay - he is not able to recall the details that help him there. Ct Scan performed her at [facility] notes Deep Collection down to arthroplasty site possible hematoma . Patient reports he was unaware of hematoma prior to this scan - reports was placed in wound vac at [facility] due to small oozing. He reports he has changed the canister twice since discharge Tuesday. He reports dark red blood fluid in previous canisters as well. Patient reports he was discharged to home with two replacement canisters and used them both. He reports he was contacted by [facility] but when he returned the call they said he was not on their service. He reported to call Dr. Wade whom supposedly gave him another number to call to set up [facility] services. The history and details provided by the patient are not clear at times - he referred to PT at [facility] recommending STR but he refused but then they said he was cleared to go. When asked if he left facility AMA he reports he did not and was cleared to go home. He reports he came to [facility] instead of [facility] due to close proximity to his home. He was requesting discharge back to home and reports will follow up with Dr. Wade Tuesday as scheduled for his first follow up. 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 Given Ct scan I would recommend not reapplying NPWT (Negative Pressure Wound Therapy) and would recommend dry gauze dressing at this time. Recommend Dr. Wade be notified of hematoma development given recent THR. Discussed with direct care nurse and Dr. Frankel. Left Hip Surgical Site Etiology: ??Left Hip Surgical Site Wound Bed: elyse intact - observable red blood slowly oozing, no dehiscence noted not able to probe with Q tip between stapes. Drainage / Odor: red oozing noted - dark red blood in wound vac canister (this is his 3rd one since discharge Tuesday) concern for active bleeding. patient is not able to recall if he is on blood thinners besides Aspirin. Edges: ? well approximated Melyssa wound: ?Firm Induration would suspect normal given THR there is no fluctuance or Warmth noted Pain: denies pain Goals of Treatment: ? Dry cover dressing - discontinue wound vac and defer to Dr. Wade at [facility]. Recommendations: Left Hip - Cleanse with NS moist gauze, dry well. Cover with Dry gauze and ABD pad. Change daily and PRN for strike through bleeding / drainage. Defer to Dr. Wade at [facility]. Re-consult wound care Nurse for wound deterioration or wound changes.
[2024-09-14 10:36] LABS: MANUAL DIFF FLAG NO
[2024-09-14 10:55] LABS: Anion Gap 13 (12-20); Blood Urea Nitrogen 3 mg/dL (9-16); Calcium 9.4 mg/dL (8.4-10.2); Carbon Dioxide 26 mmol/L (22-29); Chloride 103 mmol/L (96-108); Creatinine Clr Calc Pharmacy 171.2; Estimated Glomerular Filt Rate > 60; Potassium 3.9 mmol/L (3.3-5.1); Sodium 138 mmol/L (135-145)
[2024-09-14 11:20] LABS: Hematocrit 27.1 % (42.0-52.0); Hemoglobin 9.2 g/dl (14.0-18.0); Imm Gran Abs Auto 0.11 X10*3/uL (0.00-0.03); Imm Gran Pct Auto 1.3 % (0.0-0.4); Lymphocytes Absolute Auto 1.2 X10*3/uL (1.2-4.9); Mean Corpuscular Hemoglobin 32.2 pg (27.0-33.0); Mean Corpuscular Volume 94.8 fL (80.0-98.0); NRBC Abs Auto 0.000 X10*3/uL (0.0-0.012); NRBC Pct Auto 0.0 /100WBC (0.0-0.2); Platelet Count 485 X10*3/uL (160-400); Red Blood Count 2.86 X10*6/uL (4.60-5.80); White Blood Count 8.6 X10*3/uL (4.8-10.8)
[2024-09-14 11:22] LABS: Mean Corpuscular HGB Conc 33.9 g/dl (31.0-36.0)
[2024-09-14 11:38] VITALS: BP 153/71; PULSE 85; RESP 16; TEMP 37; O2SAT 98
--- NOTE | 2024-09-14 11:56 | MHC.CM.ED ---
Received case management consult from Dr Frankel. Patient came to ER due to hip wound issues. Patient was discharged from [facility] on 09/11/2024 with a wound vac. Patient was supposed to be d/c with [facility]. Patient states they were unable to see him. Patient states he has no wound care supplies. Spoke with [facility]. Per Selina at [facility], patient declined visit on 09/11. Spoke with Yahaira, Salvage Cutter at [facility]. Patient was d/c'd with a Prevana Wound Vac. These wound vacs do not go home with supplies because they're changed by the surgeon in the office in about 1 week. [facility] was only arranged for physical therapy. Dr Frankel made aware.
[2024-09-14 13:05] VITALS: BP 154/88; PULSE 88; RESP 18; TEMP 36.9; O2SAT 98
== END 2024-09-14 13:06 | disposition short-term general hospital (02) ==
PROVIDERS: Emergency Medicine; Emergency Provider Emergency Medicine; PCP Internal Medicine
DX: M96.830 Postprocedural hemorrhage of a musculoskeletal structure following a musculoskeletal system procedure (principal); Z96.642 Presence of left artificial hip joint; Z79.82 Long term (current) use of aspirin
CPT/HCPCS: 36415; 73700; 80048; 85025; 99284; 99285

== ENCOUNTER → 2024-09-14 05:54 | Outpatient (BNV) | payer BC, SELFPAY | PROVIDERS: Emergency Provider Emergency Medicine; PCP Internal Medicine; Visit Provider Specialist | DX: L76.34 Postprocedural seroma of skin and subcutaneous tissue following other procedure (principal) | CPT/HCPCS: 73700 ==

== ENCOUNTER 2024-10-19 09:24 | Outpatient (AMB) | payer BC, SELFPAY ==
--- NOTE | 2024-10-19 09:27 | MHC.PC.OV ---
Vital Signs 10/19/24 09:28 Height 6 ft Weight 272 lb 4 oz BMI 36.9 BP 140/80 H Blood Pressure Location Lt brachial Position Sitting Pulse 84 Pulse Source Pulse Oximeter Temp 97.1 F Temp Source Temporal Artery Scan Pulse Oximetry (%) 97 Oxygen Delivery Method Room Air Intake Visit Reasons: Hip pain Intake Note: Patient is here to follow up on Left Hip pain. Air Conditioning Insulation Installer Required: No Glass Fitter: Not Required per policy Accompanied by: Self / Same As Patient Allergies No Known Allergies Allergy (Verified 10/19/24 09:28) Tobacco use date assessed: 10/19/24 Dental Screening Dental Screen Date: 07/12/24 [facility] Medical History (Updated 09/21/24 @ 18:57 by Joycelyn Blankenship MD) Effusion, right knee Varicose veins of right lower extremity with inflammation Exposure to COVID-19 virus Cough Vision changes Tinea versicolor Erectile dysfunction Leg swelling Diarrhea Colonoscopy refused Mass of left hip region Colon cancer screening Blood pressure elevated without history of HTN No known health problems Surgical History (Updated 10/19/24 @ 09:53 by Joycelyn Blankenship MD) History of total hip replacement Family History Maternal Grandfather Pancreatic cancer Social History Housing: Condominium Alcohol intake: current Alcohol intake frequency: a few times a month Alcohol type: beer Comment: 2-3 drinks QD Patient Tobacco Use Status: Former Tobacco user Tobacco use type: Cigarette Years Smoked: 11 years old e-Cigarette/Vaping Use: Never Used Second Hand Smoke Exposure: Yes service: No Current occupational status: employed 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, 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 Cognitive needs: No Hearing needs: No Vision needs: Yes Questionnaire Thrive Questionnaire Date Thrive assessed: 07/12/24 I am a: Patient What is your living situation today?: I have a steady place to live Within the past 12 months, did the food you bought not last and you didn't have the money to get more?: Never true Within the past 12 months, did you worry whether your food would run out before you got money to buy more?: Never true Do you have trouble paying for medicines?: Yes Do you have trouble getting transportation to medical appointments?: No Do you have trouble paying your heating and electricity bill?: No Do you have trouble taking care of your child, family member or friend?: No Do you have trouble with day-to-day activities such as bathing, preparing meals, shopping, managing finances, etc.?: No Are you currently unemployed and looking for a job?: No Are you interested in more education?: No Please select the resources that you would like help with: None Currently or been in a relationship where the following occur: No concerns reported THRIVE Score: 0 NEEL-7 AMB Questionnaire NEEL-7 Date NEEL - 7 assessed: 07/12/24 Source: Developed by Drs. Jesus Russell, Nichole Patino, Farncois Espinoza and colleagues, with an educational gian from [employer]. Physical exam (Primary Care) Vital Signs: Last Vital Signs Temp 97.1 F 10/19/24 09:28 Pulse 84 10/19/24 09:28 BP 140/80 H 10/19/24 09:28 Pulse Ox 97 10/19/24 09:28 Oxygen Delivery Method Room Air 10/19/24 09:28 BMI result Body Mass Index 36.9 Tobacco/Smoking Status: Tobacco use Status Tobacco use date assessed 10/19/24 10/19/24 09:36 Patient Tobacco Use Status Former Tobacco user 10/19/24 09:36 Tobacco use type Cigarette 10/19/24 09:36 e-Cigarette/Vaping Use Never Used 10/19/24 09:36 Thrive Assessment: Date of Thrive Assessment Date Thrive assessed 07/12/24 10/19/24 09:36 Currently or been in a relationship where the following occur: No concerns reported Const General: alert; No acute distress Eyes Conjunctivae: conjunctivae normal Resp Auscultation: clear to auscultation bilaterally Cardio Rate: regular rate Rhythm: regular rhythm GI Inspection: Yes normal to inspection Coding Level of Care Code Est Pt Level 4 (14194) Complex EM visit Add On G2211 Diagnoses S/P total left hip arthroplasty Z96.642 Anemia, unspecified type D64.9 Anemia type: unspecified type Fatty liver K76.0 Obesity (BMI 30-39.9) E66.9 Hypercholesterolemia E78.00 Peripheral vascular disease I73.9 Assessment & Plan Assessment & Plan (1) S/P total left hip arthroplasty: Comment: August 2024 Code(s): Z96.642 - Presence of left artificial hip joint Category: Surgical Plan: Patient follows up with orthopedics (2) Anemia: Comment: Anemia of chronic disease Code(s): D64.9 - Anemia, unspecified Category: Medical Qualifiers: Anemia type: unspecified type Qualified Code(s): D64.9 - Anemia, unspecified Plan: Will follow-up on the blood count (3) Fatty liver: Comment: 2005 Code(s): K76.0 - Fatty (change of) liver, not elsewhere classified Category: Medical Plan: Low-fat diet and exercise (4) Obesity (BMI 30-39.9): Code(s): E66.9 - Obesity, unspecified Category: Medical Plan: Diet and exercise (5) Hypercholesterolemia: Code(s): E78.00 - Pure hypercholesterolemia, unspecified Category: Medical Plan: Avoid fried foods, chicken skin, eggs, butter margarine, pastries and meat. Be it pork or beef they have a lot of cholesterol LDL goal of less than 130 and triglyceride of less than 150 (6) Peripheral vascular disease: Code(s): I73.9 - Peripheral vascular disease, unspecified Category: Medical Plan History of Present Illness The patient is a 59-year-old male presenting for a follow-up visit after left hip arthroplasty. The patient has a history of obesity and fatty liver disease, which have been ongoing concerns. He also has hypercholesterolemia, which is being managed with a low-fat diet and exercise, aiming for an LDL goal of less than 130 mg/dL and triglycerides of less than 150 mg/dL. The patient underwent left hip arthroplasty on September 03, 2024, due to osteoarthritis of the left hip. Post-surgery, he experienced a hematoma at the surgical site, which led to an ER visit on September 14 due to bleeding from the wound. His blood count at that time was 9.2 and 27.1, and a follow-up blood count is planned to monitor his recovery. Health Maintenance - Low-fat diet and exercise for hypercholesterolemia management - Blood work follow-up to monitor recovery post-arthroplasty Social History - Employment: Patient is seeking a letter for light duty work until November 14. Review of Systems Physical Exam Results - Labs: Blood count was 9.2 and 27.1 on September 14. - Imaging: CT scan showed hematoma status post-arthroplasty. Plan The patient will continue with a low-fat diet and exercise regimen to manage hypercholesterolemia, with a target LDL of less than 130 mg/dL and triglycerides of less than 150 mg/dL. A follow-up blood count will be conducted to monitor recovery from the hematoma post-arthroplasty. The patient is advised to follow up with orthopedics and continue monitoring the surgical site for any signs of complications. Patient was informed and verbally consented to the use of an ambient scribe for clinic note documentation during this visit. Discussion Notes During the visit, we discussed the importance of maintaining a low-fat diet and regular exercise to manage hypercholesterolemia. I advised the patient to monitor the surgical site for any signs of complications and to follow up with orthopedics as scheduled. We also planned for a follow-up blood count to assess recovery from the hematoma post-arthroplasty. Patient Instructions - Continue with a low-fat diet and regular exercise. - Monitor the surgical site for any signs of complications. - Follow up with orthopedics as scheduled. - Plan for a follow-up blood count to assess recovery. Orders: Orders Complete Blood Count Auto Diff Today I73.9 - Peripheral vascular disease, unspecified Comprehensive Met. Panel Today I73.9 - Peripheral vascular disease, unspecified Lipid Panel Today E78.00 - Pure hypercholesterolemia, unspecified, I73.9 - Peripheral vascular disease, unspecified Free T4 (Free Thyroxine) Today I73.9 - Peripheral vascular disease, unspecified Ferritin Today I73.9 - Peripheral vascular disease, unspecified Vitamin B12 and Folate Today I73.9 - Peripheral vascular disease, unspecified Reticulocyte Count Today I73.9 - Peripheral vascular disease, unspecified IRON PROFILE Today I73.9 - Peripheral vascular disease, unspecified Thyroid Stimulating Hormone Today I73.9 - Peripheral vascular disease, unspecified Prostate Specific Antigen Scr Today I73.9 - Peripheral vascular disease, unspecified Medications: New furosemide (Lasix) 20 mg PO DAILY 10 tabs 0RF I73.9 - Peripheral vascular disease, unspecified
[2024-10-19 09:28] VITALS: BP 140/80; PULSE 84; TEMP 36.2; O2SAT 97; BMI 36.9
--- OUTSIDE RECORDS SUMMARY | 2024-10-19 09:37 | XMS_ITS | Clinical Summary ---
Author Organization [facility] Address [address] [place] [address] Phone Care Team Providers Care Blow Mold Operator Name Role Phone Joycelyn Blankenship MD Primary Care Provider [phone] Social History Tobacco Use Types Packs/Day Years Used Date Smoking Tobacco: Never Assessed Education Answer Date Recorded Are you interested in more education? Not on jorje e 05/31/2024 Are you concerned about learning? Not on file 05/31/2024 No 05/31/2024 No 05/31/2024 Digital Access Answer Date Recorded No 05/31/2024 No 05/31/2024 Reliable internet access at home? Not on file 05/31/2024 Device with a working camera? Not on file Sex and Gender Information Value Date Recorded Sex Assigned at Not on file Legal Sex Male 9:28 AM EST Gender Identity Not on file Sexual Orientation Not on file Plan of Treatment Health Maintenance Due Date Last Done Comments Adult Td,Tdap Booster 1963 LIPID PANEL 1963 DEPRESSION SCREENING 1975 SMOKING Hx and SMOKELESS TOB ACCO SCREENING 02/11/1976 HEPATITIS C SCREENING 1981 HIV ONE-TIME SCREENING (18-6 5 YEARS) 1981 COLOGUARD 02/11/2008 COLONOSCOPY 02/11/2008 COLORECTAL CANCER SCREENING 02/11/2008 FIT TEST 02/11/2008 FOBT 02/11/2008 SIGMOIDOSCOPY 02/11/2008 VIRTUAL COLONOSCOPY 02/11/2008 PNEUMOCOCCAL VACCINES (50+ y ears) (1 of 1 - PCV) 2013 ZOSTER VACCINES (1 of 2) 2013 COVID-19 VACCINE ( - 2023-2 5 season) 2023 RSV VACCINE (1 - 1-dose 75+ series) 2038 HEPATITIS A VACCINES Aged Out No long er eligible based on patient's age to complete this topic HIB VACCINES Aged Out No longer eligi ble based on patient's age to complete this topic MENINGOCOCCAL VACCINES (ACWY) Aged Out No longer eligible based on patient's age to complete this topic MENINGOCOCCAL VACCINES (B) Aged Out N o longer eligible based on patient's age to complete this topic Medical Devices Not on file Insurance [employer] [address] [place] [address] [address] [place] [address] [place] [address] [employer] [facility] Care Teams Blow Mold Operator Relationship Specialty Start Date End Date Joycelyn Blankenship MD [address] [place] [id number] PCP - General Internal Medicine 05/10/24 Additional Source Comments The information contained in this document represents components of the legal health record. It is not the complete legal health record.[facility]
== END 2024-10-19 11:34 | disposition home or self-care (01) ==
LOC: HO.HMCH 09:25
PROVIDERS: PCP Internal Medicine; Visit Provider Internal Medicine
DX: D64.9 Anemia, unspecified (principal); K76.0 Fatty (change of) liver, not elsewhere classified; Z68.36 Body mass index [BMI] 36.0-36.9, adult; E66.9 Obesity, unspecified; Z96.642 Presence of left artificial hip joint; E78.00 Pure hypercholesterolemia, unspecified; I73.9 Peripheral vascular disease, unspecified

== ENCOUNTER 2024-11-20 09:02 | Outpatient (REF) | payer BC, SELFPAY ==
[2024-11-20 09:17] LABS: MANUAL DIFF FLAG NO
[2024-11-20 11:04] LABS: Hematocrit 31.5 % (42.0-52.0); Hemoglobin 10.7 g/dl (14.0-18.0); Imm Gran Abs Auto 0.02 X10*3/uL (0.00-0.03); Imm Gran Pct Auto 0.5 % (0.0-0.4); Lymphocytes Absolute Auto 0.8 X10*3/uL (1.2-4.9); Mean Corpuscular Hemoglobin 31.3 pg (27.0-33.0); Mean Corpuscular Volume 92.1 fL (80.0-98.0); NRBC Abs Auto 0.000 X10*3/uL (0.0-0.012); NRBC Pct Auto 0.0 /100WBC (0.0-0.2); Platelet Count 218 X10*3/uL (160-400); Red Blood Count 3.42 X10*6/uL (4.60-5.80); Reticulocytes Absolute 0.072 X10*6/uL (0.026-0.095); White Blood Count 3.7 X10*3/uL (4.8-10.8)
[2024-11-20 11:07] LABS: Mean Corpuscular HGB Conc 34.0 g/dl (31.0-36.0)
--- OUTSIDE RECORDS SUMMARY | 2024-11-20 11:17 | XMS_ITS | Clinical Summary ---
Author Organization [facility] Address [address] [place] [address] Phone Care Team Providers Care Abnormal Psychology Teacher Name Role Phone Joycelyn Blankenship MD Primary Care Provider [phone] Social History Tobacco Use Types Packs/Day Years [...] 2013 ZOSTER VACCINES (1 of 2) 2013 INFLUENZA VACCINE (#1) 2024 COVID-19 VACCINE ( - 2023-2 5 season) 2024 RSV VACCINE (1 - 1-dose 75+ series) [...] topic Medical Devices Not on file Insurance [employer] [facility] [employer] [facility] [address] [place] [id number] [place] [address] [employer] Care Teams Abnormal Psychology Teacher Relationship Specialty Start Date End Date Joycelyn Blankenship MD [address] [place] [address] [address] [place] [address] PCP - General Internal Medicine 05/10/24 Additional Source Comments The information contained in this document represents components of the legal health record. It is not the complete legal health record.[facility]
[2024-11-20 11:42] LABS: Alanine Aminotransferase 46 U/L (0-40); Albumin Level 4.0 g/dL (3.5-5.0); Alkaline Phosphatase 153 U/L (39-117); Anion Gap 13 (12-20); Aspartate Amino Transferase 88 U/L (5-37); Blood Urea Nitrogen < 3 mg/dL (9-16); Calcium 8.8 mg/dL (8.4-10.2); Carbon Dioxide 28 mmol/L (22-29); Chloride 97 mmol/L (96-108); Cholesterol 163 mg/dL (<200); Estimated Glomerular Filt Rate > 60; HDL Cholesterol 60 mg/dL (>40); Iron 47 mcg/dL (45-160); Percent Iron Saturation 15 % (15-50); Potassium 4.1 mmol/L (3.3-5.1); Sodium 134 mmol/L (135-145); Total Iron Binding Capacity 312 mcg/dL (228-428); Total Protein 7.9 g/dL (6.5-8.0); Triglycerides 60 mg/dL (<150); Unsaturated Iron Binding 265 ug/dL
[2024-11-20 12:07] LABS: Folate 8.0 ng/mL (> or = 4.0); Vitamin B12 170 pg/mL (200-900)
[2024-11-20 12:19] LABS: Ferritin 114 ng/mL (20-250); Free T4 (Free Thyroxine) 1.05 ng/dL (0.71-1.85); Thyroid Stimulating Hormone 1.12 uIU/mL (0.32-4.0)
== END 2024-11-20 09:03 | disposition home or self-care (01) ==
LOC: HO.LAB 09:02
PROVIDERS: PCP Internal Medicine; Visit Provider Internal Medicine
DX: Z12.5 Encounter for screening for malignant neoplasm of prostate (principal); E78.00 Pure hypercholesterolemia, unspecified; I73.9 Peripheral vascular disease, unspecified
CPT/HCPCS: 36415; 80053; 80061; 82607; 82728; 82746; 83540; 84153; 84439; 84443; 85025; 85045

== ENCOUNTER 2024-12-03 12:20 | Outpatient (AMB) | payer BC, SELFPAY ==
[2024-12-03 12:34] VITALS: BP 152/78; PULSE 79; O2SAT 98; BMI 38.6
--- NOTE | 2024-12-03 12:34 | A.OFFPC_ITS ---
Vital Signs 12/03/24 12:34 Height 6 ft Weight 285 lb BMI 38.6 BP 152/78 H Blood Pressure Location Lt brachial Position Sitting Pulse 79 Pulse Source Pulse Oximeter Pulse Oximetry (%) 98 Oxygen Delivery Method Room Air Intake Visit Reasons: Annual Exam Allergies No Known Allergies Allergy (Verified 12/03/24 12:34) Medication List - Last Reconciled 12/03/24 by Joycelyn Blankenship MD acetaminophen (Tylenol Extra Strength) 500 mg PO Q6H PRN blood pressure monitor (Blood Pressure Kit) As directed comp.stocking,thigh,long,large As directed 20-30 mm HG [incentive spirometry As directed] Tobacco use date assessed: 10/19/24 Dental Screening Dental Screen Date: 07/12/24 [facility] Medical History (Updated 12/03/24 @ 13:06 by Joycelyn Blankenship MD) Effusion, right knee Varicose veins of right lower extremity with inflammation Exposure to COVID-19 virus Cough Vision changes Tinea versicolor Erectile dysfunction Leg swelling Diarrhea Colonoscopy refused Mass of left hip region Colon cancer screening Blood pressure elevated without history of HTN No known health problems Surgical History (Updated 10/19/24 @ 09:53 by Joycelyn Blankenship MD) History of total hip replacement Family History Maternal Grandfather Pancreatic cancer Social History Housing: Condominium Alcohol intake: current Alcohol intake frequency: a few times a month Alcohol type: beer Comment: 2-3 drinks QD Patient Tobacco Use Status: Former Tobacco user Tobacco use type: Cigarette Years Smoked: 11 years old e-Cigarette/Vaping Use: Never Used Second Hand Smoke Exposure: Yes service: No Current occupational status: employed 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 1. Little interest or pleasure in doing things: not at all 2. Feeling down, depressed, or hopeless: not at all 3. Trouble falling or staying asleep, or sleeping too much: not at all 4. Feeling tired or having little energy: not at all 5. Poor appetite or overeating: not at all 6. Feeling bad about yourself - or that you are a failure or have let yourself or your family down: not at all 7. Trouble concentrating on things, such as reading the newspaper or watching television: not at all 8. Moving or speaking so slowly that other people could have noticed. Or the opposite - being so fidgety or restless that you have been moving around a lot more than usual: not at all 9. Thoughts that you would be better off or of hurting yourself in some way: not at all Total score: 0 Depression Screening Interpretation: Negative Depression Screening Done: Yes Source: Developed by Drs. Jesus Russell, Nichole Patino, Francois Espinoza and colleagues, with an educational gian from [employer]. Thrive Questionnaire Date Thrive assessed: 07/12/24 I am a: Patient What is your living situation today?: I have a steady place to live Within the past 12 months, did the food you bought not last and you didn't have the money to get more?: Never true Within the past 12 months, did you worry whether your food would run out before you got money to buy more?: Never true Do you have trouble paying for medicines?: Yes Do you have trouble getting transportation to medical appointments?: No Do you have trouble paying your heating and electricity bill?: No Do you have trouble taking care of your child, family member or friend?: No Do you have trouble with day-to-day activities such as bathing, preparing meals, shopping, managing finances, etc.?: No Are you currently unemployed and looking for a job?: No Are you interested in more education?: No Please select the resources that you would like help with: None Currently or been in a relationship where the following occur: No concerns reported THRIVE Score: 0 NEEL-7 AMB Questionnaire NEEL-7 Date NEEL - 7 assessed: 07/12/24 Source: Developed by Drs. Jesus Russell, Nichole Patino, Francois Espinoza and colleagues, with an educational gian from [employer]. Review of Systems Const Denies poor appetite and Denies weakness Eyes Denies no additional complaints ENT Reports Normal hearing present, Denies dizziness, Denies nasal congestion, Denies tinnitus and Denies sore throat Card Denies chest pain, Denies syncope, Denies rapid heart rate and Denies dyspnea Resp Denies cough and Denies dyspnea GI Denies change in stool character, Reports constipation, Denies diarrhea, Denies nausea and Denies vomiting Denies dysuria and Denies urinary frequency Neuro Reports Normal hearing present, Denies confusion, Denies dizziness, Denies syncope and Denies weakness Psych Denies confusion Physical exam (Primary Care) Vital Signs: Last Vital Signs Pulse 79 12/03/24 12:34 BP 152/78 H 12/03/24 12:34 Pulse Ox 98 12/03/24 12:34 Oxygen Delivery Method Room Air 12/03/24 12:34 BMI result Body Mass Index 38.6 Tobacco/Smoking Status: Tobacco use Status Tobacco use date assessed 10/19/24 12/03/24 12:40 Patient Tobacco Use Status Former Tobacco user 12/03/24 12:40 Tobacco use type Cigarette 12/03/24 12:40 e-Cigarette/Vaping Use Never Used 12/03/24 12:40 PHQ-9: PHQ-9 Score PHQ-9: Total score 0 12/03/24 12:48 Depression Screening Interpretation: Negative Thrive Assessment: Date of Thrive Assessment Date Thrive assessed 07/12/24 12/03/24 12:40 Currently or been in a relationship where the following occur: No concerns reported Const General: No confusion Orientation/consciousness: No confusion HENMT Head: Yes normocephalic Ears: external ears normal and TM's normal bilaterally Face and sinus: Yes normal facial exam Mouth: moist mucous membranes Throat: Yes tonsils normal Eyes Conjunctivae: conjunctivae normal Pupils: Equal, round and reactive pupils present and Pupil accommodation reflex normal Direct Ophthalmoscopy: normal light reflex Neck Neck: No lymphadenopathy Thyroid: Thyroid normal Chest Chest palpation & inspection: normal inspection of the chest Resp Effort & Inspection: normal respiratory effort and no audible wheezes Auscultation: clear to auscultation bilaterally, no crackles, no wheezes and lung sounds not diminished Cardio Rate: regular rate Rhythm: regular rhythm Peripheral pulses: radial pulses present and dorsalis pedis present GI Palpation (GI): no masses Auscultation: normal bowel sounds and normoactive bowel sounds Rectal Exam - Male: Yes deferred Skin General skin exam: no rashes or lesions noted Rashes: no rashes Neuro General: No confusion Cranial nerves: Yes Equal, round and reactive pupils present and Yes Normal hearing present Cognition (Neuro): normal cognition Gait exam (Neuro): Normal gait present Motor exam (neuro): 5/5 motor strength present throughout Deep tendon reflexes (DTR's): Right brachioradialis reflex intensity grade: 2+, Left brachioradialis reflex intensity grade: 2+, Right patellar reflex intensity grade: 2+ and Left patellar reflex intensity grade: 2+ Extrem Other: 3 +++ edema LE General: Yes edema Coding Level of Care Code Est Pt Prev Care 40-64y(44242) Diagnoses Annual physical exam Z00.00 S/P total left hip arthroplasty Z96.642 Anemia, unspecified type D64.9 Anemia type: unspecified type Obesity (BMI 30-39.9) E66.9 Hypercholesterolemia E78.00 Fatty liver K76.0 Vitamin B12 deficiency E53.8 Localized swelling of both lower legs R22.43 Assessment & Plan Assessment & Plan (1) Annual physical exam: Code(s): Z00.00 - Encounter for general adult medical examination without abnormal findings Category: Medical Plan: Patient is advised to eat healthy, keep well hydrated, keep active and have adequate sleep. (2) S/P total left hip arthroplasty: Comment: August 2024 Code(s): Z96.642 - Presence of left artificial hip joint Category: Surgical Plan: Continue to keep active (3) Anemia: Comment: Anemia of chronic disease Code(s): D64.9 - Anemia, unspecified Category: Medical Qualifiers: Anemia type: unspecified type Qualified Code(s): D64.9 - Anemia, unspecified Plan: Continue to monitor (4) Obesity (BMI 30-39.9): Code(s): E66.9 - Obesity, unspecified Category: Medical Plan: Diet and exercise (5) Hypercholesterolemia: Code(s): E78.00 - Pure hypercholesterolemia, unspecified Category: Medical Plan: Avoid fried foods, chicken skin, eggs, butter margarine, pastries and meat. Be it pork or beef they have a lot of cholesterol LDL goal of less than 130 and triglyceride of less than 150 (6) Fatty liver: Comment: 2005 Code(s): K76.0 - Fatty (change of) liver, not elsewhere classified Category: Medical Plan: Low-fat diet and exercise (7) Vitamin B12 deficiency: Code(s): E53.8 - Deficiency of other specified B group vitamins Category: Medical Plan: Vitamin B12 1000 mcg once a day (8) Localized swelling of both lower legs: Code(s): R22.43 - Localized swelling, mass and lump, lower limb, bilateral Category: Medical Plan History of Present Illness The patient is a 59-year-old male presenting for a physical examination and evaluation of bilateral lower extremity swelling. The patient has a history of obesity and has experienced a 13-pound weight gain since his last visit a month ago. Notably, he has fatty liver disease and hypercholesterolemia. He underwent left hip arthroplasty in August 2024 and was last seen in October 2024. Recent lab tests revealed anemia, currently improving, and mild hyponatremia although his renal function remains normal. His blood glucose is elevated at 109 mg/dL, and liver enzymes remain elevated as a chronic issue. The patient reports low vitamin B12 levels and is not using supplements despite recommendations. He consumes Gatorade to manage sodium levels due to previous overhydration concerns. The patient has a history of bilateral leg edema, which he suspects may be due to blood clots, and he is set to have an ultrasound done. He drinks a couple of beers daily and denies smoking or recreational drug use. Health Maintenance - Vitamin B12 supplementation recommended due to deficiency - Scheduled ultrasound to evaluate for blood clots in lower extremities - Follow-up with vascular surgeon scheduled - Dietary modifications and increased physical activity to manage weight Social History - Alcohol consumption: Drinks a couple of beers daily - Smoking: Denies smoking - Recreational drug use: Denies use Review of Systems - General: Reports weight gain of 13 pounds - Cardiovascular: Denies chest pain, orthopnea, or syncope - Respiratory: Denies dyspnea or cough - Gastrointestinal: Denies nausea, vomiting, or abdominal pain - Genitourinary: Reports nocturia, waking up twice at night to urinate - Neurological: Denies headaches, dizziness, or balance issues Physical Exam General: Cooperative, healthy appearing, comfortable, no acute distress and well developed Orientation: Patient oriented x3 Limitations: No limitations Head: Normal to inspection Ears: Hearing grossly normal bilaterally Nose: Normal external nose present Face and sinus: Normal facial exam Eyes: Appearance normal, both eyes and all related structures Neck: Normal visual inspection and Yes full ROM Respiratory: Normal respiratory effort and able to speak in complete sentences. Clear to auscultation bilaterally Cardiovascular: Regular rate and rhythm. Normal S1 and S2 GI: Normal to inspection. Soft to palpation and nontender Skin: No rashes or lesions noted Neuro: Patient oriented x3 Extremities: Swelling noted in both legs, otherwise normal to inspection Results - Labs: Hemoglobin 10.7 g/dL, hematocrit 31.5% (anemia, improving) - Labs: Sodium 134 mmol/L (mild hyponatremia) - Labs: Blood glucose 109 mg/dL (elevated) - Labs: Elevated liver enzymes (chronic) - Labs: Low vitamin B12 levels Plan Patient was informed and verbally consented to the use of an ambient scribe for clinic note documentation during this visit. 1. Obesity Significant weight gain has been noted, necessitating lifestyle changes including diet and exercise to control obesity. 2. Fatty Liver Disease Continued monitoring of liver enzymes and lifestyle modifications are recommended to manage the condition. 3. Hypercholesterolemia Management involves diet and exercise to improve lipid levels. 4. Anemia Anemia shows improvement, requiring continued monitoring and assessment of underlying causes. 5. Hyponatremia Fluid intake management, with Gatorade consumption as advised, to mitigate hyponatremia. 6. Elevated Blood Glucose Dietary changes and glucose monitoring are recommended to manage elevated levels. 7. Vitamin B12 Deficiency Initiation of B12 supplementation to address deficiency. 8. Bilateral Lower Extremity Edema Awaiting ultrasound results and follow-up with vascular surgery for further management. Discussion Notes I discussed with the patient the implications of his recent weight gain, reviewing strategies for incorporating lifestyle modifications to address o besity. We reviewed laboratory results, noting improvements in anemia and issues concerning elevated liver enzymes and high blood glucose levels. I advised vitamin B12 supplementation to tackle his deficiency. Continuation of Gatorade consumption was recommended to aid sodium regulation. Emphasis was laid on dietary adjustments, consistent exercise, and follow-up appointments for thorough management. We also planned an ultrasound to investigate potential blood clots in his lower extremities, with further evaluation by a vascular surgeon to occur post-ultrasound. Patient Instructions - Follow a balanced diet and increase physical activity to manage weight. - Start taking vitamin B12 supplements as prescribed. - Continue drinking Gatorade as advised to manage sodium levels. - Attend scheduled ultrasound and follow-up appointments with the vascular surgeon. - Monitor blood glucose levels and reduce sugar intake as discussed. - Monitor weight and report any significant changes. Orders: Orders US venous duplex LE Today R22.43 - Localized swelling, mass and lump, lower limb, bilateral Medications: Refilled cyanocobalamin (vitamin B-12) 1,000 mcg PO DAILY 90 caps 2RF E53.8 - Deficiency of other specified B group vitamins
== END 2024-12-03 13:27 | disposition home or self-care (01) ==
LOC: HO.HMCH 12:21
PROVIDERS: PCP Internal Medicine; Visit Provider Internal Medicine
DX: Z00.00 Encounter for general adult medical examination without abnormal findings (principal); D64.9 Anemia, unspecified; E66.9 Obesity, unspecified; Z68.38 Body mass index [BMI] 38.0-38.9, adult; Z96.642 Presence of left artificial hip joint; E78.00 Pure hypercholesterolemia, unspecified; K76.0 Fatty (change of) liver, not elsewhere classified; E53.8 Deficiency of other specified B group vitamins; R22.43 Localized swelling, mass and lump, lower limb, bilateral

== ENCOUNTER 2024-12-04 13:40 | Outpatient (REF) | payer BC, SELFPAY ==
--- NOTE | ~2024-12-04 | US_ITS ---
EXAMINATION: US TRIPLEX LOWER EXTREMITY, BILATERAL CLINICAL INFORMATION: R22.43 - Localized swelling, mass and lump, lower limb, bilateral COMPARISON: None available. TECHNIQUE: Color-flow triplex imaging with spectral analysis and compression Doppler were performed on the bilateral lower extremities. FINDINGS: Respiratory variation, normal compression and augmented flow are noted throughout the bilateral lower extremities. The visualized common femoral vein, superficial femoral vein, profunda femoral vein, popliteal vein and midcalf peroneal and posterior tibial venous segments show no evidence of deep venous thrombosis bilaterally. Bilateral proximal thigh lymph nodes measuring 12 mm short axis dimension and fatty hilum is noted. Subcutaneous soft tissue edema is noted in the left lower extremity. US/US venous duplex LE BI IMPRESSION: No evidence of deep venous thrombosis involving the bilateral lower extremities. Electronically signed by: Munir Koo MD 12/04/2024 02:36 PM EDT
--- OUTSIDE RECORDS SUMMARY | 2024-12-04 14:59 | XMS_ITS | Clinical Summary ---
Author Organization [facility] Address [address] [place] [address] Phone Care Team Providers Care X Ray Technologist Name Role Phone Joycelyn Blankenship MD Primary Care Provider [phone] Social History Tobacco Use Types Packs/Day Years [...] topic Medical Devices Not on file Insurance [employer] [facility] [employer] [facility] [address] [place] [id number] [place] [address] [facility] Care Teams X Ray Technologist Relationship Specialty Start Date End Date Joycelyn Blankenship MD [address] [place] [address] [address] [place] [address] PCP - General Internal Medicine 05/10/24 Additional Source Comments The information contained in this document represents components of the legal health record. It is not the complete legal health record.[facility]
== END 2024-12-04 13:41 | disposition home or self-care (01) ==
LOC: HO.US 13:40
PROVIDERS: PCP Internal Medicine; Visit Provider Internal Medicine
DX: R22.43 Localized swelling, mass and lump, lower limb, bilateral (principal)
CPT/HCPCS: 93970

== ENCOUNTER → 2024-12-04 13:44 | Outpatient (BNV) | payer BC, SELFPAY | PROVIDERS: PCP Internal Medicine; Visit Provider Radiology Diagnostic Radiology | DX: R22.43 Localized swelling, mass and lump, lower limb, bilateral (principal) | CPT/HCPCS: 93970 ==

== ENCOUNTER 2024-12-12 10:20 | Outpatient (REF) | payer BC, SELFPAY ==
--- NOTE | ~2024-12-12 | US_ITS ---
EXAMINATION: US LOWER EXTREMITY VENOUS (REFLUX EXAM), BILATERAL CLINICAL INFORMATION: Lower extremity swelling COMPARISON: None. TECHNIQUE: Color flow triplex imaging and compression Doppler was performed to evaluate both the deep and the superficial systems bilaterally. To evaluate the superficial system, the examination was performed in the upright position. Color-flow Doppler ultrasound and compression ultrasound were utilized. In addition, maneuvers were utilized to demonstrate reflux. FINDINGS: 1. DEEP VENOUS ULTRASOUND OF THE RIGHT LOWER EXTREMITY: Common Femoral Vein: Compressible, normal respiratory variation and augmented flow. Femoral Vein: Compressible, normal color flow and augmentation. Popliteal Vein: Compressible, normal augmentation. Deep Reflux: There is no evidence of reflux in the deep system in either the common femoral vein, superficial femoral or the popliteal vein. 2. SUPERFICIAL ULTRASOUND WITH DOPPLER OF RIGHT LOWER EXTREMITY: GREAT SAPHENOUS VEIN: Saphenofemoral Junction: 0.7 cm; Reflux: 0 ms Proximal Thigh: 0.6 cm; Reflux: 0 ms Mid Thigh: 0.5 cm; Reflux: 0 ms Distal Thigh: 0.5 cm; Reflux: 0 ms At Knee: 0.5 cm; Reflux: 0 ms Below Knee/Proximal Calf: 0.40 cm; Reflux: 0 ms Mid Calf: 0.5 cm; Reflux: 0 ms Ankle/Distal Calf: 0.4 cm; Reflux: 0 ms SMALL SAPHENOUS VEIN: Drainage: Thigh extension Saphenopopliteal Junction: 0.4 cm; Reflux: 0 ms Mid calf: 0.4 cm; Reflux: 0 ms Distal: 0.3 cm; Reflux: 0 ms VEIN OF GIACOMINI: Size: 0.4 cm Reflux: 0 ms PERFORATORS: Location: Greater saphenous vein, proximal calf Size: 0.4 cm Reflux: 0 ms Location: Greater saphenous vein, mid calf Size: 0.3 cm Reflux: 0 ms VARICOSITIES > 3mm: Location: Great saphenous vein, proximal calf Size: 0.3 cm Reflux: 0 ms 3. DEEP VENOUS ULTRASOUND OF THE LEFT LOWER EXTREMITY: Common Femoral Vein: Compressible, normal respiratory variation and augmented flow. Femoral Vein: Compressible, normal color flow and augmentation. Popliteal Vein: Compressible, normal augmentation. Deep Reflux: There is no evidence of reflux in the deep system in either the common femoral vein, superficial femoral or the popliteal vein. 4. SUPERFICIAL ULTRASOUND WITH DOPPLER OF LEFT LOWER EXTREMITY: GREAT SAPHENOUS VEIN: Saphenofemoral Junction: 1.0 cm; Reflux: 0 ms Proximal Thigh: 0.6 cm; Reflux: 0 ms Mid Thigh: 0.5 cm; Reflux: 0 ms Distal Thigh: 0.4 cm; Reflux: 0 ms At Knee: 0.4 cm; Reflux: 0 ms Below Knee/Proximl calf: 0.4 cm; Reflux: 0 ms Mid Calf: 0.4 cm; Reflux: 0 ms Distal Calf/Ankle: 0.5 cm; Reflux: 1300 ms SMALL SAPHENOUS VEIN: Drainage: Thigh extension Saphenopopliteal Junction: 0.3 cm; Reflux: 0 ms Mid calf: 0.4 cm; Reflux: 0 ms Distal calf: 0.3 cm; Reflux: 0 ms VEIN OF GIACOMINI: Size: NA Reflux: NA PERFORATORS: Location: Greater saphenous vein, recovery analyst into varicosity, mid calf Size: 0.2 cm Reflux: 0 ms Location: Greater saphenous vein, distal calf 19 cm above calcaneus Size: 0.4 cm Reflux: 1200 ms VARICOSITIES > 3mm: Location: Great saphenous vein, distal thigh Size: 0.3 cm Reflux: 0 ms Location: Great saphenous vein at knee Size: 0.6 cm Reflux: 0 ms US/US venous insuf bilat IMPRESSION: Right: No venous reflux is demonstrated. Left: Venous incompetence was demonstrated in the great saphenous vein at the ankle and into recovery analyst in the calf 19 cm cephalad to the calcaneus. Electronically signed by: Munir Koo MD 12/12/2024 12:04 PM EDT
== END 2024-12-12 10:21 | disposition home or self-care (01) ==
LOC: HO.US 10:20
PROVIDERS: PCP Internal Medicine; Visit Provider Surgery Vascular Surgery
DX: I83.11 Varicose veins of right lower extremity with inflammation (principal)
CPT/HCPCS: 93970

== ENCOUNTER → 2024-12-12 10:50 | Outpatient (BNV) | payer BC, SELFPAY | PROVIDERS: PCP Internal Medicine; Visit Provider Radiology Diagnostic Radiology | DX: I83.812 Varicose veins of left lower extremity with pain (principal) | CPT/HCPCS: 93970 ==

== ENCOUNTER 2024-12-18 12:46 | Outpatient (AMB) | payer BC, SELFPAY ==
[2024-12-18 12:57] VITALS: BMI 38.6
--- NOTE | 2024-12-18 12:57 | MHC.OFFVIS ---
Vital Signs 12/18/24 12:57 Height 6 ft Weight 285 lb BMI 38.6 Intake Visit Reasons: follow up s/p US Intake Note: follow up US 12/12/24 for LE swelling s/p Left hip Hematoma, went to [facility], needed Left hip surgery September 03, 2024. Done at [facility]. Right LE more swollen than the Left LE. 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 Retirement Consultant Required: No Accompanied by: Self / Same As Patient Allergies No Known Allergies Allergy (Verified 12/18/24 13:09) HPI HPI follow up s/p US: Details: The patient is a 59-year-old male presenting for follow-up regarding venous insufficiency. He underwent an ultrasound of the veins, which returned normal results, ruling out deep vein thrombosis and confirming good venous return. Despite these findings, the patient experiences significant swelling in both legs, which has been present since August. 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 He reports a history of left hip surgery performed on September 03, after which he experienced a hematoma and significant blood loss. There is no history of cancer, chemotherapy, or radiation therapy. The patient has been informed that the swelling is likely due to lymphedema, a condition characterized by progressive swelling due to impaired lymphatic drainage. He has noted skin changes and lymphedema, and there is no history of blood clots. [facility] Medical History Effusion, right knee Varicose veins of right lower extremity with inflammation Exposure to COVID-19 virus Cough Vision changes Tinea versicolor Erectile dysfunction Leg swelling Diarrhea Colonoscopy refused Mass of left hip region Colon cancer screening Blood pressure elevated without history of HTN No known health problems Surgical History History of total hip replacement Family History Maternal Grandfather Pancreatic cancer Social 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, 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 Cognitive needs: No Hearing needs: No Vision needs: Yes Review of Systems Const Reports as per HPI ENT Reports no additional complaints Card Denies chest pain, Denies chest pain at rest and Denies chest pain with activity Resp Denies chest congestion and Denies cough GI Reports no additional complaints Musc Details: pain over varicosities, aching of lower extremities, swelling, cramping, heaviness and tiredness, itching Denies abnormal gait Skin/Breast Reports pruritus and Denies wounds Neuro Reports no additional complaints and Denies abnormal gait Psych Denies no additional complaints Physical Exam Vital Signs: BMI result Body Mass Index 38.6 Const General: cooperative, healthy appearing and comfortable Orientation/consciousness: oriented to person, oriented to place and oriented to time Neck Carotids: no bruits Chest Chest palpation & inspection: normal inspection of the chest and normal palpation of entire chest wall Resp Effort & Inspection: normal respiratory effort and able to speak in complete sentences Cardio Rate: regular rate Heart sounds: S1 normal heart sound present and S2 normal heart sound present Peripheral pulses: Peripheral pulses 2+ throughout GI Inspection: Yes normal to inspection Skin Other: +2 edema, large rope-like varicosities greater than 4 mm CEAP Classification C4 - skin color changes Ep - Etiology Primary As - superficial veins P - reflux General skin exam: dry skin Neuro General: oriented to person, oriented to place and oriented to time Extrem Other: Right in cm: Thigh 65 Knee 50 Calf 50 Ankle 30 Left in cm: Thigh 64 Knee 50 Calf 49 Ankle 30 Right lower extremity: full ROM, normal capillary refill and edema Left lower extremity: full ROM, normal capillary refill and edema Psych Mental Status: mental status grossly normal Results Reviewed Results Reviewed: Brief summary of venous insufficiency testing is as follows: right great saphenous vein: negative right small saphenous vein: negative right accessory vein: none present left great saphenous vein: negative left small saphenous vein: negative left accessory vein: none present Please note there is no evidence of any venous aneurysms or significant tortuosity Assessment & Plan Assessment & Plan (1) Lymphedema: Code(s): I89.0 - Lymphedema, not elsewhere classified Category: Medical Plan: In short the patient has late on sent lymphedema. The patient has been on conservative treatment for at least 3 months with minimal relief. Patient has tried 30 mm of mercury compression garments, elevation, exercise healthy diet and doing manual says self MLD to the best of their ability for over 4 weeks but with no significant relief. She has been compliant with the program but has provided minimal relief. In addition on physical we are noticing hyperpigmentation, lymphorrhea, and hyperplasia. It appears that she has stage 2 lymphedema. Patient has completed multiple forms of conservative therapy yet significant symptoms remain. Patient requires the use of a pneumatic compression device which we will assist in trying to have the patient obtain them. A pneumatic compression device will help reduce swelling and other lymphedema comorbidities. Thank you for allowing us to assist in this patient's care. (2) Varicose veins with inflammation: Code(s): I83.10 - Varicose veins of unspecified lower extremity with inflammation Category: Medical Plan: Patient is negative for any significant reflux. We did discuss the pathophysiology of lower extremity swelling. We will workup up and treat him for lymphedema. He does have clinical stigmata of lymphedema. Coding Level of Care Code Est Pt Level 4 (80900) Diagnoses Lymphedema I89.0 Varicose veins with inflammation I83.10
--- OUTSIDE RECORDS SUMMARY | 2024-12-18 15:26 | XMS_ITS | Clinical Summary ---
Author Organization [facility] Address [address] [place] [id number] Phone Care Team Providers Care Hydro Mechanic Name Role Phone Joycelyn Blankenship MD Primary Care Provider [phone] Social History Tobacco Use Types Packs/Day Years [...] VACCINE (#1) 2024 COVID-19 VACCINE ( - 2024-2 6 season) 2024 RSV VACCINE (1 - 1-dose [...] topic Medical Devices Not on file Insurance [employer] [facility] [employer] [facility] [address] [place] [id number] [place] [address] [facility] Care Teams Hydro Mechanic Relationship Specialty Start Date End Date Joycelyn Blankenship MD [address] [place] [address] [address] [place] [address] PCP - General Internal Medicine 05/10/24 Additional Source Comments The information contained in this document represents components of the legal health record. It is not the complete legal health record.[facility]
== END 2024-12-18 13:30 | disposition home or self-care (01) ==
LOC: HO.HVS 12:47
PROVIDERS: PCP Internal Medicine; Visit Provider Surgery Vascular Surgery
DX: I89.0 Lymphedema, not elsewhere classified (principal); I83.10 Varicose veins of unspecified lower extremity with inflammation
CPT/HCPCS: 99214